=== PATIENT | female | born 1970 | race Caucasian/White ===

== ENCOUNTER 2018-09-28 22:49 | Observation (INO) | payer MEDICAID, SELFPAY ==
[2018-09-28 22:50] VITALS: BP 111/82; PULSE 109; RESP 16; TEMP 36.2; O2SAT 96; BMI 24.0
--- NOTE | 2018-09-28 23:04 | RAD_ITS ---
STUDY: X-RAY CHEST REASON FOR EXAM: Female, 48 years old. Short of breath and bruising. TECHNIQUE: Single AP portable view of the chest. COMPARISON: 02/23/2014. FINDINGS: The lungs are clear and expanded. There is no demonstrated pleural abnormality. Normal size heart. Normal mediastinum and andres. Normal visualized pulmonary arteries. Normal visualized aortic arch and descending thoracic aorta. Normal visualized thoracic spine. Epidural stimulator seen of the lower thoracic spine. Previous cervical spine surgery. Normal visualized ribs, clavicles, and shoulders. There is no demonstrated abnormality of the visualized soft tissue structures of the upper abdomen. RAD/Chest 1 View (Portable) IMPRESSION: No acute chest disease. Electronically Signed: Maxim Woodall MD at 23:28 EDT , Service support ,
--- NOTE | 2018-09-28 23:04 | EKG12_ITS ---
Test Reason : ABNORMAL LABS Blood Pressure : / mmHG Vent. Rate : 111 BPM Atrial Rate : 111 BPM P-R Int : 146 ms QRS Dur : 088 ms QT Int : 376 ms P-R-T Axes : 056 038 053 degrees QTc Int : 511 ms Sinus tachycardia Nonspecific ST abnormality Abnormal ECG Confirmed by AURELIO KRUSE, MACRINA ([id number]), publications editor LIBIA ZAIDI ([id number]) on 10/04/2018 4:17:41 PM Referred By: GLENYS Confirmed By:MACRINA CAREY MD
--- NOTE | 2018-09-28 23:06 | ED.VISSUMM ---
- ER Visit Summary Date of Service: 09/28/18 Chief Complaint: Abnormal labs History of Present Illness: The patient is a 48 F presenting due to abnormal labs. Patient states she was called by her primary care physician this evening and advised to come to the ED. She had blood work drawn earlier today and had elevated kidney function tests. Patient states she has felt fatigued and dizzy. She has had easy bruising. She has been having chest pain intermittently for the past 2 weeks. She states she had no chest pain today. She states she is short of breath which is chronic for her. She has nausea but no vomiting. She stopped her blood pressure medications 4 days ago per her PCP. Denies other complaints. Physical Examination: Vitals are stable. Patient is afebrile. Alert no acute distress. HEENT exam is unremarkable. Neck is supple. Lungs are clear and equal bilaterally. Heart is regular and tachycardic Abdomen is soft nontender nondistended. Extremities ecchymosis bilateral lower extremities Skin is warm and dry. No focal neurologic deficit. Remainder of exam is unremarkable. Emergency Department Course and Treatment: EKG shows sinus tachycardia rate of 111. Chest x-ray shows no acute process. CBC shows white count 13.5. Chemistries show potassium 2.8, BUN 53, creatinine 2.80. Previous creatinine was 1.8, 5 days ago. Troponin is negative. She was given potassium replacement, IV fluids. Discussed with the hospitalist for admission. Disposition: Admission Impression: GARCIA This note was generated with [employer] dictation software. It may contain incorrect words, spelling, and punctuation that were not noted in review of the chart prior to signing ED Disposition - Plan for ED Patient: Referrals: Care Physician,No Primary [NON-STAFF] -
--- NOTE | 2018-09-28 23:09 | ED.DCSUM_ITS ---
- ER Visit Summary Date of Service: 09/28/18 Chief Complaint: Abnormal labs History of Present Illness: The patient is a 48 F presenting due to abnormal labs. Patient states she was called by her primary care physician this evening and advised to come to the ED. She had blood work drawn earlier today and had elevated kidney function tests. Patient states she has felt fatigued and dizzy. She has had easy bruising. She has been having chest pain intermittently for the past 2 weeks. She states she had no chest pain today. She states she is short of breath which is chronic for her. She has nausea but no vomiting. She stopped her blood pressure medications 4 days ago per her PCP. Denies other co mplaints. Physical Examination: Vitals are stable. Patient is afebrile. Alert no acute distress. HEENT exam is unremarkable. Neck is supple. Lungs are clear and equal bilaterally. Heart is regular and tachycardic Abdomen is soft nontender nondistended. Extremities ecchymosis bilateral lower extremities Skin is warm and dry. No focal neurologic deficit. Remainder of exam is unremarkable. Emergency Department Course and Treatment: EKG shows sinus tachycardia rate of 111. Chest x-ray shows no acute process. CBC shows white count 13.5. Chemistries show potassium 2.8, BUN 53, creatinine 2.80. Previous creatinine was 1.8, 5 days ago. Troponin is negative. She was given potassium replacement, IV fluids. Discussed with the hospitalist for admission. Disposition: Admission Impression: GARCIA This note was generated with [employer] dictation software. It may contain incorrect words, spelling, and punctuation that were not noted in review of the chart prior to signing ED Disposition - Plan for ED Patient: Referrals: Care Physician,No Primary [NON-STAFF] -
[2018-09-28 23:21] LABS: Absolute Lymphocyte Count 4.28 X10^3/ul (0.83-4.51); Absolute Neutrophil Count 7.2 X10^3/uL (2.0-7.7); Basophil# 0.03 X10^3/uL; Basophil% 0.2 % (0-1); Eosinophil# 0.97 X10^3/uL; Eosinophils% 7.2 % (0-5); Hematocrit 38.2 % (37-47); Hemoglobin 13.4 g/dl (12.0-15.0); Lymphocyte # 4.28 X10^3/ul (4.0); Lymphocyte % 31.8 % (19-41); Mean Corp Hgb Conc 35.1 g/gl (32-36); Mean Corpuscular Volume 94.1 fL (81-99); Mean Platelet Vol. 9.3 fl (6.2-12.0); Monocyte# 0.94 X10^3/uL; Neutrophil # 7.21 X10^3/uL (2.7-7.7); Neutrophil % 53.4 % (47-70); POSITIVE COUNT NO; POSITIVE DIFFERENTIAL NO; POSITIVE MORPHOLOGY NO; Platelet Count 298 K/mm3 (150-450); RBC Distribution Width CV 13.3 % (11.6-14.6); Red Blood Count 4.06 M/mm3 (4.2-5.4); White Blood Count 13.5 K/mm3 (4.4-11.0)
[2018-09-28 23:31] LABS: Prothrombin Time (Protime)PT. 12.9 SECONDS (11.7-14.9)
[2018-09-28 23:32] LABS: Partial Thromboplast Time 26.8 Seconds (24.1-36.2)
[2018-09-28 23:39] LABS: Anion Gap 12 (5-15); BUN 53 mg/dL (7-18); BUN/Creat Ratio 18.9 RATIO (10-20); Calcium,Total 8.8 mg/dL (8.5-10.1); Chloride 109 mmol/L (98-107); EST Glomerular Filtration Rate 19 mL/min (>60); Est Glom Filt Rate - Afr Amer 23 mL/min (>60); Estimated Creatinine Clearance 21.22 ml/min; Glucose 139 mg/dL (74-106); Potassium 2.8 mmol/L (3.5-5.1); Sodium Level 139 mmol/L (136-145)
--- NOTE | 2018-09-29 00:13 | HP.PCM_ITS ---
Problem List (1) GARCIA (acute kidney injury) Status: Acute (2) Hypokalemia Status: Acute (3) Anxiety and depression Status: Chronic (4) Chronic back pain Status: Chronic Qualifiers: Back pain location: back pain in unspecified location Back pain laterality: unspecified Qualified Code(s): M54.9 - Dorsalgia, unspecified; G89.29 - Other chronic pain (5) HTN (hypertension) Status: Chronic Qualifiers: Hypertension type: essential hypertension Qualified Code(s): I10 - Essential (primary) hypertension History of Present Illness Date of Admission: 09/29/18 Chief Complaint: Abnormal labs, renal function worsening. The patient is a 48 y/o F w/ PMHx: HTN, Anxiety and Depression, Chronic back pain who presents to the [facility] ED on 09/29/18 per PCP direction secondary to abnormal labs with history of recent ongoing to 3-week fatigue, dizziness, lightheadedness, poor oral intake with PCP evaluation and labs obtained with abnormal renal function with creatinine 1.8 at that time with hold on her nephrotoxic BP regimen with recheck on day prior to ED presentation with creatinine noted to be further increased to 2.8 with immediate referral to the ED for evaluation. Patient notes that she has been fatigued, no fevers or chills, poor appetite, nausea in addition to similar prior symptoms. She also notes recent onset over the last approximate week notable extremity ecchymoses which she is never had prior. Work-up in the ED included BC with WBC 13.5, hemoglobin 13.4, platelet 298 without market left shift, unremarkable coags, BMP with potassium 2.8, chloride 109, carbon dioxide 18, BUN/creatinine 53/2.80, glucose 139, troponin less than 0.015, EKG with sinus tachycardia with no acute evidence of ischemia, chest x-ray with no acute cardiopulmonary findings. 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 Past Medical History Past Medical History (Chronic Problems): Chronic Problems Anxiety and depression (Chronic) Chronic back pain (Chronic) HTN (hypertension) (Chronic) Allergies tramadol Allergy (Verified 09/28/18 22:52) Hives Home Medications: Ambulatory Orders Medication Instructions Recorded Amantadine [Symmetrel] 100 mg PO DAILY 09/28/18 Amantadine [Symmetrel] 200 mg PO QHS 09/28/18 Aripiprazole [Abilify] 10 mg PO DAILY 09/28/18 Dextroamphetamine/Amphetamine 40 mg PO DAILY 09/28/18 [Adderall 20 mg Tablet] Hydrochlorothiazide [Hctz] 25 mg PO DAILY 09/28/18 Lorazepam [Ativan] 1 mg PO DAILY PRN PRN 09/28/18 Valsartan 160 mg PO DAILY 09/28/18 Surgical History: - - Spinal cord stimulator placement, neck surgery x3, lumbar back surgery x3, appendectomy, hysterectomy. Psychiatric History: Anxiety, Attn. 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 Smoking Status: Former smoker - Quit cigarette tobacco smoking approximately 8 months prior to current presentation with prior to this 1 pack/day. Tobacco Use: Non-smoker Alcohol: None Drugs: None - *Family History Maternal History Items: - - Patient notes a maternal family history of heart disease. Paternal History Items: - - Patient notes her father had severe back issues and of massive pulmonary emboli presumed secondary to immobility. Review of Systems Constitutional: Reports: Anorexia, Malaise, Weakness, Fatigue. Denies: Chills, Fever, Weight Change HEENT: Denies: Head Aches, Sinus Congestion, Sinus Drainage Cardiovascular: Denies: Chest Pain, Palpitations Respiratory: Denies: Cough, Shortness of breath at rest, Sputum production Gastrointestinal: Reports: Nausea. Denies: Abdominal Pain, Vomiting Genitourinary: Denies: Dysuria Musculoskeletal: Reports: Back Pain, Joint Pain, Joint stiffness, Joint swelling, Joint Tenderness, Leg Pain, Neck Pain Skin: Reports: Skin Changes. Denies: Rash, Wounds Neurological: Denies: Numbness, Tingling, Focal weakness Psychiatric: Reports: Anxiety, Depression. Denies: Homicidal Ideations, Suicidal Ideations Hematologic/ Lymphatic: Reports: Easy Bruising. Denies: Easy Bleeding VTE Information - Inpt Only VTE Present on Admission: No VTE Mechan Device Prophylaxis: None VTE Pharm Prophylaxis ordered?: No Reason prophylaxis not ordered:: Treatment Not Indicated Patient Problems: Active and Suspected Problems GARCIA (acute kidney injury) (Acute) Hypokalemia (Acute) Subjective: Seated upright in the ED, no acute distress, fatigued appearance. Objective: Physical Examination: General: awake, alert, oriented x 3 and cooperative, seated upright in the ED bed, fatigued appearance, no acute distress. Skin: normal color, turgor, no icterus, cyanosis except noted various staged ecchymoses to primarily the upper extremities as well as lower extremities and some very scant on the abdomen. HEENT: AT/NC, EOMI, PERRLA, mildly dry MM, no carotid bruits or JVD noted. Lungs: CTA bilaterally, moderate effort, mild decrease BL bases, no rales, ronchi or wheezing. Heart: Regular rate and rhythm; no gallop, rub audible. Abdomen: soft, NTTP, ND, normal BS, no HSM. Extremities: no cyanosis, clubbing, or edema. Neurological: patient awake, alert, oriented x 3; cognitive function intact; pupils equally reactive to light and accomodation; cranial nerves II-XII grossly normal, moving all 4 extremities, no focal deficits, strength moderately globally decreased. Psychiatric: affect appears fatigued, no acute evidence of depressive or anxiety feelings. - Physical Exam Vital Signs Temp Pulse Resp BP Pulse Ox 97.2 F L 109 H 16 111/82 H 96 09/28/18 22:50 09/28/18 22:50 09/28/18 22:50 09/28/18 22:50 09/28/18 22:50 Oxygen Delivery Method Room Air Weight: 140 lb Body Mass Index (BMI) 24.0 Laboratory Tests Past 24 Hrs 09/28/18 09/28/18 09/28/18 23:11 23:11 23:11 WBC 13.5 H RBC 4.06 L Hgb 13.4 Hct 38.2 MCV 94.1 MCH 33.0 H MCHC 35.1 RDW 13.3 RDW Differential 46.0 H Plt Count 298 MPV 9.3 Immature Gran % (Auto) 0.400 Neut % (Auto) 53.4 Lymph % (Auto) 31.8 [place] % (Auto) 7.0 Eos % (Auto) 7.2 H Baso % (Auto) 0.2 Absolute Neuts (auto) 7.2 Absolute Lymphs (auto) 4.28 Total Counted Not Reportable PT 12.9 INR 1.0 APTT 26.8 Sodium 139 Potassium 2.8 L Chloride 109 H Carbon Dioxide 18.0 L Anion Gap 12 BUN 53 H Creatinine 2.80 H Estim Creat Clear Calc 21.22 Est GFR (MDRD) Af Amer 23 L Est GFR (MDRD) Non-Af 19 L BUN/Creatinine Ratio 18.9 Glucose 139 H Calcium 8.8 Troponin I < 0.015 Assessment/Plan All Active Problems GARCIA (acute kidney injury) (Acute) Hypokalemia (Acute) The patient is a 48 y/o F w/ PMHx: HTN, Anxiety and Depression, Chronic back pain who presents to the [facility] ED on 09/29/18 per PCP direction secondary to abnormal labs with history of recent ongoing to 3-week fatigue, dizziness, lightheadedness, poor oral intake with PCP evaluation and labs obtained with abnormal renal function with creatinine 1.8 at that time with hold on her neph rotoxic BP regimen with recheck on day prior to ED presentation with creatinine noted to be further increased to 2.8 with immediate referral to the ED for evaluation. (1) Acute kidney injury: Unclear etiology, worsening function. Admission BUN/Cr 53/2.80, prior baseline creatinine noted to be normal although last 08/18/2012 0.9, most recent PCP directed 1.8. Will admit to [facility], will aggressively hydrate, hold nephrotoxic medications and repeat chemistry in AM. Will obtain renal US, FeNa assessment and request Nephrology consultation. (2) Hypokalemia: Admission K+ 2.8, supplementation given, repeat level in AM. Magnesium level pending. (3) Hyperglycemia: Admission glucose 139, hemoglobin A1c pending. (4) Frequent, New Onset Ecchymoses: Unclear etiology, CBC with normal hemoglobin and platelets as well as unremarkable coags. Given acute kidney injury suspect this is possibly a medication side effect. As noted amantadine has a frequent side effect of bruising and potentially with her renal dysfunction this is been exacerbated. As noted this is a medication that is not supposed to be abruptly discontinued therefore we will renally dose to 100 mg daily and would need to plan taper to ascertain if this is the etiology. (5) Anxiety and Depression: Given renal function changes will renally dose amantadine as unfortunately medication that we do not want to stop abruptly 100 mg daily. This medication does have a possible side effect of bruising which is one more common therefore consideration for weaning may need to be undertaken. We will continue patient Abilify as well as Ativan although will restrict dosing given renal function changes. Will hold patient Adderall and further rate renal function, if worsened may need to consider renal dosing or discontinuation. (6) Hypertension: She recently discontinued on her regimen secondary to worsening renal function, in interim we will maintain on PRN hydralazine. (7) DVT prophylaxis: Given recent severe onset of bruising will defer SCDs and chemoprophylaxis pending further evaluation. Code Visit Inpatient E&M: 04164 Init Hosp L3
[2018-09-29] MEDS: Potassium Chloride 10mEq/100mL 10 MEQ/100 ML IV.SOLN. 100 MEQ IV BOLUS ×4 (00:32→04:25)
[2018-09-29 00:53] VITALS: BMI 23.8
--- NOTE | 2018-09-29 01:11 | US_ITS ---
STUDY: RENAL ULTRASOUND - COMPLETE REASON FOR EXAM: Female, 48 years old. 3 week history of back pain and acute renal failure. TECHNIQUE: Ultrasound evaluation of the kidneys was performed with real-time and static van-scale imaging. COMPARISON: None. FINDINGS: RIGHT KIDNEY: Normal location of the right kidney, which is normal in size. The right kidney measures 11 cm x 5 cm x 6 cm. There is a normal cortex of the right kidney. The renal cortex measures 1.4 cm. There is a 6 mm x 11 mm x 7 mm renal cyst. Multiple small intrarenal calculi. The largest measures 3 mm. There is no right hydronephrosis. DISTAL RIGHT URETER: There is non-visualization of the distal right ureter. There is no demonstrated right ureterovesical junction calculus. There is a visualized right ureteral jet. LEFT KIDNEY: Normal location of the left kidney, which is normal in size. The left kidney measures 10.5 cm x 4.3 cm x 5.1 cm. There is diffuse thinning of the renal cortex. The renal cortex measures 0.8 cm. There is a 1.8 cm x 1.8 cm x 1.1 cm cyst. 2 small nonobstructive intrarenal calculi. The largest measures 4 mm. There is no left hydronephrosis. DISTAL LEFT URETER: There is non-visualization of the distal left ureter. There is no demonstrated left ureterovesical junction calculus. There is a visualized left ureteral jet. BLADDER: The distended urinary bladder has a volume of 346 ml. There is a normal wall thickness of the distended urinary bladder. There is no demonstrated mass within the urinary bladder. There are no demonstrated bladder calculi. US/Kidney and Bladder IMPRESSION: Small bilateral renal cysts and nonobstructing bilateral intrarenal calculi. Electronically Signed: Rivera Blakely, at 10:52 EDT , Service support ,
[2018-09-29 01:17] VITALS: BP 113/71; PULSE 83; RESP 18; TEMP 36.4; O2SAT 97
[2018-09-29 01:26] LABS: Magnesium 2.3 mg/dL (1.6-2.6)
[2018-09-29] MEDS: HYDROcodone Bitartrate/Apap 5/325 Tablet PO ×4 (01:31→21:45)
[2018-09-29] MEDS: 0.9% Normal Saline 1,000 ML 999 ML IV ×2 (01:32→03:16)
[2018-09-29 02:05] LABS: Hemoglobin A1c 5.7 % (4.2-6.3)
[2018-09-29] MEDS: 0.9% Normal Saline 1,000 ML 150 ML IV ×3 (04:14→19:44)
[2018-09-29] MEDS: Acetaminophen 325 MG Tablet 650 MG PO (04:18)
[2018-09-29] MEDS: LORazepam 1 MG Tablet PO (04:36)
[2018-09-29 06:15] LABS: Absolute Lymphocyte Count 3.24 X10^3/ul (0.83-4.51); Absolute Neutrophil Count 4.7 X10^3/uL (2.0-7.7); Basophil# 0.03 X10^3/uL; Basophil% 0.3 % (0-1); Eosinophil# 0.69 X10^3/uL; Eosinophils% 7.3 % (0-5); Hematocrit 34.5 % (37-47); Hemoglobin 11.8 g/dl (12.0-15.0); Lymphocyte # 3.24 X10^3/ul (4.0); Lymphocyte % 34.3 % (19-41); Mean Corp Hgb Conc 34.2 g/gl (32-36); Mean Corpuscular Hgb 32.4 pg (27.0-32.0); Mean Corpuscular Volume 94.8 fL (81-99); Mean Platelet Vol. 10.2 fl (6.2-12.0); Monocyte# 0.69 X10^3/uL; Monocyte% 7.3 % (0-10); Neutrophil # 4.74 X10^3/uL (2.7-7.7); Neutrophil % 50.2 % (47-70); Platelet Count 247 K/mm3 (150-450); RBC Distribution Width CV 13.1 % (11.6-14.6); RBC Distribution Width SD 43.7 fl (35.1-43.9); Red Blood Count 3.64 M/mm3 (4.2-5.4); White Blood Count 9.5 K/mm3 (4.4-11.0)
[2018-09-29 06:21] LABS: POSITIVE COUNT NO; POSITIVE DIFFERENTIAL NO; POSITIVE MORPHOLOGY NO
[2018-09-29 06:39] LABS: AST(SGOT) 26 U/L (15-37); Alanine Aminotransfer ALT/SGPT 33 U/L (13-56); Alkaline Phosphatase 131 U/L (45-117); Anion Gap 9 (5-15); BUN 42 mg/dL (7-18); BUN/Creat Ratio 21.3 RATIO (10-20); Calcium,Total 7.4 mg/dL (8.5-10.1); Chloride 117 mmol/L (98-107); Creatinine, Serum 1.97 mg/dL (0.55-1.02); EST Glomerular Filtration Rate 29 mL/min (>60); Est Glom Filt Rate - Afr Amer 35 mL/min (>60); Estimated Creatinine Clearance 30.16 ml/min; Glucose 91 mg/dL (74-106); Potassium 3.3 mmol/L (3.5-5.1); Sodium Level 143 mmol/L (136-145)
--- NOTE | 2018-09-29 07:43 | PCM.PN.HOSP ---
Patient Problems: Active and Suspected Problems GARCIA (acute kidney injury) (Acute) Hypokalemia (Acute) Subjective: Seen complains of feeling weak. Also complains of easy bruisability Objective: GENERAL: cooperative HEENT: Atraumatic; moist oral mucosa EYES; Anicteric, Normal Conjunctiva NECK; supple, normal thyroid, no distended JVD. RESPIRATORY: Diminished to auscultation bilaterally, CARDIOVASCULAR: Regular S1 S2, no audible murmurs GI: soft, non-tender, normoactive bowel sounds, : No Renal angle tenderness; EXTREMITIES: No edema, no clubbing, no cyanosis. MUSCULOSKELETAL: No Joint Tenderness; NEURO: Awake; no lateralizing signs. SKIN: Bruises on low back as well as thighs PSYCH; flat affect Vitals/I&O's: Vital Signs Temp Pulse Resp BP Pulse Ox 97.5 F L 83 18 113/71 97 09/29/18 01:17 09/29/18 01:17 09/29/18 01:17 09/29/18 01:17 09/29/18 01:17 Oxygen Delivery Method Room Air Weight: 62.959 kg Body Mass Index (BMI) 23.8 Intake and Output for Last 24 Hours 09/27/18 09/28/18 09/29/18 23:59 23:59 23:59 Intake Total 2821 / 2821 Output Total 1200 / 1200 Balance 1621 / 1621 Laboratory Results 09/28/18 23:11: WBC 13.5 H, RBC 4.06 L, Hgb 13.4, Hct 38.2, MCV 94.1, MCH 33.0 H, MCHC 35.1, RDW 13.3, RDW Differential 46.0 H, Plt Count 298, MPV 9.3, Immature Gran % (Auto) 0.400, Neut % (Auto) 53.4, Lymph % (Auto) 31.8, [place] % (Auto) 7.0, Eos % (Auto) 7.2 H, Baso % (Auto) 0.2, Absolute Neuts (auto) 7.2, Absolute Lymphs (auto) 4.28, Total Counted Not Reportable 09/28/18 23:11: PT 12.9, INR 1.0, APTT 26.8 09/28/18 23:11: Sodium 139, Potassium 2.8 L, Chloride 109 H, Carbon Dioxide 18.0 L, Anion Gap 12, BUN 53 H, Creatinine 2.80 H, Estim Creat Clear Calc 21.22, Est GFR (MDRD) Af Amer 23 L, Est GFR (MDRD) Non-Af 19 L, BUN/Creatinine Ratio 18.9, Glucose 139 H, Calcium 8.8, Troponin I < 0.015 09/28/18 23:11: Magnesium 2.3 09/28/18 23:11: Hemoglobin A1c 5.7 09/29/18 05:40: WBC 9.5, RBC 3.64 L, Hgb 11.8 L, Hct 34.5 L, MCV 94.8, MCH 32.4 H, MCHC 34.2, RDW 13.1, RDW Differential 43.7, Plt Count 247, MPV 10.2, Immature Gran % (Auto) 0.600, Neut % (Auto) 50.2, Lymph % (Auto) 34.3, [place] % (Auto) 7.3, Eos % (Auto) 7.3 H, Baso % (Auto) 0.3, Absolute Neuts (auto) 4.7, Absolute Lymphs (auto) 3.24, Total Counted Not Reportable 09/29/18 05:40: Sodium 143, Potassium 3.3 L, Chloride 117 H, Carbon Dioxide 17.0 L, Anion Gap 9, BUN 42 H, Creatinine 1.97 H, Estim Creat Clear Calc 30.16, Est GFR (MDRD) Af Amer 35 L, Est GFR (MDRD) Non-Af 29 L, BUN/Creatinine Ratio 21.3 H, Glucose 91, Calcium 7.4 L, Total Bilirubin 0.30, AST 26, ALT 33, Alkaline Phosphatase 131 H, Total Protein 6.0 L, Albumin 3.0 L, Globulin 3.0, Albumin/Globulin Ratio 1.0 09/29/18 06:45: Urine Creatinine 21.20 Current Medications Acetaminophen (Tylenol) 650 mg PO Q6H PRN PRN PRN Reason: Non-cardiac pain (mod-severe) Last Admin: 09/29/18 04:18 Dose: 650 mg Hydrocodone Bitart/Acetaminophen ([place] 5mg-325mg) 1 - 2 tablet PO Q6H PRN PRN PRN Reason: MOD-SEVERE PAIN (-03/31) Last Admin: 09/29/18 01:31 Dose: 2 tablet Al Hydroxide/Mg Hydroxide (Mylanta Ii) 15 - 30 ml PO Q4H PRN PRN PRN Reason: INDIGESTION Albuterol Sulfate (Ventolin Aerosols) 2.5 mg INHALATION Q2H PRN PRN PRN Reason: dyspnea, wheezing Amantadine HCl (Symmetrel) 100 mg PO DAILY JULIUS Aripiprazole (Abilify) 10 mg PO DAILY JULIUS Hydralazine HCl (Apresoline Iv) 10 mg IV Q4H PRN PRN PRN Reason: SBP > 160 Sodium Chloride () 1,000 mls @ 150 mls/hr IV .Q6H40M JULIUS Last Admin: 09/29/18 04:14 Dose: 150 mls/hr Lorazepam (Ativan) 1 mg PO DAILY PRN PRN PRN Reason: ANXIETY Last Admin: 09/29/18 04:36 Dose: 1 mg Morphine Sulfate () 1 - 2 mg IV Q4H PRN PRN PRN Reason: PAIN Ondansetron HCl (Zofran) 4 mg IV Q8H PRN PRN PRN Reason: NAUSEA/VOMITING Sodium Chloride () 5 - 15 ml IV UD PRN PRN Reason: SALINE FLUSH Medical Necessity - Tobacco Use Smoking Status: Former smoker Tobacco Use: Non-smoker Assessment/Plan All Active Problems GARCIA (acute kidney injury) (Acute) Hypokalemia (Acute) Patient is a 48-year-old lady who was sent to the ED by the PCP with abnormal labs and complaints of 3-week history of progressive weakness. Patient was found to have BUN of 53 and creatinine of 2.8. On assessment of acute kidney injury made admitted to a regular nursing floor for further management 1. Acute kidney injury patient has been admitted to a regular nursing floor currently being managed with aggressive IV fluid resuscitation with monitoring of electrolytes and consultation placed to nephrology with patient history of easy bruisability and generalized fatigue and worsening kidney function plan is to rule out rheumatologic etiology of her impaired kidney function. Ordered CAREN reflex panel 2. Hypokalemia with potassium of 2.8 repleted per protocol 3. Depression with anxiety 4. Hypertension blood pressure controlled meds 5. DVT prophylaxis low risk placed on bilateral SCDs Code Visit Inpatient E&M: 41467 [facility] Hosp L3
[2018-09-29 08:00] VITALS: BP 113/76; PULSE 75; RESP 18; TEMP 36.6; O2SAT 100
--- NOTE | 2018-09-29 08:09 | NURSING ---
ultrasound called and left message- this rn returned call at this time- state they are very busy and will call when they have a time. Gave work cell number for direct call.
--- NOTE | 2018-09-29 08:27 | NURSING ---
pt reports that she has had tingling to right hand and numbness to right 3 small toes possibly due to issues with nerves- has appt with Dr. Hall to determine if carpal tunnel or pinched nerve in neck.
[2018-09-29] MEDS: Morphine 2 MG/ML Syringe IV (08:45)
[2018-09-29] MEDS: 0.9% NaCl Peripheral Flush Adult/Peds IV ×2 (08:45→11:17)
[2018-09-29] MEDS: Amantadine 100 MG Capsule PO (08:45)
[2018-09-29] MEDS: ARIPiprazole 10 MG Tablet PO (08:45)
[2018-09-29 09:30] VITALS: O2SAT 100
[2018-09-29 11:19] LABS: Bacteria 0 SEEN /hpf (None Seen); Mucous, Urine 0 SEEN /hpf (<or=2+); Red Blood Cells-Urine 0 SEEN /hpf (0-5); White Blood Cells 0 SEEN /hpf (0-5)
[2018-09-29 11:25] LABS: Color, Urine Straw (Yellow); Glucose, Dipstick Normal (Normal); Ketone-Dipstick Negative (Negative); Leukocyte Esterase-Dipstick Negative /ul (Negative); Nitrite-Dipstick Negative (Negative); Occult Blood-Urine Negative /ul (Negative); Protein-Dipstick Negative (Negative); Specific Gravity, Urine 1.005 (1.002-1.030); Urine Bilirubin Dipstick Negative (Negative); Urine Clarity Clear (Clear); Urine Urobilinogen Normal (Normal)
[2018-09-29 11:32] LABS: Squamous Epithelial Cells - UA 0-5 SEEN /hpf (5-10)
--- NOTE | 2018-09-29 11:50 | CASEMGMT ---
RITCHIE LANDA DIRECTOR OF QUALITY CM to room to meet with patient for initial transition planning/care coordination assessment. RITCHIE LANDA introduced self and role at [facility]. Pt voices understanding and consents to assessment at this time. Pt sitting up on edge of bed in no distress at this time. Fiance and daughter @ bedside. Pt is A/O at this time and answers all questions appropriately. Care providers, pharmacy, and demographics verified/updated at this time. PCP: Isabel Specialists: Orthopaedic surgeon in [place] and a physician for her spinal cord stimulator. Preferred Pharmacy: [facility] Insurance: [employer]. States she does not have a Ophthalmic Medical Assistant. Prescription Benefit: Yes Living Will/HPOA: does not have LW or HCPOA . Interested in more information and would like to talk to ABDIEL to complete paperwork. AD instruction booklet given to pt. Leilani MEADOWS, notified. LNOK: Daughter. Living Arrangements: she lives in [place], but is currently staying with her daughter who lives in the area. Transportation: Pt states she rarely drives. States her daughter or fially usually provides transportation. has used [employer] transportation services on occasion. DME: Pt states she has the following: Spinal cord stimulator, back brace, wrist braces. Has a cane but does not use. has sleep apnea and used to have a CPAP but cannot find it and has not used in a couple of years. States she got it @ [facility]. Instructed pt to contact [facility] to find out what she will need to do to get another CPAP unit. Pt made aware she may need to have sleep studies completed again. Pt also aware [facility] is out of business but someone would be available who can assist her with getting her info transferred to another DME of her choice. Pt states she may be interested in getting a walker at some point. Pt made aware if she decides she wants/needs one, that she can discuss this with her PCP. HHC/SNF: No history of either and denies needs. No needs identified. Pt wishes to return home and has no concerns with going home at time of discharge. CM to follow for discharge planning/needs. Pt voices no further concerns/needs at this time. Advised pt to ask for CM if any further questions/concerns/needs arise. Voices understanding. PLAN: Home Berny GUIDO RN, CM
[2018-09-29 13:17] LABS: Urine Sodium 116 mmol/L (Not Establ.)
[2018-09-29 13:59] VITALS: BP 133/93; PULSE 73; RESP 18; TEMP 36.4; O2SAT 100
--- NOTE | 2018-09-29 15:04 | PCM.CONS.R ---
Consultation - Renal 09/29/18 PCP/ Referring MD: Requesting physician: Tressa Whiting Primary care physician: Bryon Hall MD Reason for Consultation:: GARCIA - History of Present Illness History of Present Illness: The patient is a 48 year old F who presented to [facility] for change in renal function. Her baseline creatinine is 0.9 in 2012, increased to 2.8 on admission now 1.97 with iv hydration. PMH for HTN, Anxiety and Depression, Chronic back pain with stimulator. She complains of poor appetite for a few days. She noticed bruising purplish discoloration of skin on arms and knees/legs past 2-3weeks. She had nausea without vomiting. Complains of a nonproductive cough, no hemoptysis or epistaxis. She noticed some chest pain. Had episode of fever x1 day. She is on HCTZ and valsartan for hypertension discontinued on admission. Potassium low at 2.8 to 3.3 today. Denied diarrhea. She is not on potassium supplements. She denied syncope but complained of fatigue and generalized weakness. Denies myalgias. No FH for lupus. She has foot drop from chronic back pain s/p neck and back surgery, nerve stimulator. Work-up in the ED included BC with WBC 13.5, hemoglobin 13.4, platelet 298. Renal US showed nonobstructing renal calculi with cysts bilaterally. CXR without infiltrates. Serologies ordered by PCP include CAREN with reflex panel. She has a history of tobacco use, quit 8 months ago, drinks socially weekly. She denied IVDA. 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 Denied liver disease, hepatitis. - Allergies Allergies: Allergies tramadol Allergy (Verified 09/28/18 22:52) Hives - Current Medications Current Medications: Current Medications Hydrocodone Bitart/Acetaminophen ([place] 5mg-325mg) 1 - 2 tablet PO Q4H PRN PRN PRN Reason: MOD-SEVERE PAIN (-03/31) Last Admin: 09/29/18 11:17 Dose: 2 tablet Al Hydroxide/Mg Hydroxide (Mylanta Ii) 15 - 30 ml PO Q4H PRN PRN PRN Reason: INDIGESTION Albuterol Sulfate (Ventolin Aerosols) 2.5 mg INHALATION Q2H PRN PRN PRN Reason: dyspnea, wheezing Amantadine HCl (Symmetrel) 100 mg PO DAILY JULIUS Last Admin: 09/29/18 08:45 Dose: 100 mg Aripiprazole (Abilify) 10 mg PO DAILY [facility] Last Admin: 09/29/18 08:45 Dose: 10 mg Sodium Chloride () 1,000 mls @ 150 mls/hr IV .Q6H40M JULIUS Last Admin: 09/29/18 12:57 Dose: 150 mls/hr Lorazepam (Ativan) 1 mg PO DAILY PRN PRN PRN Reason: ANXIETY Last Admin: 09/29/18 04:36 Dose: 1 mg Morphine Sulfate () 1 - 2 mg IV Q4H PRN PRN PRN Reason: PAIN Last Admin: 09/29/18 08:45 Dose: 2 mg Ondansetron HCl (Zofran) 4 mg IV Q8H PRN PRN PRN Reason: NAUSEA/VOMITING Sodium Chloride () 5 - 15 ml IV UD PRN PRN Reason: SALINE FLUSH Last Admin: 09/29/18 11:17 Dose: 5 ml - Past Medical History Past Medical History (Chronic Problems): Chronic Problems Anxiety and depression (Chronic) Chronic back pain (Chronic) HTN (hypertension) (Chronic) - Past Surgical History Surgical History: - - Spinal cord stimulator placement, neck surgery x3, lumbar back surgery x3, appendectomy, hysterectomy. - Social History Marital Status: Smoking Status: Former smoker Alcohol: Occasional - social drinker Drugs: None - denied IVDA - Family History Maternal History Items: Diabetes, Heart Disease, Hypertension, - Paternal History Items: - - Patient notes her father had severe back issues and of massive pulmonary emboli presumed secondary to immobility. Review of Systems Constitutional: Reports: Anorexia, Fever, Malaise, Weakness, Fatigue. Denies: Chills Eyes: Denies: Blurred vision, Vision Change HEENT: Denies: Head Aches Cardiovascular: Reports: Chest Pain - episodic. Denies: Edema, Orthopnea, Syncope Respiratory: Reports: Cough. Denies: Hemoptysis, Shortness of Breath Gastrointestinal: Reports: Nausea, - - bloated, anorexia. Denies: Abdominal Pain, Constipation, Diarrhea, Vomiting Genitourinary: Reports: - - no change in output. Denies: Dysuria, Hematuria Musculoskeletal: Reports: Back Pain, Neck Pain Skin: Reports: Rash, - - purpuric, lace like rash on knees, BLE, BUE Neurological: Reports: - - drag feet, no CVA hx. Denies: Focal weakness, Tremor, Seizures Psychiatric: Reports: Anxiety, Depression, - - ADHD Endocrine: Denies: Change in Body Habitus Hematologic/ Lymphatic: Reports: Easy Bruising, Purpura. Denies: Petechiae, Hx of blood clot Patient Problems: Active and Suspected Problems GARCIA (acute kidney injury) (Acute) Hypokalemia (Acute) - Physical Exam General: Alert, Oriented x3, Cooperative, No apparent distress HEENT: PERRLA, EOMI Oral: Dry Mucosa Neck: Supple, No JVD Lungs: Clear to auscultation Cardiovascular: Regular rate, No rub noted Abdomen: Bowel Sounds Present, Soft, Non Tender, Non-Distended, No Hepato-splenomegaly, - - RLE implantable stimulator Extremities: No clubbing, No cyanosis, No edema, Peripheral Pulses Normal Skin: - - mottling of legs bilaterally, multiple tattoos on ankles, upper extrem Musculoskeletal: No Muscle Wasting, Arthritic Changes Lymphatic: No Cervical, Supraclavicular, or Inguinal Adenopathy Neurological: Cranial nerves II-XII grossly intact Psych/Mental Status: Anxious, Alert and oriented to time, place, person, mood and affect Vital Signs Temp Pulse Resp BP Pulse Ox 97.5 F L 73 18 133/93 H 100 09/29/18 13:59 09/29/18 13:59 09/29/18 13:59 09/29/18 13:59 09/29/18 13:59 Oxygen Delivery Method Room Air Weight: 62.959 kg Body Mass Index (BMI) 23.8 Intake and Output for Last 24 Hours 09/27/18 09/28/18 09/29/18 23:59 23:59 23:59 Intake Total 4188 / 4188 Output Total 1525 / 1525 Balance 2663 / 2663 Laboratory Tests Past 24 Hrs 09/28/18 09/28/18 09/28/18 23:11 23:11 23:11 WBC 13.5 H RBC 4.06 L Hgb 13.4 Hct 38.2 MCV 94.1 MCH 33.0 H MCHC 35.1 RDW 13.3 RDW Differential 46.0 H Plt Count 298 MPV 9.3 Immature Gran % (Auto) 0.400 Neut % (Auto) 53.4 Lymph % (Auto) 31.8 [place] % (Auto) 7.0 Eos % (Auto) 7.2 H Baso % (Auto) 0.2 Absolute Neuts (auto) 7.2 Absolute Lymphs (auto) 4.28 Total Counted Not Reportable PT 12.9 INR 1.0 APTT 26.8 Sodium 139 Potassium 2.8 L Chloride 109 H Carbon Dioxide 18.0 L Anion Gap 12 BUN 53 H Creatinine 2.80 H Estim Creat Clear Calc 21.22 Est GFR (MDRD) Af Amer 23 L Est GFR (MDRD) Non-Af 19 L BUN/Creatinine Ratio 18.9 Glucose 139 H Hemoglobin A1c Calcium 8.8 Magnesium Total Bilirubin AST ALT Alkaline Phosphatase Troponin I < 0.015 Total Protein Albumin Globulin Albumin/Globulin Ratio Urine Color Urine Clarity Urine pH Ur Specific [place] Urine Protein Urine Glucose (UA) Urine Ketones Urine Occult Blood Urine Nitrite Urine Bilirubin Urine Urobilinogen Ur Leukocyte Esterase Urine RBC Urine WBC Ur Squamous Epith Cells Urine Bacteria Urine Mucus Ur Random Sodium Urine Creatinine CAREN Screen ANA LILIA-1 Antibody SS-A/Ro IgG Antibody SS-B/La IgG Antibody Sm (Cottrell) Antibody PSYCHOMETRICIAN Antibody Scl-70 Scleroderma Ab Double Strand DNA Ab Centromere B Antibody 09/28/18 09/28/18 09/29/18 23:11 23:11 05:00 WBC RBC Hgb Hct MCV MCH MCHC RDW RDW Differential Plt Count MPV Immature Gran % (Auto) Neut % (Auto) Lymph % (Auto) [place] % (Auto) Eos % (Auto) Baso % (Auto) Absolute Neuts (auto) Absolute Lymphs (auto) Total Counted PT INR APTT Sodium Potassium Chloride Carbon Dioxide Anion Gap BUN Creatinine Estim Creat Clear Calc Est GFR (MDRD) Af Amer Est GFR (MDRD) Non-Af BUN/Creatinine Ratio Glucose Hemoglobin A1c 5.7 Calcium Magnesium 2.3 Total Bilirubin AST ALT Alkaline Phosphatase Troponin I Total Protein Albumin Globulin Albumin/Globulin Ratio Urine Color Urine Clarity Urine pH Ur Specific [place] Urine Protein Urine Glucose (UA) Urine Ketones Urine Occult Blood Urine Nitrite Urine Bilirubin Urine Urobilinogen Ur Leukocyte Esterase Urine RBC Urine WBC Ur Squamous Epith Cells Urine Bacteria Urine Mucus Ur Random Sodium Urine Creatinine CAREN Screen Pending ANA LILIA-1 Antibody Pending SS-A/Ro IgG Antibody Pending SS-B/La IgG Antibody Pending Sm (Cottrell) Antibody Pending PSYCHOMETRICIAN Antibody Pending Scl-70 Scleroderma Ab Pending Double Strand DNA Ab Pending Centromere B Antibody Pending 09/29/18 09/29/18 09/29/18 05:40 05:40 06:45 WBC 9.5 RBC 3.64 L Hgb 11.8 L Hct 34.5 L MCV 94.8 MCH 32.4 H MCHC 34.2 RDW 13.1 RDW Differential 43.7 Plt Count 247 MPV 10.2 Immature Gran % (Auto) 0.600 Neut % (Auto) 50.2 Lymph % (Auto) 34.3 [place] % (Auto) 7.3 Eos % (Auto) 7.3 H Baso % (Auto) 0.3 Absolute Neuts (auto) 4.7 Absolute Lymphs (auto) 3.24 Total Counted Not Reportable PT INR APTT Sodium 143 Potassium 3.3 L Chloride 117 H Carbon Dioxide 17.0 L Anion Gap 9 BUN 42 H Creatinine 1.97 H Estim Creat Clear Calc 30.16 Est GFR (MDRD) Af Amer 35 L Est GFR (MDRD) Non-Af 29 L BUN/Creatinine Ratio 21.3 H Glucose 91 Hemoglobin A1c Calcium 7.4 L Magnesium Total Bilirubin 0.30 AST 26 ALT 33 Alkaline Phosphatase 131 H Troponin I Total Protein 6.0 L Albumin 3.0 L Globulin 3.0 Albumin/Globulin Ratio 1.0 Urine Color Urine Clarity Urine pH Ur Specific [place] Urine Protein Urine Glucose (UA) Urine Ketones Urine Occult Blood Urine Nitrite Urine Bilirubin Urine Urobilinogen Ur Leukocyte Esterase Urine RBC Urine WBC Ur Squamous Epith Cells Urine Bacteria Urine Mucus Ur Random Sodium Urine Creatinine 21.20 CAREN Screen ANA LILIA-1 Antibody SS-A/Ro IgG Antibody SS-B/La IgG Antibody Sm (Cottrell) Antibody PSYCHOMETRICIAN Antibody Scl-70 Scleroderma Ab Double Strand DNA Ab Centromere B Antibody 09/29/18 09/29/18 11:10 11:10 WBC RBC Hgb Hct MCV MCH MCHC RDW RDW Differential Plt Count MPV Immature Gran % (Auto) Neut % (Auto) Lymph % (Auto) [place] % (Auto) Eos % (Auto) Baso % (Auto) Absolute Neuts (auto) Absolute Lymphs (auto) Total Counted PT INR APTT Sodium Potassium Chloride Carbon Dioxide Anion Gap BUN Creatinine Estim Creat Clear Calc Est GFR (MDRD) Af Amer Est GFR (MDRD) Non-Af BUN/Creatinine Ratio Glucose Hemoglobin A1c Calcium Magnesium Total Bilirubin AST ALT Alkaline Phosphatase Troponin I Total Protein Albumin Globulin Albumin/Globulin Ratio Urine Color Straw Urine Clarity Clear Urine pH 7.0 Ur Specific [place] 1.005 Urine Protein Negative Urine Glucose (UA) Normal Urine Ketones Negative Urine Occult Blood Negative Urine Nitrite Negative Urine Bilirubin Negative Urine Urobilinogen Normal Ur Leukocyte Esterase Negative Urine RBC 0 SEEN Urine WBC 0 SEEN Ur Squamous Epith Cells 0-5 SEEN Urine Bacteria 0 SEEN Urine Mucus 0 SEEN Ur Random Sodium 116 Urine Creatinine CAREN Screen ANA LILAI-1 Antibody SS-A/Ro IgG Antibody SS-B/La IgG Antibody Sm (Cottrell) Antibody PSYCHOMETRICIAN Antibody Scl-70 Scleroderma Ab Double Strand DNA Ab Centromere B Antibody Clinical Impression(s) from Imaging Studies Chest X-Ray 09/28/18 23:04 IMPRESSION: No acute chest disease. Electronically Signed: Maxim Woodall MD at 23:28 EDT , Service support , Renal Ultrasound 09/29/18 01:11 IMPRESSION: Small bilateral renal cysts and nonobstructing bilateral intrarenal calculi. Electronically Signed: Rivera Blakely, at 10:52 EDT , Service support , Assessment/Plan All Active Problems GARCIA (acute kidney injury) (Acute) Hypokalemia (Acute) 1. GARCIA with FENA >1%. Creatinine 2.8 improved to 1.97 today with hydration and discontinuation of diuretics and ARB. Continue with iv hydration. Renal US with nonobstructing renal calculi and cysts. Creatinine baseline 0.9 in 2012, 0.85 on 06/24/15 from [facility] records. UA today without protein or microscopic hematuria to suggest vasculitis in kidney. 2. Purpuric rash with leukocytosis, fever at home. Blood cx ordered in ED. Serologies ordered pending. Suggest cryoglobulins, ANCA to evaluate for vasculitis. Pt with multiple tattoos. Denies hepatitis, IVDA. Check hepatitis panel. 3. HTN hold ARB, diuretics. BP stable 4. Hypokalemia likely due to poor intake, thiazide diuretic. Agree with replacement K 2.8 increased to 3.3 today 5. NAG metabolic acidosis, denied diarrhea. 6. Anxiety, ADHD on adderall 7. Hx tobacco, etoh use.
--- NOTE | 2018-09-29 15:10 | CON.PCM_ITS ---
Consultation - Renal 09/29/18 PCP/ Referring MD: Requesting physician: Tressa Whiting Primary care physician: Bryon Hall MD Reason for Consultation:: GARCIA - History of Present Illness History of Present Illness: The patient is a 48 year old F who presented to [facility] for change in renal function. Her baseline creatinine is 0.9 in 2012, increased to 2.8 on admission now 1.97 with iv hydration. PMH for HTN, Anxiety and Depression, Chronic back pain with stimulator. She complains of poor appetite for a few days. She noticed bruising purplish discoloration of skin on arms and knees/legs past 2- 3weeks. She had nausea without vomiting. Complains of a nonproductive cough, no hemoptysis or epistaxis. She noticed some chest pain. Had episode of fever x1 day. She is on HCTZ and valsartan for hypertension discontinued on admission. Potassium low at 2.8 to 3.3 today. Denied diarrhea. She is not on potassium supplements. She denied syncope but complained of fatigue and generalized weakness. Denies myalgias. No FH for lupus. She has foot drop from chronic back pain s/p neck and back surgery, nerve stimulator. Work-up in the ED included BC with WBC 13.5, hemoglobin 13.4, platelet 298. R enal US showed nonobstructing renal calculi with cysts bilaterally. CXR without infiltrates. Serologies ordered by PCP include CAREN with reflex panel. She has a history of tobacco use, quit 8 months ago, drinks socially weekly. She denied IVDA. 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 Denied liver disease, hepatitis. - Allergies Allergies: Allergies tramadol Allergy (Verified 09/28/18 22:52) Hives - Current Medications Current Medications: Current Medications Hydrocodone Bitart/Acetaminophen ([place] 5mg-325mg) 1 - 2 tablet PO Q4H PRN PRN PRN Reason: MOD-SEVERE PAIN (-03/31) Last Admin: 09/29/18 11:17 Dose: 2 tablet Al Hydroxide/Mg Hydroxide (Mylanta Ii) 15 - 30 ml PO Q4H PRN PRN PRN Reason: INDIGESTION Albuterol Sulfate (Ventolin Aerosols) 2.5 mg INHALATION Q2H PRN PRN PRN Reason: dyspnea, wheezing Amantadine HCl (Symmetrel) 100 mg PO DAILY JULIUS Last Admin: 09/29/18 08:45 Dose: 100 mg Aripiprazole (Abilify) 10 mg PO DAILY [facility] Last Admin: 09/29/18 08:45 Dose: 10 mg Sodium Chloride () 1,000 mls @ 150 mls/hr IV .Q6H40M JULIUS Last Admin: 09/29/18 12:57 Dose: 150 mls/hr Lorazepam (Ativan) 1 mg PO DAILY PRN PRN PRN Reason: ANXIETY Last Admin: 09/29/18 04:36 Dose: 1 mg Morphine Sulfate () 1 - 2 mg IV Q4H PRN PRN PRN Reason: PAIN Last Admin: 09/29/18 08:45 Dose: 2 mg Ondansetron HCl (Zofran) 4 mg IV Q8H PRN PRN PRN Reason: NAUSEA/VOMITING Sodium Chloride () 5 - 15 ml IV UD PRN PRN Reason: SALINE FLUSH Last Admin: 09/29/18 11:17 Dose: 5 ml - Past Medical History Past Medical History (Chronic Problems): Chronic Problems Anxiety and depression (Chronic) Chronic back pain (Chronic) HTN (hypertension) (Chronic) - Past Surgical History Surgical History: - - Spinal cord stimulator placement, neck surgery x3, lumbar back surgery x3, appendectomy, hysterectomy. - Social History Marital Status: Smoking Status: Former smoker Alcohol: Occasional - social drinker Drugs: None - denied IVDA - Family History Maternal History Items: Diabetes, Heart Disease, Hypertension, - Paternal History Items: - - Patient notes her father had severe back issues and of massive pulmonary emboli presumed secondary to immobility. Review of Systems Constitutional: Reports: Anorexia, Fever, Malaise, Weakness, Fatigue. Denies: Chills Eyes: Denies: Blurred vision, Vision Change HEENT: Denies: Head Aches Cardiovascular: Reports: Chest Pain - episodic. Denies: Edema, Orthopnea, Syncope Respiratory: Reports: Cough. Denies: Hemoptysis, Shortness of Breath Gastrointestinal: Reports: Nausea, - - bloated, anorexia. Denies: Abdominal Pain, Constipation, Diarrhea, Vomiting Genitourinary: Reports: - - no change in output. Denies: Dysuria, Hematuria Musculoskeletal: Reports: Back Pain, Neck Pain Skin: Reports: Rash, - - purpuric, lace like rash on knees, BLE, BUE Neurological: Reports: - - drag feet, no CVA hx. Denies: Focal weakness, Tremor, Seizures Psychiatric: Reports: Anxiety, Depression, - - ADHD Endocrine: Denies: Change in Body Habitus Hematologic/ Lymphatic: Reports: Easy Bruising, Purpura. Denies: Petechiae, Hx of blood clot Patient Problems: Active and Suspected Problems GARCIA (acute kidney injury) (Acute) Hypokalemia (Acute) - Physical Exam General: Alert, Oriented x3, Cooperative, No apparent distress HEENT: PERRLA, EOMI Oral: Dry Mucosa Neck: Supple, No JVD Lungs: Clear to auscultation Cardiovascular: Regular rate, No rub noted Abdomen: Bowel Sounds Present, Soft, Non Tender, Non-Distended, No Hepato- splenomegaly, - - RLE implantable stimulator Extremities: No clubbing, No cyanosis, No edema, Peripheral Pulses Normal Skin: - - mottling of legs bilaterally, multiple tattoos on ankles, upper extrem Musculoskeletal: No Muscle Wasting, Arthritic Changes Lymphatic: No Cervical, Supraclavicular, or Inguinal Adenopathy Neurological: Cranial nerves II-XII grossly intact Psych/Mental Status: Anxious, Alert and oriented to time, place, person, mood and affect Vital Signs Temp Pulse Resp BP Pulse Ox 97.5 F L 73 18 133/93 H 100 09/29/18 13:59 09/29/18 13:59 09/29/18 13:59 09/29/18 13:59 09/29/18 13:59 Oxygen Delivery Method Room Air Weight: 62.959 kg Body Mass Index (BMI) 23.8 Intake and Output for Last 24 Hours 09/27/18 09/28/18 09/29/18 23:59 23:59 23:59 Intake Total 4188 / 4188 Output Total 1525 / 1525 Balance 2663 / 2663 Laboratory Tests Past 24 Hrs 09/28/18 09/28/18 09/28/18 23:11 23:11 23:11 WBC 13.5 H RBC 4.06 L Hgb 13.4 Hct 38.2 MCV 94.1 MCH 33.0 H MCHC 35.1 RDW 13.3 RDW Differential 46.0 H Plt Count 298 MPV 9.3 Immature Gran % (Auto) 0.400 Neut % (Auto) 53.4 Lymph % (Auto) 31.8 [place] % (Auto) 7.0 Eos % (Auto) 7.2 H Baso % (Auto) 0.2 Absolute Neuts (auto) 7.2 Absolute Lymphs (auto) 4.28 Total Counted Not Reportable PT 12.9 INR 1.0 APTT 26.8 Sodium 139 Potassium 2.8 L Chloride 109 H Carbon Dioxide 18.0 L Anion Gap 12 BUN 53 H Creatinine 2.80 H Estim Creat Clear Calc 21.22 Est GFR (MDRD) Af Amer 23 L Est GFR (MDRD) Non-Af 19 L BUN/Creatinine Ratio 18.9 Glucose 139 H Hemoglobin A1c Calcium 8.8 Magnesium Total Bilirubin AST ALT Alkaline Phosphatase Troponin I < 0.015 Total Protein Albumin Globulin Albumin/Globulin Ratio Urine Color Urine Clarity Urine pH Ur Specific [place] Urine Protein Urine Glucose (UA) Urine Ketones Urine Occult Blood Urine Nitrite Urine Bilirubin Urine Urobilinogen Ur Leukocyte Esterase Urine RBC Urine WBC Ur Squamous Epith Cells Urine Bacteria Urine Mucus Ur Random Sodium Urine Creatinine CAREN Screen ANA LILIA-1 Antibody SS-A/Ro IgG Antibody SS-B/La IgG Antibody Sm (Cottrell) Antibody SUPERVISOR [employer]PAIR Antibody Scl-70 Scleroderma Ab Double Strand DNA Ab Centromere B Antibody 09/28/18 09/28/18 09/29/18 23:11 23:11 05:00 WBC RBC Hgb Hct MCV MCH MCHC RDW RDW Differential Plt Count MPV Immature Gran % (Auto) Neut % (Auto) Lymph % (Auto) [place] % (Auto) Eos % (Auto) Baso % (Auto) Absolute Neuts (auto) Absolute Lymphs (auto) Total Counted PT INR APTT Sodium Potassium Chloride Carbon Dioxide Anion Gap BUN Creatinine Estim Creat Clear Calc Est GFR (MDRD) Af Amer Est GFR (MDRD) Non-Af BUN/Creatinine Ratio Glucose Hemoglobin A1c 5.7 Calcium Magnesium 2.3 Total Bilirubin AST ALT Alkaline Phosphatase Troponin I Total Protein Albumin Globulin Albumin/Globulin Ratio Urine Color Urine Clarity Urine pH Ur Specific [place] Urine Protein Urine Glucose (UA) Urine Ketones Urine Occult Blood Urine Nitrite Urine Bilirubin Urine Urobilinogen Ur Leukocyte Esterase Urine RBC Urine WBC Ur Squamous Epith Cells Urine Bacteria Urine Mucus Ur Random Sodium Urine Creatinine CAREN Screen Pending ANA LILIA-1 Antibody Pending SS-A/Ro IgG Antibody Pending SS-B/La IgG Antibody Pending Sm (Cottrell) Antibody Pending SUPERVISOR BOIL[employer] REPAIR Antibody Pending Scl-70 Scleroderma Ab Pending Double Strand DNA Ab Pending Centromere B Antibody Pending 09/29/18 09/29/18 09/29/18 05:40 05:40 06:45 WBC 9.5 RBC 3.64 L Hgb 11.8 L Hct 34.5 L MCV 94.8 MCH 32.4 H MCHC 34.2 RDW 13.1 RDW Differential 43.7 Plt Count 247 MPV 10.2 Immature Gran % (Auto) 0.600 Neut % (Auto) 50.2 Lymph % (Auto) 34.3 [place] % (Auto) 7.3 Eos % (Auto) 7.3 H Baso % (Auto) 0.3 Absolute Neuts (auto) 4.7 Absolute Lymphs (auto) 3.24 Total Counted Not Reportable PT INR APTT Sodium 143 Potassium 3.3 L Chloride 117 H Carbon Dioxide 17.0 L Anion Gap 9 BUN 42 H Creatinine 1.97 H Estim Creat Clear Calc 30.16 Est GFR (MDRD) Af Amer 35 L Est GFR (MDRD) Non-Af 29 L BUN/Creatinine Ratio 21.3 H Glucose 91 Hemoglobin A1c Calcium 7.4 L Magnesium Total Bilirubin 0.30 AST 26 ALT 33 Alkaline Phosphatase 131 H Troponin I Total Protein 6.0 L Albumin 3.0 L Globulin 3.0 Albumin/Globulin Ratio 1.0 Urine Color Urine Clarity Urine pH Ur Specific [place] Urine Protein Urine Glucose (UA) Urine Ketones Urine Occult Blood Urine Nitrite Urine Bilirubin Urine Urobilinogen Ur Leukocyte Esterase Urine RBC Urine WBC Ur Squamous Epith Cells Urine Bacteria Urine Mucus Ur Random Sodium Urine Creatinine 21.20 CAREN Screen ANA LILIA-1 Antibody SS-A/Ro IgG Antibody SS-B/La IgG Antibody Sm (Cottrell) Antibody SUPERVISOR BOILER REPAIR Antibody Scl-70 Scleroderma Ab Double Strand DNA Ab Centromere B Antibody 09/29/18 09/29/18 11:10 11:10 WBC RBC Hgb Hct MCV MCH MCHC RDW RDW Differential Plt Count MPV Immature Gran % (Auto) Neut % (Auto) Lymph % (Auto) [place] % (Auto) Eos % (Auto) Baso % (Auto) Absolute Neuts (auto) Absolute Lymphs (auto) Total Counted PT INR APTT Sodium Potassium Chloride Carbon Dioxide Anion Gap BUN Creatinine Estim Creat Clear Calc Est GFR (MDRD) Af Amer Est GFR (MDRD) Non-Af BUN/Creatinine Ratio Glucose Hemoglobin A1c Calcium Magnesium Total Bilirubin AST ALT Alkaline Phosphatase Troponin I Total Protein Albumin Globulin Albumin/Globulin Ratio Urine Color Straw Urine Clarity Clear Urine pH 7.0 Ur Specific [place] 1.005 Urine Protein Negative Urine Glucose (UA) Normal Urine Ketones Negative Urine Occult Blood Negative Urine Nitrite Negative Urine Bilirubin Negative Urine Urobilinogen Normal Ur Leukocyte Esterase Negative Urine RBC 0 SEEN Urine WBC 0 SEEN Ur Squamous Epith Cells 0-5 SEEN Urine Bacteria 0 SEEN Urine Mucus 0 SEEN Ur Random Sodium 116 Urine Creatinine CAREN Screen ANA LILIA-1 Antibody SS-A/Ro IgG Antibody SS-B/La IgG Antibody Sm (Cottrell) Antibody SUPERVISOR BOIL[employer] REPAIR Antibody Scl-70 Scleroderma Ab Double Strand DNA Ab Centromere B Antibody Clinical Impression(s) from Imaging Studies Chest X-Ray 09/28/18 23:04 IMPRESSION: No acute chest disease. Electronically Signed: Maxim Woodall MD at 23:28 EDT , Service support , Renal Ultrasound 09/29/18 01:11 IMPRESSION: Small bilateral renal cysts and nonobstructing bilateral intrarenal calculi. Electronically Signed: Rivera Blakely, at 10:52 EDT , Service support , Assessment/Plan All Active Problems GARCIA (acute kidney injury) (Acute) Hypokalemia (Acute) 1. GARCIA with FENA >1%. Creatinine 2.8 improved to 1.97 today with hydration and discontinuation of diuretics and ARB. Continue with iv hydration. Renal US with nonobstructing renal calculi and cysts. Creatinine baseline 0.9 in 2012, 0.85 on 06/24/15 from [facility] records. UA today without protein or microscopic hematuria to suggest vasculitis in kidney. 2. Purpuric rash with leukocytosis, fever at home. Blood cx ordered in ED. Serologies ordered pending. Suggest cryoglobulins, ANCA to evaluate for vasculitis. Pt with multiple tattoos. Denies hepatitis, IVDA. Check hepatitis panel. 3. HTN hold ARB, diuretics. BP stable 4. Hypokalemia likely due to poor intake, thiazide diuretic. Agree with replacement K 2.8 increased to 3.3 today 5. NAG metabolic acidosis, denied diarrhea. 6. Anxiety, ADHD on adderall 7. Hx tobacco, etoh use.
--- NOTE | 2018-09-29 17:17 | CASEMGMT ---
Social Work Note SW received referral for advanced directives. SW to follow up with pt tomorrow in regards to advanced directives. Nelida Mckee PLASTIC TILE LAYER, LINING MACHINE TENDER
--- NOTE | 2018-09-29 18:37 | NURSING ---
acetaminophen intake from 0000 up to 1900- (end of shift)= 2600mg
[2018-09-29 20:20] VITALS: BP 117/80; PULSE 73; RESP 18; TEMP 36.6; O2SAT 100
[2018-09-30] MEDS: 0.9% Normal Saline 1,000 ML 150 ML IV (02:07)
[2018-09-30 02:19] VITALS: BP 126/74; PULSE 77; RESP 18; TEMP 36.2; O2SAT 99
[2018-09-30] MEDS: HYDROcodone Bitartrate/Apap 5/325 Tablet PO ×2 (03:25→07:17)
[2018-09-30 05:35] LABS: Hematocrit 32.7 % (37-47); Hemoglobin 11.1 g/dl (12.0-15.0); Mean Corp Hgb Conc 33.9 g/gl (32-36); Mean Corpuscular Hgb 32.5 pg (27.0-32.0); Mean Corpuscular Volume 95.6 fL (81-99); Platelet Count 239 K/mm3 (150-450); RBC Distribution Width CV 13.4 % (11.6-14.6); RBC Distribution Width SD 44.4 fl (35.1-43.9); Red Blood Count 3.42 M/mm3 (4.2-5.4); White Blood Count 8.1 K/mm3 (4.4-11.0)
[2018-09-30 05:38] LABS: Scan Indicated on CBC? Y/N NO
[2018-09-30 05:42] LABS: Anion Gap 6 (5-15); BUN 22 mg/dL (7-18); BUN/Creat Ratio 19.6 RATIO (10-20); Calcium,Total 7.9 mg/dL (8.5-10.1); Chloride 121 mmol/L (98-107); Creatinine, Serum 1.12 mg/dL (0.55-1.02); EST Glomerular Filtration Rate 55 mL/min (>60); Est Glom Filt Rate - Afr Amer 67 mL/min (>60); Estimated Creatinine Clearance 53.04 ml/min; Glucose 113 mg/dL (74-106); Magnesium 1.9 mg/dL (1.6-2.6); Potassium 3.8 mmol/L (3.5-5.1); Sodium Level 145 mmol/L (136-145)
[2018-09-30 08:19] VITALS: BP 135/87; PULSE 86; RESP 13; TEMP 36.6; O2SAT 96
--- NOTE | 2018-09-30 08:50 | PCM.PN.REN ---
Patient Problems: Active and Suspected Problems GARCIA (acute kidney injury) (Acute) Hypokalemia (Acute) Subjective: Renal fxn improving. Baseline creatinine 0.85. BP stable off valsartan and hctz. - Physical Exam General: Alert, Oriented x3, Cooperative Lungs: Clear to auscultation Cardiovascular: Regular rate Abdomen: Bowel Sounds Present, Soft, Non Tender, Non-Distended Extremities: No edema Vital Signs Temp Pulse Resp BP Pulse Ox 97.2 F L 77 18 126/74 H 99 09/30/18 02:19 09/30/18 02:19 09/30/18 02:19 09/30/18 02:19 09/30/18 02:19 Oxygen Delivery Method Room Air Weight: 62.959 kg Body Mass Index (BMI) 23.8 Intake and Output for Last 24 Hours 09/28/18 09/29/18 09/30/18 23:59 23:59 23:59 Intake Total 5635 / 5635 2778 / 2778 Output Total 1525 / 1525 600 / 600 Balance 4110 / 4110 2178 / 2178 Laboratory Tests Past 24 Hrs 09/29/18 09/29/18 09/29/18 05:00 11:10 11:10 WBC RBC Hgb Hct MCV MCH MCHC RDW RDW Differential Plt Count MPV Sodium Potassium Chloride Carbon Dioxide Anion Gap BUN Creatinine Estim Creat Clear Calc Est GFR (MDRD) Af Amer Est GFR (MDRD) Non-Af BUN/Creatinine Ratio Glucose Calcium Magnesium Urine Color Straw Urine Clarity Clear Urine pH 7.0 Ur Specific [place] 1.005 Urine Protein Negative Urine Glucose (UA) Normal Urine Ketones Negative Urine Occult Blood Negative Urine Nitrite Negative Urine Bilirubin Negative Urine Urobilinogen Normal Ur Leukocyte Esterase Negative Urine RBC 0 SEEN Urine WBC 0 SEEN Ur Squamous Epith Cells 0-5 SEEN Urine Bacteria 0 SEEN Urine Mucus 0 SEEN Ur Random Sodium 116 Serum Cryoglobulins CAREN Screen Pending c-ANCA Antibody p-ANCA Antibody ANA LILIA-1 Antibody Pending SS-A/Ro IgG Antibody Pending SS-B/La IgG Antibody Pending Sm ([place]ottrell) Antibody Pending [address] LIGHT Antibody Pending Scl-70 Scleroderma Ab Pending Double Strand DNA Ab Pending Centromere B Antibody Pending Hep Bs Antigen Hep B Core Total Ab Hepatitis C Ab (EIA) 09/29/18 09/29/18 09/30/18 19:03 19:03 05:05 WBC 8.1 RBC 3.42 L Hgb 11.1 L Hct 32.7 L MCV 95.6 MCH 32.5 H MCHC 33.9 RDW 13.4 RDW Differential 44.4 H Plt Count 239 MPV 10.0 Sodium Potassium Chloride Carbon Dioxide Anion Gap BUN Creatinine Estim Creat Clear Calc Est GFR (MDRD) Af Amer Est GFR (MDRD) Non-Af BUN/Creatinine Ratio Glucose Calcium Magnesium Urine Color Urine Clarity Urine pH Ur Specific [place] Urine Protein Urine Glucose (UA) Urine Ketones Urine Occult Blood Urine Nitrite Urine Bilirubin Urine Urobilinogen Ur Leukocyte Esterase Urine RBC Urine WBC Ur Squamous Epith Cells Urine Bacteria Urine Mucus Ur Random Sodium Serum Cryoglobulins Pending CAREN Screen c-ANCA Antibody Pending p-ANCA Antibody Pending ANA LILIA-1 Antibody SS-A/Ro IgG Antibody SS-B/La IgG Antibody Sm ([place]) Antibody [address] LIGHT Antibody Scl-70 Scleroderma Ab Double Strand DNA Ab Centromere B Antibody Hep Bs Antigen Pending Hep B Core Total Ab Pending Hepatitis C Ab (EIA) Pending 09/30/18 05:05 WBC RBC Hgb Hct MCV MCH MCHC RDW RDW Differential Plt Count MPV Sodium 145 Potassium 3.8 Chloride 121 H Carbon Dioxide 18.0 L Anion Gap 6 BUN 22 H Creatinine 1.12 H Estim Creat Clear Calc 53.04 Est GFR (MDRD) Af Amer 67 Est GFR (MDRD) Non-Af 55 L BUN/Creatinine Ratio 19.6 Glucose 113 H Calcium 7.9 L Magnesium 1.9 Urine Color Urine Clarity Urine pH Ur Specific [place] Urine Protein Urine Glucose (UA) Urine Ketones Urine Occult Blood Urine Nitrite Urine Bilirubin Urine Urobilinogen Ur Leukocyte Esterase Urine RBC Urine WBC Ur Squamous Epith Cells Urine Bacteria Urine Mucus Ur Random Sodium Serum Cryoglobulins CAREN Screen c-ANCA Antibody p-ANCA Antibody ANA LILIA-1 Antibody SS-A/Ro IgG Antibody SS-B/La IgG Antibody Sm ([place]) Antibody [address] LIGHT Antibody Scl-70 Scleroderma Ab Double Strand DNA Ab Centromere B Antibody Hep Bs Antigen Hep B Core Total Ab Hepatitis C Ab (EIA) Medical Necessity - Tobacco Use Smoking Status: Former smoker Tobacco Use: Non-smoker Assessment/Plan All Active Problems GARCIA (acute kidney injury) (Acute) Hypokalemia (Acute) 1. GARCIA with FENA >1%. Creatinine 2.8 improved to 1.12 today with hydration and discontinuation of diuretics and ARB. Stop iv fluids. Ok to dc home from renal standpoint. Creatinine baseline 0.85 on 06/24/15 from [facility] records. UA today without protein or microscopic hematuria to suggest vasculitis in kidney. 2. Purpuric rash with leukocytosis improving. Await serologies. 3. HTN hold ARB, diuretics on discharge until f/u in office 4. Hypokalemia resolved with replacement 5. NAG metabolic acidosis, denied diarrhea. Check urine anion gap. 6. Nonobstructive renal stones asymptomatic.
[2018-09-30] MEDS: Amantadine 100 MG Capsule PO (08:55)
[2018-09-30] MEDS: ARIPiprazole 10 MG Tablet PO (08:55)
--- NOTE | 2018-09-30 10:00 | DCINST_ITS ---
- Discharge Diagnoses Current Active Problems: Current Active and Chronic Problems GARCIA (acute kidney injury) (Acute) Anxiety and depression (Chronic) Chronic back pain (Chronic) Hypokalemia (Acute) HTN (hypertension) (Chronic) You will use the following diet at home:: No restrictions Your food should be the consistency of: Regular Your liquids should be the consistency of: Regular/Thin Discharge Activity: Return to Normal Activity Weight Bearing Status: Full weight bearing Allergies/Adverse Reactions: Allergies tramadol Allergy (Verified 09/28/18 22:52) Hives Medications to take at Discharge Amantadine [Symmetrel] 100 mg PO DAILY 09/28/18 Amantadine [Symmetrel] 200 mg PO QHS 09/28/18 Aripiprazole [Abilify] 10 mg PO DAILY 09/28/18 Dextroamphetamine/Amphetamine [Adderall 20 mg Tablet] 40 mg PO DAILY 09/28/18 Lorazepam [Ativan] 1 mg PO DAILY PRN PRN 09/28/18 Primary Care Physician: Care Physician,No Primary [NON-STAFF] - Please follow up with your Primary Care Physician in: in one week Test Results: Test results from this visit will be discussed in further detail at your follow- up appointment, if applicable. Please Follow Up With: Mariela Espinoza DO When: 2 weeks
--- NOTE | 2018-09-30 10:00 | CASEMGMT ---
Addendum entered by Brian Tinsley 09/30/18 10:28: Call to [facility] re: rollator. Cost will be around $79.00 after insurance. Pt is agreeable to this. Pt states her fiance will call in credit card information and they will pickling tank operator tomorrow. Called to [facility] to update. Ying HERNANDEZ Original Note: RITCHIE CM Note: Spoke with pt re: needing rollator on dc. Script faxed to [facility] with request to deliver to [facility]. Pt plans to dc home today with daughter. No other dc needs dentified. Ying CRENSHAWM
--- NOTE | 2018-09-30 10:41 | CASEMGMT ---
Social Work MS2 Reason for referral: Advanced directives Summary: Presented to patient's room to discuss and complete advanced directives. Patient sitting in chart, dressed and waiting for IV to be discontinued so that can go home. Introduced to self and reason for visit. Patient confirms interested in competing advanced directives, but today would just like to have the information to take home and review. Did let patient know that directives could be completed today, prior to home going. Also discussed that it is important to have a conversation with the designees on the advanced directives to ensure that patient's wishes can be followed. Educated patient that social work offers outpatient appointments free of charge should patient want to come back in. After consideration, patient chose to take information home, review, talk with family members, and then call back in for an appointment. Patient states, you will be hearing from me soon. No other services requested. Patient discharging home with daughter today. -PAYAL Whittington, IDENTIFIER [employer]ORSE
--- NOTE | 2018-09-30 19:38 | PCM.HOSP.N ---
Hospitalist Note Patient was seen and examined today, she appears stable for discharge home, she will require a wheeled walker, a prescription was signed for this durable medical equipment by myself, I feel the patient would benefit from the use of a wheeled walker due to her instability from her chronic degenerative disc disease of her neck and back. Patient understands how to use this equipment and is expected to use it.
--- NOTE | 2018-10-01 08:24 | PCM.DC.SUM ---
Discharge Date and Diagnosis Date of Admission: 09/29/18 Date of Discharge: 09/30/18 - Primary Discharge Diagnosis #1 acute kidney injury secondary to diuretic usage #2 hypokalemia-secondary to diuretic usage #3 hypertension #4 chronic pain syndrome #5 degenerative joint disease of the cervical and lumbar spine - Secondary Discharge Diagnosis Chronic Problems Anxiety and depression (Chronic) Chronic back pain (Chronic) HTN (hypertension) (Chronic) Hospital Course and Treatment Operations: None, - - LAVH/RSO Procedures: None Summary of Care Provided: The patient is a 48 year old F was seen in the emergency room at [facility] after being sent to the emergency room for evaluation due to abnormal labs performed as an outpatient. It was noted on her outpatient labs that she had abnormal kidney function tests, patient complained of feeling fatigued and dizzy. Workup in the emergency room included labs which showed a white blood cell count of 13.5, potassium was low at 2.8, BUN was elevated at 53, creatinine was elevated at 2.8. Patient was given potassium replacement and IV fluids, she was admitted to [place] [id number] and seen in consultation by nephrology. Serial labs were obtained which improved over her hospital stay. Patient had been taking an ARB and a diuretic as an outpatient and this was felt to contribute to her electrolyte abnormalities and her abnormal kidney function. On 09/30/18, patient was seen and examined felt to be in stable condition for discharge home: On examination she appeared in good health and spirits. Vital signs as documented. Skin warm and dry and without overt rashes. Neck without JVD. Lungs clear. Heart exam notable for regular rhythm, normal sounds and absence of murmurs, rubs or gallops. Abdomen unremarkable and without evidence of organomegaly, masses, or abdominal aortic enlargement. Extremities nonedematous. Neuro: Cranial nerves II through XII are grossly intact, no focal motor deficits were noted, sensation to light touch and pinprick is intact. Psych: Patient is alert and oriented x3, she does not appear anxious or depressed On 09/30/18, patient was seen and examined felt in stable condition for discharge home - Physical Exam Vital Signs Temp Pulse Resp BP Pulse Ox 97.8 F 86 13 135/87 H 96 09/30/18 08:19 09/30/18 08:19 09/30/18 08:19 09/30/18 08:19 09/30/18 08:19 Oxygen Delivery Method Room Air Weight: 62.959 kg Body Mass Index (BMI) 23.8 Intake and Output for Last 24 Hours 09/29/18 09/30/18 10/01/18 23:59 23:59 23:59 Intake Total 5635 / 5635 2778 / 2778 Output Total 1525 / 1525 600 / 600 Balance 4110 / 4110 2178 / 2178 Discharge Activity: Return to Normal Activity Weight Bearing Status: Full weight bearing Home Medications: Medications to take at Discharge Amantadine [Symmetrel] 100 mg PO DAILY 09/28/18 Amantadine [Symmetrel] 200 mg PO QHS 09/28/18 Aripiprazole [Abilify] 10 mg PO DAILY 09/28/18 Dextroamphetamine/Amphetamine [Adderall 20 mg Tablet] 40 mg PO DAILY 09/28/18 Lorazepam [Ativan] 1 mg PO DAILY PRN PRN 09/28/18 Primary Care Physician: Care Physician,No Primary [NON-STAFF] - Please follow up with your Primary Care Physician in: in one week Please Follow Up With: Mariela Espinoza DO When: 2 weeks Disposition: Home Minutes spent on discharge:: 32 Patient Condition:: Stable Medical Necessity - Tobacco Use Smoking Status: Former smoker Tobacco Use: Non-smoker Meaningful Use Info Meaningful Use Diagnoses (Choose all that apply): None applicable Code Visit Inpatient E&M: 68666 Disch Hosp
[2018-10-01 11:18] LABS: ANTINUCLEAR ANTIBODIES DIRECT Negative (Negative)
[2018-10-01 20:06] LABS: Cytoplasmic Ab (C-ANCA) <1:20 titer (Neg:<1:20)
[2018-10-02 15:30] LABS: Perinuclear Ab (P-ANCA) <1:20 titer (Neg:<1:20)
[2018-10-04 14:06] LABS: HEPATITIS B SURFACE AG Negative (Negative)
[2018-10-04 14:11] LABS: Hep C Antibodies <0.1 s/co ratio (0.0-0.9); Hepatitis B Core Ab Total Negative (Negative)
== END 2018-09-30 10:45 | disposition home or self-care (01) | DRG 469 ==
LOC: ED 23:21 → MS2 09-29 00:38
PROVIDERS: Internal Medicine; Internal Medicine Nephrology; Admitting Provider Family Medicine; Emergency Provider Emergency Medicine; Family Provider Family Medicine; PCP Family Medicine; Visit Provider Internal Medicine
DX: N17.9 Acute kidney failure, unspecified (principal); E87.6 Hypokalemia; I10 Essential (primary) hypertension; M47.896 Other spondylosis, lumbar region; M47.892 Other spondylosis, cervical region; G89.4 Chronic pain syndrome; F41.9 Anxiety disorder, unspecified; F32.9 Major depressive disorder, single episode, unspecified; E87.2 Acidosis; F90.9 Attention-deficit hyperactivity disorder, unspecified type; Z87.891 Personal history of nicotine dependence; Z79.899 Other long term (current) drug therapy; R73.9 Hyperglycemia, unspecified
CPT/HCPCS: 36415; 71045; 76770; 80048; 80053; 81001; 82570; 82595; 83036; 83735; 84300; 84484; 85025; 85027; 85610; 85730; 86038; 86225; 86235; 86256; 86704; 86803; 87340; 93005; 97162; 99218; 99285; J7030; J7040; A4216; G0378

== ENCOUNTER → 2018-11-03 | Outpatient (CLI) | payer MEDICAID, SELFPAY ==
[2018-09-29 00:53] VITALS: BMI 23.8
[2018-11-03 13:47] LABS: Albumin, Serum 3.5 g/dL (3.2-5.0); BUN 17 mg/dL (7-18); Chloride 118 mmol/L (98-107); Creatinine, Serum 1.54 mg/dL (0.55-1.02); EST Glomerular Filtration Rate 38 mL/min (>60); Est Glom Filt Rate - Afr Amer 46 mL/min (>60); Glucose 122 mg/dL (74-106); Phosphorus 3.2 mg/dL (2.5-4.9); Potassium 3.1 mmol/L (3.5-5.1); Sodium Level 146 mmol/L (136-145)
== END | disposition home or self-care (01) ==
LOC: POLAB3 11:35
PROVIDERS: Family Provider Family Medicine; PCP Family Medicine; Visit Provider Internal Medicine Nephrology
DX: N17.9 Acute kidney failure, unspecified (principal)
CPT/HCPCS: 36415; 80069

== ENCOUNTER → 2018-11-24 | Outpatient (CLI) | payer MEDICAID, SELFPAY ==
[2018-09-29 00:53] VITALS: BMI 23.8
[2018-11-24 17:18] LABS: Anion Gap 11 (5-15); BUN 34 mg/dL (7-18); Calcium,Total 9.2 mg/dL (8.5-10.1); Chloride 116 mmol/L (98-107); Creatinine, Serum 1.36 mg/dL (0.55-1.02); EST Glomerular Filtration Rate 44 mL/min (>60); Est Glom Filt Rate - Afr Amer 53 mL/min (>60); Glucose 95 mg/dL (74-106); Potassium 3.2 mmol/L (3.5-5.1); Sodium Level 143 mmol/L (136-145)
== END | disposition home or self-care (01) ==
LOC: POLAB3 16:10
PROVIDERS: Family Provider Family Medicine; PCP Family Medicine; Visit Provider Internal Medicine Nephrology
DX: N17.9 Acute kidney failure, unspecified (principal)
CPT/HCPCS: 36415; 80048

== ENCOUNTER → 2018-12-02 | Outpatient (CLI) | payer MEDICAID, SELFPAY ==
[2018-09-29 00:53] VITALS: BMI 23.8
--- NOTE | 2018-12-02 12:42 | STRESSREP ---
Stress Test Report Date: December 02, 2018 Procedure: Pharmacologic stress nuclear imaging study Indications: Chest pain Consent: Per the patient Procedure: The patient underwent pharmacologic (Regadenoson) evaluation with a peak heart rate of 110 beats per minute (63 %predicted maximal heart rate) and a peak blood pressure of 146/93 mmHg. The baseline ECG demonstrated normal sinus rhythm. EKG during lexiscan infusion revealed sinus tachycardia with [address] depression in the inferior leads. EKG post infusion revealed no significant change from baseline. [There were no cardiac dysrhythmias pretest, during pharmacologic infusion, or recovery]. [There was no complaint of chest discomfort during pharmacologic infusion or recovery]. The examination was discontinued secondary to completion of protocol. Impression: 1. Lexiscan stress test test is[negative] for Lexiscan infusion induced EKG changes of ischemia. 2. Lexiscan stress test test negative for Lexiscan infusion induced chest pain. 3. Results of the nuclear portion of the test is as below Myocardial perfusion imaging study: Technique: The patient was injected with 11.2 millicuries of technetium 99m Cardiolite and subsequently rest SPECT Cardiolite nuclear imaging was obtained in the horizontal long, vertical long, and short axis views. The patient underwent pharmacologic (Regadenoson) evaluation. Please see above for details. The patient was injected with 33.5 millicuries of technetium 99m Cardiolite and subsequently stress SPECT Cardiolite nuclear imaging was obtained in the horizontal long, vertical long, and short axis views. A gated Cardiolite study at peak stress was obtained. Interpretation: Rest and stress SPECT Cardiolite nuclear imaging status post realignment, normalization, and attenuation correction demonstrate normal myocardial radioisotope uptake in both the rest and stress images. Gated images reveal no significant regional wall motion abnormalities. The reported LVEF is greater than 70 %. Impression: 1. There is no evidence of significant ischemia or infarction. 2. Estimated ejection fraction is greater than 70%. This note was generated with VoiceTrustation software. It may contain incorrect words, spelling, and punctuation that were not noted in checking the note before signing.
== END | disposition home or self-care (01) ==
LOC: CVS 06:01
PROVIDERS: Family Provider Family Medicine; PCP Family Medicine; Referring Provider Family Medicine; Visit Provider Family Medicine
DX: R07.9 Chest pain, unspecified (principal)
CPT/HCPCS: 78452; 93017; A9500; A4216; J2785

== ENCOUNTER 2020-02-26 11:55 | Inpatient (IN) | payer MEDICAID, SELFPAY ==
[2018-09-29 00:53] VITALS: BMI 23.8
[2020-02-26] VITALS (29 sets, daily range): BP systolic 136–170; BP diastolic 94–116; PULSE 101–118; RESP 12–125; TEMP 35–37.6; O2SAT 97–100; BMI 29.5; BMI 24.7; BMI 24.8
--- NOTE | 2020-02-26 12:06 | RAD_ITS ---
STUDY: X-RAY CHEST REASON FOR EXAM: Female, 49 years old. Unresponsive, intubated. TECHNIQUE: AP COMPARISON: 09/28/2018 FINDINGS: Endotracheal tube is present with tip terminating 4.2 cm above the johan. Enteric tube terminates in the lower esophagus. Lungs are underexpanded with atelectasis in the right more than left lung base. There is no demonstrated pleural abnormality. Normal size heart. Normal mediastinum and andres. Normal visualized pulmonary arteries. There is atherosclerotic calcification of the aortic arch with tortuosity. Neurostimulator device projects over the lower thoracic spine. Normal visualized ribs, clavicles, and shoulders. There is no demonstrated abnormality of the visualized soft tissue structures of the upper abdomen. RAD/Chest 1 View IMPRESSION: 1. Satisfactory position of endotracheal tube. 2. Suboptimal enteric tube terminating in the lower esophagus. Recommend advancing 10-15 cm. Electronically Signed: Wale Mosher MD (Brooks) at 13:48 EDT , Service support ,
--- NOTE | 2020-02-26 12:06 | CT_ITS ---
STUDY: CT BRAIN WITHOUT CONTRAST REASON FOR EXAM: Female, 49 years old. STROKE PROTOCAL RADIATION DOSAGE (If Supplied By Facility): CTDIvol = ( 44.99 ) mGy, DLP = ( 762.36 ) mGycm TECHNIQUE: Transaxial CT imaging of the brain was performed without administration of intravenous contrast material. Individualized dose optimization techniques were used for this CT. COMPARISON: No relevant priors. FINDINGS: Normal soft tissue structures. Normal calvarium. Normal size ventricles and extra-axial spaces for the patient''s age. Normal white matter tracts of the cerebral hemispheres. Normal basal ganglia and thalami. Normal brainstem. Normal cerebellum. There is no intracranial hemorrhage. There are no findings of an acute ischemic infarction. Normal visualized paranasal sinuses. CT/Brain/Head without Contrast IMPRESSION: 1. No acute intracranial hemorrhage or mass effect. N.B. : The above information has been verbally conveyed by Wale Mosher MD (Brooks) to Francis Ferrera MD, on 02/26/2020 12:37:21 (ET). Electronically Signed: Wale Mosher MD (Brooks) at 12:39 EDT , Service support ,
--- NOTE | 2020-02-26 12:06 | EKG12_ITS ---
Test Reason : STROKE TEAM Blood Pressure : / mmHG Vent. Rate : 108 BPM Atrial Rate : 108 BPM P-R Int : 190 ms QRS Dur : 140 ms QT Int : 372 ms P-R-T Axes : 035 049 040 degrees QTc Int : 498 ms Sinus tachycardia Right bundle branch block Abnormal ECG Confirmed by ELLA KRUSE, ASHLEY ([id number]), acquisition editor KARLEY ZAMBRANO ([id number]) on 02/29/2020 9:49:47 AM Referred By: PROMISE Confirmed By:ASHLEY JARAMILLO MD
--- NOTE | 2020-02-26 12:07 | CT_ITS ---
STUDY: CTA HEAD AND NECK WITH CONTRAST REASON FOR EXAM: Female, 49 years old. STROKE PROTOCAL RADIATION DOSAGE (If Supplied By Facility): CTDIvol = ( 17.05 ) mGy, DLP = ( 648.96 ) mGycm TECHNIQUE: CT angiography was performed with a multi-detector CT scanner. Data acquisition was obtained from the skull base through the vertex following intravenous administration of IV 100mL [id number]-300. MIP images were reconstructed from the axial data set. Post-processing of the angiographic images was performed, with multiplanar reformation and 3D reconstruction. Degree of stenosis (when present) measured utilizing NASCET criteria. Individualized dose optimization techniques were used for this CT. COMPARISON: No relevant priors. FINDINGS: Normal bilateral petrous carotid arteries. Normal right cavernous carotid artery with a normal supraclinoid bifurcation. Normal left cavernous carotid artery with a normal supraclinoid bifurcation. Normal right A1 segments of the anterior cerebral artery. Normal left A1 segments of the anterior cerebral artery. Normal intact anterior communicating artery (ACOM). Normal bilateral A2 segments of the anterior cerebral arteries. Normal right M1 and M2 segments of the middle cerebral arteries, with a normal M1 bifurcation. Normal left M1 and M2 segments of the middle cerebral arteries, with a normal M1 bifurcation. Normal right posterior communicating artery (PCOM). Normal left posterior communicating artery (PCOM). Normal bilateral vertebral arteries. Normal basilar artery with a normal basilar bifurcation. The visualized bilateral superior cerebellar (SCA) arteries are normal. Normal bilateral P1, P2 and visualized P3 segments of the posterior cerebral arteries. There is no demonstrated aneurysm of the [place]. Endotracheal tube noted. AORTIC ARCH: Normal visualized aortic arch. Normal origins of the brachiocephalic, left common carotid, and left subclavian arteries. RIGHT CAROTID ARTERIES: Normal right common carotid artery (CCA). Normal right common carotid bulb. Normal origin of the right internal carotid (ICA) artery without a hemodynamically significant stenosis. There is atherosclerotic tortuous elongation of the cervical portion of the right internal carotid artery. Normal origin of the right external carotid artery (ECA). LEFT CAROTID ARTERIES: Normal left common carotid artery (CCA). There is mild atherosclerotic plaque formation with minimal narrowing of the left carotid bulb. Normal origin of the left internal carotid (ICA) artery without a hemodynamically significant stenosis. There is atherosclerotic tortuous elongation of the cervical portion of the left internal carotid artery. Normal origin of the left external carotid artery (ECA). VERTEBRAL ARTERIES: There is enhancement within the bilateral vertebral arteries with a small right vertebral artery, and a dominant left vertebral artery. Fusion hardware of C4-C7 with degenerative changes of the cervical spine. There is an air-fluid level in the right maxillary sinus. Patient is edentulous. CT/CTA Head AND Neck W/ Contrast IMPRESSION: 1. No large vessel occlusion. 2. No hemodynamically significant stenosis of the carotid arteries. No arterial dissection. N.B. : The above information has been verbally conveyed by Wale Mosher MD (Brooks) to Francis Ferrera MD, on 02/26/2020 12:47:49 (ET). Electronically Signed: Wale Mosher MD (Brooks) at 12:50 EDT , Service support ,
[2020-02-26] MEDS: Rocuronium Bromide 50 MG/5 ML Vial 100 MG IV (12:10)
[2020-02-26] MEDS: Etomidate 20 MG/10 ML Vial IV (12:10)
--- NOTE | 2020-02-26 12:13 | NURSING ---
1210 STROKE ALERT CALLED
--- NOTE | 2020-02-26 12:13 | ED.VIS.GEN ---
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 Last seen normal 12:30 in the morning which was about 12 hours ago. No details about her condition yesterday are known as no family has come. History comes purely from EMS. Her blood sugar was in the 120s, they gave her Narcan without effect, 2 mg intranasally. She has had a pulse and spontaneous breathing since their evaluation. She apparently is on amitriptyline, according to her chart it is likely for depression, EMS states that the bottle was full and it did not appear that she was taking it. - Past Medical History (1) Anxiety and depression Status: Chronic (2) Chronic back pain Status: Chronic (3) HTN (hypertension) Status: Chronic (4) Bipolar 1 disorder Status: Chronic Past Medical History - Allergies and Home Meds Allergies/Adverse Reactions: Allergies tramadol Allergy (Verified 02/26/20 14:01) Hives Surgical History: - - Spinal cord stimulator placement, neck surgery x3, lumbar back surgery x3, appendectomy, hysterectomy. Smoking Status: Former smoker - Family History Maternal Family History: Reports: Diabetes, Heart Disease, Hypertension, - Paternal Family History: Reports: - - Patient notes her father had severe back issues and of massive pulmonary emboli presumed secondary to immobility. Review of Systems ROS: Unable to Obtain Physical Exam Vital Signs/Narrative: Vital Signs Temp Pulse Resp BP Pulse Ox 02/26/20 11:57 97.0 F L 117 H 20 H 145/94 H 100 Inital Vital Signs reviewed: Yes General: Obese, - - Obtunded. Occasionally moaning. Occasional spontaneous movements of all 4 extremities but not withdrawing or localizing or any other response to painful stimulus. Head: Normocephalic, Atraumatic Eyes: - - Pupils are 3 mm bilaterally and nonresponsive to light, appear symmetric. No scleral icterus or conjunctival abnormalities. ENT: TM's clear - Without hemotympanum, Dry mucous membranes - Partially, - - No periorbital ecchymosis, signs of facial trauma, or mastoid ecchymosis/erythema Neck: Supple - Without meningismus, No lymphadenopathy, No JVD Cardiovascular: Regular rate, Regular rhythm, No murmurs, Tachycardia - Mild Respiratory: - - Spontaneous respirations present. Clear to auscultation throughout. Abdomen: Soft, Nondistended, Normal bowel sounds, Mass - Right upper quadrant, at and caudal to diagonal right upper quadrant surgical scar, feels like may be present in abdominal wall, approximately 8-10 cm in length from surgical scar going caudally Back: Normal Inspection Extremities: - - Atraumatic. Flaccid and easy to passively range throughout. Skin: Normal color, Rash - Dried peeling skin without signs of erythema or infection on both feet. No other rashes. Neurological: Coma - GCS 4. Moaning spontaneously, but does not respond to painful stimulus. No gag reflex., - - NIHSS 29 Diagnostic/Tx/Re-eval Impressions Brain CT 02/26/20 12:06 IMPRESSION: 1. No acute intracranial hemorrhage or mass effect. N.B. : The above information has been verbally conveyed by Wale Mosher MD (Brooks) to Francis Ferrera MD, on 02/26/2020 12:37:21 (ET). Electronically Signed: Wale Mosher MD (Brooks) at 12:39 EDT , Service support , ADDENDUM: 02/26/20 1246 IMPRESSION: 1. No acute intracranial hemorrhage or mass effect. N.B. : The above information has been verbally conveyed by Wale Mosher MD (Brooks) to Francis Ferrera MD, on 02/26/2020 12:37:21 (ET). Electronically Signed: Wale Mosher MD (Brooks) at 12:39 EDT , Service support , Head/Neck CTA 02/26/20 12:07 IMPRESSION: 1. No large vessel occlusion. 2. No hemodynamically significant stenosis of the carotid arteries. No arterial dissection. N.B. : The above information has been verbally conveyed by Wale Mosher MD (Brooks) to Francis Ferrera MD, on 02/26/2020 12:47:49 (ET). Electronically Signed: Wale Mosher MD (Brooks) at 12:50 EDT , Service support , ADDENDUM: 02/26/20 1257 IMPRESSION: 1. No large vessel occlusion. 2. No hemodynamically significant stenosis of the carotid arteries. No arterial dissection. N.B. : The above information has been verbally conveyed by Wale Mosher MD (Brooks) to Francis Ferrera MD, on 02/26/2020 12:47:49 (ET). Electronically Signed: Wale Mosher MD (Brooks) at 12:50 EDT , Service support , 02/26/20 12:06 Brain/Head without Contrast [CT] Stat Chest 1 View [RAD] Stat 02/26/20 12:07 CTA Head AND Neck W/ Contrast [CT] Stat Laboratory Results 02/26/20 02/26/20 02/26/20 12:10 12:10 12:10 WBC 11.7 H RBC 4.43 Hgb 13.6 Hct 41.4 MCV 93.5 MCH 30.7 MCHC 32.9 RDW Std Deviation 49.7 H RDW Coeff of [place] 14.7 H Plt Count 280 MPV 10.0 Immature Gran % (Auto) 1.200 H Neut % (Auto) 84.5 H Lymph % (Auto) 11.3 L [place] % (Auto) 2.7 Eos % (Auto) 0.0 Baso % (Auto) 0.3 Absolute Neuts (auto) 9.9 H Absolute Lymphs (auto) 1.32 Nucleated RBC % 0 PT Cancelled INR Cancelled APTT Cancelled Specimen Type Sample Site pH Bicarbonate Actual Total CO2 Base Excess O2 Saturation O2 % ABG pCO2 ABG pO2 Valentino Test Respiration Rate O2 Delivery Device Vent Mode Tidal Volume POC PEEP Blood Gas Notified Whom Sodium 149 H Potassium 3.2 L Chloride 123 H Carbon Dioxide 16.0 L Anion Gap 10 BUN 12 Creatinine 1.38 H Estim Creat Clear Calc 42.58 Est GFR (MDRD) Af Amer 52 L Est GFR (MDRD) Non-Af 43 L BUN/Creatinine Ratio 8.7 L Glucose 142 H Calcium 8.3 L Troponin I < 0.015 Urine Color Urine Clarity Urine pH Ur Specific [place] Urine Protein Urine Glucose (UA) Urine Ketones Urine Occult Blood Urine Nitrite Urine Bilirubin Urine Urobilinogen Ur Leukocyte Esterase Urine RBC Urine WBC Ur Squamous Epith Cells Urine Bacteria Urine Mucus Urine Opiates Screen Urine Methadone Screen Ur Barbiturates Screen Tricyclics Screen Ur Phencyclidine Scrn Ur Amphetamines Screen U Methamphetamin-MDMA U Benzodiazepines Scrn Urine Cocaine Screen U Cannabinoids Screen Ur Drug Screen Comment Ethyl Alcohol 02/26/20 02/26/20 02/26/20 12:10 12:10 12:10 WBC RBC Hgb Hct MCV MCH MCHC RDW Std Deviation RDW Coeff of [place] Plt Count MPV Immature Gran % (Auto) Neut % (Auto) Lymph % (Auto) [place] % (Auto) Eos % (Auto) Baso % (Auto) Absolute Neuts (auto) Absolute Lymphs (auto) Nucleated RBC % PT INR APTT Specimen Type Sample Site pH Bicarbonate Actual Total CO2 Base Excess O2 Saturation O2 % ABG pCO2 ABG pO2 Valentino Test Respiration Rate O2 Delivery Device Vent Mode Tidal Volume POC PEEP Blood Gas Notified Whom Sodium Potassium Chloride Carbon Dioxide Anion Gap BUN Creatinine Estim Creat Clear Calc Est GFR (MDRD) Af Amer Est GFR (MDRD) Non-Af BUN/Creatinine Ratio Glucose Calcium Troponin I Urine Color Urine Clarity Urine pH Ur Specific [place] Urine Protein Urine Glucose (UA) Urine Ketones Urine Occult Blood Urine Nitrite Urine Bilirubin Urine Urobilinogen Ur Leukocyte Esterase Urine RBC Urine WBC Ur Squamous Epith Cells Urine Bacteria Urine Mucus Urine Opiates Screen NEGATIVE Urine Methadone Screen NEGATIVE Ur Barbiturates Screen NEGATIVE Tricyclics Screen POSITIVE H Ur Phencyclidine Scrn NEGATIVE Ur Amphetamines Screen POSITIVE H U Methamphetamin-MDMA NEGATIVE U Benzodiazepines Scrn NEGATIVE Urine Cocaine Screen POSITIVE H U Cannabinoids Screen NEGATIVE Ur Drug Screen Comment Ethyl Alcohol 52.0 02/26/20 02/26/20 02/26/20 12:10 13:09 13:15 WBC RBC Hgb Hct MCV MCH MCHC RDW Std Deviation RDW Coeff of [place] Plt Count MPV Immature Gran % (Auto) Neut % (Auto) Lymph % (Auto) [place] % (Auto) Eos % (Auto) Baso % (Auto) Absolute Neuts (auto) Absolute Lymphs (auto) Nucleated RBC % PT 13.4 INR 1.1 APTT 23.8 L Specimen Type ART Sample Site R BRACHIAL pH 7.22 L Bicarbonate Actual 14.6 L Total CO2 16 Base Excess -13 L O2 Saturation 97 O2 % 30 ABG pCO2 35.3 ABG pO2 112 H Valentino Test NA Respiration Rate 12 O2 Delivery Device Vent Vent Mode A-C Tidal Volume 450 POC PEEP 3 Blood Gas Notified Whom ED Sodium Potassium Chloride Carbon Dioxide Anion Gap BUN Creatinine Estim Creat Clear Calc Est GFR (MDRD) Af Amer Est GFR (MDRD) Non-Af BUN/Creatinine Ratio Glucose Calcium Troponin I Urine Color Yellow Urine Clarity Sl. Cloudy Urine pH 6.5 Ur Specific [place] 1.010 Urine Protein Negative Urine Glucose (UA) Normal Urine Ketones Negative Urine Occult Blood Negative Urine Nitrite Negative Urine Bilirubin Negative Urine Urobilinogen Normal Ur Leukocyte Esterase Negative Urine RBC 0 SEEN Urine WBC 0 SEEN Ur Squamous Epith Cells 0 SEEN Urine Bacteria 0 SEEN Urine Mucus 0 SEEN Urine Opiates Screen Urine Methadone Screen Ur Barbiturates Screen Tricyclics Screen Ur Phencyclidine Scrn Ur Amphetamines Screen U Methamphetamin-MDMA U Benzodiazepines Scrn Urine Cocaine Screen U Cannabinoids Screen Ur Drug Screen Comment Ethyl Alcohol - Rhythm Strip Rhythm Strip: Sinus Tach Rate: 110 Ectopy: None - EKG Initial EKG Interpretation: No Acute Injury Pattern, Sinus Tachycardia, RBBB, - - Prolonged QTC Prior: Changed - Medical Decision Making Patient was intubated upon initial examination, stroke team was called even though the patient is outside of any TPA window, in order to expedite CT angiography of the head and neck and rule out LVO in this comatose patient. CT angiography was negative throughout, as was the rest of the brain imaging. Therefore, tPA not indicated and pt does not require transfer to [facility] stroke center, since stroke is unlikely the cause of the patient's condition at this time. EKG shows a new right bundle branch block as well as a prolonged QTC, in context of a non-anion gap metabolic acidosis in a patient who takes a tricyclic antidepressant for bipolar disorder. She also is testing positive for cocaine in her urine. The rest of her positive toxicology appears to represent medication she is prescribed and takes. In discussing with the daughter later after the initial evaluation, there is no suspicion for an overdose or cocaine use. She drank some alcohol yesterday, there is still some in her blood, she states she did not drink heavily and is not an alcoholic. She states she has been feeling well and there would be no reason that she can think of for the patient to have overdosed. Urinalysis is normal. The patient has remained unresponsive on the ventilator, without sedation. She has a GCS of 3T. I discussed all this with Dr. Morfin, nuisance wildlife trapper on-call. He agrees with treating the patient with a bicarb drip empirically and running other tests, including volatile alcohols, which is ordered. Much of that is a send out, including the isopropanol, but a serum osmolality is sent and that will come back today. Understanding that the treatment for methanol and ethylene glycol is dialysis, I am okay with those being sent out because she does not have an elevated anion gap and I think even given the history that the chances of these being present and significant levels and the patient needing dialysis is extremely low. If this is a metabolic cause of her coma, which I suspect it is, due to exogenous chemicals, supporting the patient and giving her time to metabolize should allow her condition to improve/resolve. Plan is for ICU admission as above. Of note, nursing was unable to pass an OG tube blindly, causing some minor traumatic bleeding in the process. I attempted to pass it using laryngoscopy blade, it was able to pass it so far but it seems to get hung up, and according to the x-ray it appears to be getting hung up at the GE junction. At this time we are not placing it on suction, and I will leave it there for someone else possibly to try in the ICU, unless it is requested that I remove it. - Critical Care Time Critical care time (excluding procedures): 30-74 minutes, Including time spent:, Discussing w/Consultants, Arranging Admission or Transfer, Performing Direct Patient Care at Bedside, - - Does not include procedure time. Procedures Procedure(s): Rapid sequence intubation: Upon initial evaluation, since the patient had no gag reflex and was completely unresponsive, she was intubated at that time. Pretreated with etomidate 20 mg and rocuronium 100 mg, and her dentures were removed. Direct laryngoscopy was used with a curved blade #3, there was a small amount of thick white mucus in the posterior oropharynx/glottis that was suctioned, and no signs of trauma or foreign body. I passed a 7.5 [place] ETT through the cords which I visualized, placing at 21 cm at the lip, equal breath sounds were heard bilaterally nothing over the epigastrium. Good color change on CO2 cap. Placement confirmed by chest x-ray. ED Disposition - Plan for ED Patient: Disposition: [facility] Diagnosis: Coma, Metabolic acidosis
[2020-02-26 12:19] LABS: Bacteria 0 SEEN /hpf (None Seen); Mucous, Urine 0 SEEN /hpf (<or=2+); Red Blood Cells-Urine 0 SEEN /hpf (0-5); Squamous Epithelial Cells - UA 0 SEEN /hpf (5-10); White Blood Cells 0 SEEN /hpf (0-5)
[2020-02-26 12:23] LABS: Absolute Lymphocyte Count 1.32 X10^3/uL (0.83-4.51); Absolute Neutrophil Count 9.9 X10^3/uL (2.0-7.7); Basophil# 0.04 X10^3/uL; Basophil% 0.3 % (0-1); Hematocrit 41.4 % (37-47); Hemoglobin 13.6 g/dL (12.0-15.0); Lymphocyte # 1.32 X10^3/ul (4.0); Lymphocyte % 11.3 % (19-41); Mean Corp Hgb Conc 32.9 g/dL (32-36); Mean Corpuscular Hgb 30.7 pg (27.0-32.0); Mean Corpuscular Volume 93.5 fL (81-99); Monocyte# 0.32 X10^3/uL; Monocyte% 2.7 % (0-10); NRBC Flagged by Analyzer 0 % (0-5); Neutrophil # 9.85 X10^3/uL (2.7-7.7); Neutrophil % 84.5 % (47-70); Platelet Count 280 K/mm3 (150-450); RBC Distribution Width CV 14.7 % (11.6-14.6); RBC Distribution Width SD 49.7 fl (35.1-43.9); Red Blood Count 4.43 M/mm3 (4.2-5.4); White Blood Count 11.7 K/mm3 (4.4-11.0)
[2020-02-26 12:25] LABS: Color, Urine Yellow (Yellow); Glucose, Dipstick Normal (Normal); Ketone-Dipstick Negative (Negative); Leukocyte Esterase-Dipstick Negative /ul (Negative); Nitrite-Dipstick Negative (Negative); Occult Blood-Urine Negative /ul (Negative); Protein-Dipstick Negative (Negative); Urine Bilirubin Dipstick Negative (Negative); Urine Clarity Sl. Cloudy (Clear); Urine Urobilinogen Normal (Normal); Urine pH 6.5 (5.0 - 8.0)
--- NOTE | 2020-02-26 12:28 | NURSING ---
REDRAW FOR A BLUE TOP PER LAB
[2020-02-26 12:37] LABS: TCA Internal Control -Neg LINE = VALID (- VALID)
[2020-02-26 12:38] LABS: TCA Urine Drug Screen POSITIVE (<1000 ng/mL)
[2020-02-26 12:41] LABS: Amphetamine Urine VISTA POSITIVE (<1000 ng/mL); Barbiturate Urine VISTA NEGATIVE (< 200 ng/mL); Benzodiazepine Urine VISTA NEGATIVE (< 200 ng/mL); Cocaine Urine VISTA POSITIVE (< 300 ng/mL); Ecstacy Urine VISTA NEGATIVE (< 500 ng/mL); Methadone Urine VISTA NEGATIVE (< 300 ng/mL); PCP Urine VISTA NEGATIVE (< 25 ng/mL); THC Urine VISTA NEGATIVE (< 50 ng/mL); Vista UDS pH Range 6
[2020-02-26 12:43] LABS: Anion Gap 10 (5-15); BUN 12 mg/dL (7-18); BUN/Creat Ratio 8.7 RATIO (10-20); Calcium,Total 8.3 mg/dL (8.5-10.1); Chloride 123 mmol/L (98-107); Creatinine, Serum 1.38 mg/dL (0.55-1.02); EST Glomerular Filtration Rate 43 mL/min (>60); Est Glom Filt Rate - Afr Amer 52 mL/min (>60); Estimated Creatinine Clearance 42.58 ml/min; Glucose 142 mg/dL (74-106); Potassium 3.2 mmol/L (3.5-5.1); Sodium Level 149 mmol/L (136-145)
--- NOTE | 2020-02-26 12:45 | ED.RN ---
UNABLE TO PERFORM NIH, PT INTUBATED.
[2020-02-26 13:26] LABS: Base Excess -13 mmol/L (-2 to +2); Bicarbonate 14.6 mmol/L (22-26); Blood Gas Specimen Type ART; FI02 30; Mode A-C; O2 Delivery Device Vent; PEEP 3; PO2 112 mmHG (75-100); RR 12; SITE R BRACHIAL; Total Carbon Dioxide 16 mmol/L; Vt 450; pCO2 35.3 mmHg (35-45); pH 7.22 (7.35-7.45)
[2020-02-26 13:27] LABS: SO2 97 % (95-99)
[2020-02-26 13:29] LABS: International Normalized Ratio 1.1; Prothrombin Time (Protime)PT. 13.4 SECONDS (11.7-14.9)
[2020-02-26 13:30] LABS: Partial Thromboplast Time 23.8 Seconds (24.1-36.2)
--- NOTE | 2020-02-26 14:07 | NURSING ---
DR ALEGRIA FOR DR VIRGEN
[2020-02-26 14:20] LABS: Lactic Acid 2.7 mmol/L (0.4-1.9)
--- NOTE | 2020-02-26 14:20 | NURSING ---
[facility] 201 ALTERED MENTAL STATUS PAINTSIL
[2020-02-26 14:28] LABS: AST(SGOT) 52 U/L (15-37); Alanine Aminotransfer ALT/SGPT 53 U/L (13-56); Albumin, Serum 3.4 g/dL (3.2-5.0); Alkaline Phosphatase 157 U/L (45-117); Bilirubin, Direct 0.08 mg/dL (0.00-0.30); Globulin 3.6 g/dL (2.2-4.2)
[2020-02-26 14:29] LABS: Acetaminophen (Tylenol) Level < 2.0 ug/mL (10.0-30.0)
[2020-02-26 14:32] LABS: Magnesium 2.1 mg/dL (1.6-2.6); Phosphorus 1.1 mg/dL (2.5-4.9); Thyroid Stim Hormone (TSH) 1.67 uIU/mL (0.358-3.74)
--- NOTE | 2020-02-26 14:35 | ED.RN ---
NG/OG INSERTION ATTEMPTED ORALLY BY RITCHIE KOROMA IMMEDIATELY FOLLOWING INTUBATION. THE TUBE WAS DIFFICULT TO ADVANCE AND PLACEMENT COULD NOT BE VERIFIED. TUBE WAS REMOVED, AND PLACEMENT WAS ATTEMPTED NASALLY. ADVANCEMENT OF TUBE WAS DIFFICULT AND COULD NOT BE VERIFIED. RITCHIE WIGGINS ATTEMPTED NASAL INSERTION. AGAIN, TUBE WAS DIFFICULT TO ADVANCE AND PLACEMENT COULD NOT BE VERIFIED. PHYSICIAN NOTIFIED. PHYSICIAN ATTEMPTED ORAL INSERTION WITH GLIDE SCOPE BLADE AND WAS ALSO UNABLE TO ADVANCE TUBE. XRAY VERIFICATION WAS ORDERED AND PLACEMENT WAS NOT IN PROPER POSITION. TUBE WAS NOT HOOKED UP TO SUCTION, ADMITTING PHYSICIAN WAS NOTIFIED OF PLACEMENT. WILL MONITOR AND PLACEMENT WILL BE ADDRESSED UPON ADMISSION.
--- NOTE | 2020-02-26 14:43 | HP.PCM_ITS ---
<Yair Jacinto - Last Filed: 02/26/20 14:43> Problem List (1) Encephalopathy acute Status: Acute (2) Metabolic acidosis Status: Acute (3) Anxiety and depression Status: Chronic (4) HTN (hypertension) Status: Chronic Qualifiers: Hypertension type: essential hypertension Qualified Code(s): I10 - Essential (primary) hypertension (5) Bipolar 1 disorder Status: Acute History of Present Illness Date of Admission: 02/26/20 Chief Complaint: unresponsive The patient is a 49 year old F with pmhx of bipolar disorder, TIA, who presnted to the ER unresponsive. She was found by her daughters at home in bed u nresponsive and groaning. She was brought to the ER and subsequently intubated and placed on a ventilator. She remains unresponsive. She was found to have relatively full pill bottles. Her family witnessed her drinking heavily an unsepecified number of beers last night. They do not think she uses recreational drugs at all however she tested positive for cocaine. [] Past Medical History Past Medical History (Chronic Problems): Chronic Problems Anxiety and depression (Chronic) Chronic back pain (Chronic) HTN (hypertension) (Chronic) Allergies tramadol Allergy (Verified 02/26/20 14:01) Hives Home Medications: Ambulatory Orders Medication Instructions Recorded Amantadine [Symmetrel] 100 mg PO DAILY 09/28/18 Amantadine [Symmetrel] 200 mg PO QHS 09/28/18 Aripiprazole [Abilify] 10 mg PO DAILY 09/28/18 Dextroamphetamine/Amphetamine 30 mg PO DAILY 09/28/18 [Adderall 20 mg Tablet] Lorazepam [Ativan] 1 mg PO DAILY PRN PRN 09/28/18 Amitriptyline HCl [Elavil] 100 mg PO QHS 02/26/20 Gabapentin [Neurontin] 600 mg PO BIDCM 02/26/20 Surgical History: - - Spinal cord stimulator placement, neck surgery x3, lumbar back surgery x3, appendectomy, hysterectomy. Psychiatric History: Anxiety, Attn. 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 Review of Systems Neurological: Reports: - - unresponsive Unable to obtain accurate/complete ROS d/t: GCS 3 VTE Information - Inpt Only VTE Present on Admission: No VTE Mechan Device Prophylaxis: None VTE Pharm Prophylaxis ordered?: Yes Patient Problems: Active and Suspected Problems Coma (Acute) Metabolic acidosis (Acute) Encephalopathy acute (Acute) Bipolar 1 disorder (Acute) - Physical Exam Vitals/I&O's: Vital Signs Temp Pulse Resp BP Pulse Ox 97.6 F L 101 H 15 146/110 H 98 02/26/20 14:32 02/26/20 14:32 02/26/20 14:32 02/26/20 14:32 02/26/20 14:32 Oxygen Delivery Method Mechanical Ventilator Weight: 172 lb 6.424 oz Body Mass Index (BMI) 29.5 Finger Stick Blood Glucose 158 Intake and Output for Last 24 Hours 02/24/20 02/25/20 02/26/20 23:59 23:59 23:59 Intake Total 500 / 500 Balance 500 / 500 General: Alert, Oriented x3, Cooperative HEENT: Atraumatic, - - pupils nonreactive Neck: Supple, No Nodes, No Nuchal Rigidity Lungs: Clear to auscultation, Diminished Cardiovascular: Regular rate, No murmurs, Tachycardic Abdomen: Bowel Sounds Present, Soft, Non Tender Extremities: No edema, Capillary Refill Less than 3 Seconds Skin: No rashes, No breakdown, - - erythema and defoliation on bottoms of feet Musculoskeletal: No Tenderness to Palpation of Joints or Extremities Neurological: - - no clonus, hyporeflexive Psych/Mental Status: - - coma Laboratory Results 02/26/20 12:00: Phosphorus 1.1 L*, Magnesium 2.1, TSH 1.67 02/26/20 12:00: Serum Osmolality Cancelled 02/26/20 12:00: Acetaminophen < 2.0 L 02/26/20 12:00: Total Bilirubin 0.20, Direct Bilirubin 0.08, AST 52 H, ALT 53, Alkaline Phosphatase 157 H, Total Protein 7.0, Albumin 3.4, Globulin 3.6 02/26/20 12:00: Miscellaneous Test Pending 02/26/20 12:10: WBC 11.7 H, RBC 4.43, Hgb 13.6, Hct 41.4, MCV 93.5, MCH 30.7, MCHC 32.9, RDW Std Deviation 49.7 H, RDW Coeff of [place] 14.7 H, Plt Count 280, MPV 10.0, Immature Gran % (Auto) 1.200 H, Neut % (Auto) 84.5 H, Lymph % (Auto) 11.3 L, [place] % (Auto) 2.7, Eos % (Auto) 0.0, Baso % (Auto) 0.3, Absolute Neuts (auto) 9.9 H, Absolute Lymphs (auto) 1.32, Nucleated RBC % 0 02/26/20 12:10: PT Cancelled, INR Cancelled, APTT Cancelled 02/26/20 12:10: Sodium 149 H, Potassium 3.2 L, Chloride 123 H, Carbon Dioxide 16.0 L, Anion Gap 10, BUN 12, Creatinine 1.38 H, Estim Creat Clear Calc 42.58, Est GFR (MDRD) Af Amer 52 L, Est GFR (MDRD) Non-Af 43 L, BUN/Creatinine Ratio 8.7 L, Glucose 142 H, Calcium 8.3 L, Troponin I < 0.015 02/26/20 12:10: Urine Opiates Screen NEGATIVE, Urine Methadone Screen NEGATIVE, Ur Barbiturates Screen NEGATIVE, Ur Phencyclidine Scrn NEGATIVE, Ur Amphetamines Screen POSITIVE H, U Methamphetamin-MDMA NEGATIVE, U Benzodiazepines Scrn NEGATIVE, Urine Cocaine Screen POSITIVE H, U Cannabinoids Screen NEGATIVE, Ur Drug Screen Comment 02/26/20 12:10: Ethyl Alcohol 52.0 02/26/20 12:10: Tricyclics Screen POSITIVE H, Ur Drug Screen Comment 02/26/20 12:10: Urine Color Yellow, Urine Clarity Sl. Cloudy, Urine pH 6.5, Ur Specific [place] 1.010, Urine Protein Negative, Urine Glucose (UA) Normal, Urine Ketones Negative, Urine Occult Blood Negative, Urine Nitrite Negative, Urine Bilirubin Negative, Urine Urobilinogen Normal, Ur Leukocyte Esterase Negative, Urine RBC 0 SEEN, Urine WBC 0 SEEN, Ur Squamous Epith Cells 0 SEEN, Urine Bacte marck 0 SEEN, Urine Mucus 0 SEEN 02/26/20 13:09: Specimen Type ART, Sample Site R BRACHIAL, pH 7.22 L, Bicarbonate Actual 14.6 L, Total CO2 16, Base Excess -13 L, O2 Saturation 97, O2 % 30, ABG pCO2 35.3, ABG pO2 112 H, Valentino Test NA, Respiration Rate 12, O2 Delivery Device Vent, Vent Mode A-C, Tidal Volume 450, POC PEEP 3, Blood Gas Notified Whom ED 02/26/20 13:15: PT 13.4, INR 1.1, APTT 23.8 L 02/26/20 13:45: Lactic Acid 2.7 H* 02/26/20 13:45: Methyl Alcohol, Quant Cancelled Current Medications Sodium Chloride () 500 mls @ 999 mls/hr IV .Q31M ONE Last Infusion: 02/26/20 12:55 Dose: Infused Documented by: Sodium Bicarbonate 150 meq/ (Sodium Chloride) 1,150 mls @ 150 mls/hr IV .Q7H40M JULIUS Last Admin: 02/26/20 13:56 Dose: 150 mls/hr Documented by: Labetalol HCl (Trandate) 20 mg IV X1 PRN PRN Reason: Blood Pressure Assessment/Plan All Active Problems GARCIA (acute kidney injury) (Acute) Hypokalemia (Acute) Coma (Acute) Metabolic acidosis (Acute) Encephalopathy acute (Acute) Bipolar 1 disorder (Acute) 1. Acute encephalopathy toxic vs metabolic - normal anion gap acidosis with lactic acidosis, ABG pH 7.22, hypernatremia, hyperchloremia, hypokalemia, decreased co2. -Heavy alcohol use last night. -tox + for cocaine, rest are likely false positives from home meds -CT brain is negative. CTA head and neck negative. -mild leukocytosis, however ua negative, cxr not suggestive of infection -mag ok, phos markedly low -bicarb drip started, start K phos -Serum etoh level 52 -concern for seizure : heavy drinking last night with multiple seizure threshold lowering agents. stat EEG requested -Hx TIAs - obtain MRI brain -SOC neuro consut -Creatinine elevated but nos significantly more than prior - pt with CKDIII -Sinus tach on monitor and EKG, no ischemic changes, trop neg. -mild elevation in AST/AlkPhos, normal bili/ALT -Acetaminophen negative -check CPK -check serum osmolal, isopropanol level, methanol level 2. Acute respiratory failure 2/2 above- intubated and on vent in ER, continuity reader consul 3. CKDIII - recheck BMP tonight. does not appear significantly above baseline 4. Bipolar disorder - abilify, elavil, ativan -doubt serotonin syndrome as no fever, no clonus, no hyperreflexia 5. Chronic back pain - abilify/mirian - hold. 6. ADHD - hold adderall DVT ppx: lovenox This patient was seen by Yair Jacinto PA-C under the supervision of Doctor June]. <Christel Watkins - Last Filed: 02/26/20 15:33> History of Present Illness The patient is a 49 year old F [] Past Medical History Allergies tramadol Allergy (Verified 02/26/20 14:01) Hives - Physical Exam Vitals/I&O's: Vital Signs Temp Pulse Resp BP Pulse Ox 97.6 F L 102 H 15 151/106 H 99 02/26/20 14:32 02/26/20 15:06 02/26/20 15:06 02/26/20 15:06 02/26/20 15:06 Oxygen Delivery Method Mechanical Ventilator Weight: 78.2 kg Body Mass Index (BMI) 29.5 Finger Stick Blood Glucose 158 Intake and Output for Last 24 Hours 02/24/20 02/25/20 02/26/20 23:59 23:59 23:59 Intake Total 500 / 500 Balance 500 / 500 Laboratory Results 02/26/20 12:00: Phosphorus 1.1 L*, Magnesium 2.1, TSH 1.67 02/26/20 12:00: Serum Osmolality Cancelled 02/26/20 12:00: Acetaminophen < 2.0 L 02/26/20 12:00: Total Bilirubin 0.20, Direct Bilirubin 0.08, AST 52 H, ALT 53, Alkaline Phosphatase 157 H, Total Protein 7.0, Albumin 3.4, Globulin 3.6 02/26/20 12:00: Miscellaneous Test Pending 02/26/20 12:10: WBC 11.7 H, RBC 4.43, Hgb 13.6, Hct 41.4, MCV 93.5, MCH 30.7, MCHC 32.9, RDW Std Deviation 49.7 H, RDW Coeff of [place] 14.7 H, Plt Count 280, MPV 10.0, Immature Gran % (Auto) 1.200 H, Neut % (Auto) 84.5 H, Lymph % (Auto) 11.3 L, [place] % (Auto) 2.7, Eos % (Auto) 0.0, Baso % (Auto) 0.3, Absolute Neuts (auto) 9.9 H, Absolute Lymphs (auto) 1.32, Nucleated RBC % 0 02/26/20 12:10: PT Cancelled, INR Cancelled, APTT Cancelled 02/26/20 12:10: Sodium 149 H, Potassium 3.2 L, Chloride 123 H, Carbon Dioxide 16.0 L, Anion Gap 10, BUN 12, Creatinine 1.38 H, Estim Creat Clear Calc 42.58, Est GFR (MDRD) Af Amer 52 L, Est GFR (MDRD) Non-Af 43 L, BUN/Creatinine Ratio 8.7 L, Glucose 142 H, Calcium 8.3 L, Troponin I < 0.015 02/26/20 12:10: Urine Opiates Screen NEGATIVE, Urine Methadone Screen NEGATIVE, Ur Barbiturates Screen NEGATIVE, Ur Phencyclidine Scrn NEGATIVE, Ur Amphetamines Screen POSITIVE H, U Methamphetamin-MDMA NEGATIVE, U Benzodiazepines Scrn NEGATIVE, Urine Cocaine Screen POSITIVE H, U Cannabinoids Screen NEGATIVE, Ur Drug Screen Comment 02/26/20 12:10: Ethyl Alcohol 52.0 02/26/20 12:10: Tricyclics Screen POSITIVE H, Ur Drug Screen Comment 02/26/20 12:10: Urine Color Yellow, Urine Clarity Sl. Cloudy, Urine pH 6.5, Ur Specific [place] 1.010, Urine Protein Negative, Urine Glucose (UA) Normal, Urine Ketones Negative, Urine Occult Blood Negative, Urine Nitrite Negative, Urine Bilirubin Negative, Urine Urobilinogen Normal, Ur Leukocyte Esterase Negative, Urine RBC 0 SEEN, Urine WBC 0 SEEN, Ur Squamous Epith Cells 0 SEEN, Urine Bacteria 0 SEEN, Urine Mucus 0 SEEN 02/26/20 13:09: Specimen Type ART, Sample Site R BRACHIAL, pH 7.22 L, Bicarbonate Actual 14.6 L, Total CO2 16, Base Excess -13 L, O2 Saturation 97, O2 % 30, ABG pCO2 35.3, ABG pO2 112 H, Valentino Test NA, Respiration Rate 12, O2 Delivery Device Vent, Vent Mode A-C, Tidal Volume 450, POC PEEP 3, Blood Gas Notified Whom ED MD 02/26/20 13:15: PT 13.4, INR 1.1, APTT 23.8 L 02/26/20 13:45: Lactic Acid 2.7 H* 02/26/20 13:45: Methyl Alcohol, Quant Cancelled Current Medications Sodium Chloride () 500 mls @ 999 mls/hr IV .Q31M ONE Last Infusion: 02/26/20 12:55 Dose: Infused Documented by: Sodium Bicarbonate 150 meq/ (Sodium Chloride) 1,150 mls @ 150 mls/hr IV .Q7H40M JULIUS Last Admin: 02/26/20 13:56 Dose: 150 mls/hr Documented by: Labetalol HCl (Trandate) 20 mg IV X1 PRN PRN Reason: Blood Pressure Assessment/Plan This patient was seen in conjunction with STEPHON Allison. I have independently interviewed and examined the patient and reviewed pertinent historical, laboratory, and other data. Please refer to STEPHON Allison note for his patient's presentation, findings, and recommendations. I have reviewed and his note and concur with his documentation History was taken from the patient's daughter. Patient is intubated. 49-year-old female with past medical history of depression/anxiety, resident in [place] who is in [facility] to attend a alliance party for her knees. Patient had quite an amount of alcohol yesterday, she had an argument with her daughter. Her daughter last saw her take his regular antidepressants. Patient reportedly went to bed around midnight. She is on sure if she overdosed on. Patient was found on the floor around 10:45 AM, unresponsive. They try to wake her up but she would been weak. She called the EMS. There is no history of such an event. She denies patient being unwell. She has been following up with dermatology for a rash on the sole of the foot and the palms. Patient was found to be unresponsive by the EMS around 12 noon. Her blood sugar was 120. Naloxone was given without any effect. Patient on presentation to the ED was found to be obtunded, occasionally moaning, occasionally moving her extremities, pupils 3 mm, nonresponsive to light. GCS reportedly 4. Patient was subsequently intubated. Vitals are stable except for mild hypertension and tachycardia. No fevers. BC count is 11.7, Hb 13.6, platelet count 280, INR 1.1, ABG showed pH of 7.22, PCO2 was 35.3, bicarb was 16. Patient was 149, potassium 3.2, chloride 123, bicarbonate 16, BUN 12, creatinine 1.38, lactic acid 2.7, phosphorus 1.1, magnesium 2.1, AST 52, ALT 53, AL P1 57 CTA of the head and neck was without any large vessel occlusion. Physical Exam: Gen: Intubated, on mechanical ventilator, not on sedatives, not pale, not jaundiced CVS:HS I +II, regular, no murmurs RESP: Diminished at lung bases GI: BS present and normal, soft, nontender, no palpable organs EXT:No edema Skin: Erythematous plaque, scaly, on the soles of her feet as well as the palms. ASSESSMENT: 1. Acute respiratory failure 2. Acute metabolic/toxic encephalopathy 3. Severe hypophosphatemia 4. Lactic acidosis 5. Hypokalemia 6. Hyponatremia 7. CKD stage III 8. Bipolar disorder/ADHD/chronic back pain Plan: Admit to ICU Cyber Security Specialist consult, continue on ventilatory settings -not on sedatives Repeat BMP stat Continue on IV bicarb for now Replace phosphorus and potassium Stat EEG Telemetry neurology consult Inpatient E&M: 18548 Init Hosp L3
--- NOTE | 2020-02-26 16:17 | TELEMED_ITS ---
[facility] Telemed has confirmed receipt of a request for visit. This document confirms receipt of the order initiating the consult. To find the results of the consultation, please view the patient's reports for the scanned Telemed Consult.
[2020-02-26] MEDS: Heparin Injection (Vial) 5,000 UNIT/ML VIAL 5000 UNIT SC ×2 (17:06→21:30)
[2020-02-26 17:27] LABS: Anion Gap 10 (5-15); BUN 12 mg/dL (7-18); BUN/Creat Ratio 9.4 RATIO (10-20); Chloride 122 mmol/L (98-107); Creatinine, Serum 1.27 mg/dL (0.55-1.02); EST Glomerular Filtration Rate 47 mL/min (>60); Est Glom Filt Rate - Afr Amer 57 mL/min (>60); Estimated Creatinine Clearance 50.16 ml/min; Glucose 143 mg/dL (74-106); Potassium 4.1 mmol/L (3.5-5.1); Sodium Level 149 mmol/L (136-145)
[2020-02-26 17:46] LABS: CPK Total, Creatine Kinase 3626 U/L (26-192)
[2020-02-26 17:49] LABS: Reflex Lactate? Y
[2020-02-26] MEDS: Propofol 10MG/Ml 1,000 MG/100 ML Bottle 4.2 MG CONT INF (20:54)
[2020-02-26] MEDS: LORazepam 2 MG/ML Syringe IV (21:29)
[2020-02-26] MEDS: 0.9% Saline Lock 10 ML Syringe IV (21:31)
[2020-02-26 21:45] LABS: CPK Total, Creatine Kinase 3607 U/L (26-192); Triglycerides 119 mg/dL
[2020-02-26] MEDS: Chlorhexidine 15 ML PO (22:50)
--- NOTE | 2020-02-26 23:16 | NURSING ---
2120- right foot tense with toes fanning up and out and bilateral arms tense/posturing for approx 30 seconds with left leg continually twitching 2124- MD aware, orders received
[2020-02-27] VITALS (27 sets, daily range): BP systolic 96–193; BP diastolic 67–117; PULSE 94–122; RESP 12–32; TEMP 37.9–39.3; O2SAT 93–100
--- NOTE | 2020-02-27 00:50 | RAD_ITS ---
STUDY: X-RAY CHEST REASON FOR EXAM: Female, 49 years old patient with change in clinical condition. TECHNIQUE: Single AP portable view of the chest. COMPARISON: 02/26/2020. FINDINGS: Tip of endotracheal tube is at the medial clavicles. Cardiac monitoring leads are present. Neurostimulator leads appear to be within the lower thoracic spinal canal. The lungs are clear and expanded. There is no demonstrated pleural abnormality. Normal size heart. Normal mediastinum and andres. Normal visualized pulmonary arteries. There is atherosclerotic tortuosity of the aortic arch and descending thoracic aorta. Normal visualized thoracic spine. Normal visualized ribs, clavicles, and shoulders. There is no demonstrated abnormality of the visualized soft tissue structures of the upper abdomen. RAD/Chest 1 View (Portable) IMPRESSION: No radiographic evidence of acute cardiopulmonary disease. Electronically Signed: Jany Rodriguez MD at 1:28 EDT , Service support ,
[2020-02-27 01:09] LABS: Bacteria 0 SEEN /hpf (None Seen); Mucous, Urine 0 SEEN /hpf (<or=2+); Red Blood Cells-Urine 0 SEEN /hpf (0-5); Squamous Epithelial Cells - UA 0 SEEN /hpf (5-10); White Blood Cells 0 SEEN /hpf (0-5)
[2020-02-27 01:16] LABS: Color, Urine Straw (Yellow); Glucose, Dipstick Normal (Normal); Ketone-Dipstick Negative (Negative); Leukocyte Esterase-Dipstick Negative /ul (Negative); Nitrite-Dipstick Negative (Negative); Occult Blood-Urine 25 /ul (Negative); Protein-Dipstick Negative (Negative); Urine Bilirubin Dipstick Negative (Negative); Urine Clarity Clear (Clear); Urine Urobilinogen Normal (Normal)
[2020-02-27] MEDS: Acetaminophen 650 MG Suppository RECTAL (01:54)
[2020-02-27] MEDS: Ceftriaxone 1 GM/50 ML BAG IV (02:02)
[2020-02-27] MEDS: 0.9% Saline Lock 10 ML Syringe IV ×2 (02:27→11:51)
[2020-02-27] MEDS: Labetalol (Prefilled) 20 MG/4 ML 10 MG IV (02:27)
--- NOTE | 2020-02-27 03:05 | PCM.PN.BLA ---
Progress Note Patient with rising temperature 101.0 to 102.7F Respiratory rate more than 90 white count of 11.7. Patient meets SIRS criteria. However there is no definite source of infection. Urine culture and blood culture ordered. Lineman Service Or Work Dispatcher ordered ceftriaxone and azithromycin. Stat Chest x-ray is unremarkable. Patient with elevated blood pressure with systolic blood pressure in the 180s. Patient was assessed at bedside. Patient is sedated and on mechanical ventilation. Heart sounds S1-S2 present Pupils equal and react to light. Gag reflex present. Abdomen soft nondistended bowel sounds present. Extremities no edema Impression anoxic brain injury likely causing SIRS criteria Hyponatremia Azithromycin continued. Change ceftriaxone to Zosyn On D5W; and sodium bicarbonate in normal saline. Will give LR 500 MLS per hour for a total of 2100 MLS. Change IV fluids to bicarbonate in D5W and to go at 100 MLS per hour. Labetalol IVP X1 given CBC and BMP already ordered for a.m. Lactic increased to 4; trend STROKE Vital Signs/Narrative: Vital Signs Temp Pulse Resp BP BP Pulse Ox 02/27/20 03:00 102.7 F H 96 14 96/67 98 02/27/20 02:50 102.6 F H 96 17 108/79 99 02/27/20 02:35 102.4 F H 94 14 122/84 H 98 02/27/20 02:30 102.3 F H 94 14 166/92 H 97 02/27/20 02:00 102.4 F H 121 H 25 H 188/106 H 100 02/27/20 01:00 101.7 F H 122 H 24 H 193/111 H 100 02/27/20 00:00 101.0 F H 114 H 19 H 166/117 H 100 02/26/20 23:42 113 H
[2020-02-27] MEDS: Lactated Ringers 1,000 ML 500 ML IV ×2 (03:21→05:28)
[2020-02-27 05:01] LABS: Reflex Lactate? Y
[2020-02-27 05:18] LABS: Absolute Lymphocyte Count 1.35 X10^3/uL (0.83-4.51); Absolute Neutrophil Count 13.5 X10^3/uL (2.0-7.7); Basophil# 0.01 X10^3/uL; Basophil% 0.1 % (0-1); Hematocrit 33.2 % (37-47); Hemoglobin 10.7 g/dL (12.0-15.0); Lymphocyte # 1.35 X10^3/ul (4.0); Lymphocyte % 8.4 % (19-41); Mean Corp Hgb Conc 32.2 g/dL (32-36); Mean Corpuscular Hgb 30.7 pg (27.0-32.0); Mean Corpuscular Volume 95.1 fL (81-99); Mean Platelet Vol. 9.9 fl (6.2-12.0); Monocyte# 1.19 X10^3/uL; Monocyte% 7.4 % (0-10); NRBC Flagged by Analyzer 0 % (0-5); Neutrophil # 13.49 X10^3/uL (2.7-7.7); Neutrophil % 83.7 % (47-70); Platelet Count 211 K/mm3 (150-450); RBC Distribution Width CV 15.5 % (11.6-14.6); RBC Distribution Width SD 53.3 fl (35.1-43.9); Red Blood Count 3.49 M/mm3 (4.2-5.4); White Blood Count 16.1 K/mm3 (4.4-11.0)
[2020-02-27] MEDS: Heparin Injection (Vial) 5,000 UNIT/ML VIAL 5000 UNIT SC ×2 (05:34→13:43)
[2020-02-27 06:04] LABS: ALB/GLOB Ratio 0.8 RATIO (0.9-2.4); AST(SGOT) 53 U/L (15-37); Alanine Aminotransfer ALT/SGPT 39 U/L (13-56); Albumin, Serum 1.9 g/dL (3.2-5.0); Alkaline Phosphatase 99 U/L (45-117); Anion Gap 8 (5-15); BUN 8 mg/dL (7-18); BUN/Creat Ratio 8.7 RATIO (10-20); Calcium,Total 5.8 mg/dL (8.5-10.1); Chloride 117 mmol/L (98-107); Creatinine, Serum 0.92 mg/dL (0.55-1.02); EST Glomerular Filtration Rate 69 mL/min (>60); Est Glom Filt Rate - Afr Amer 83 mL/min (>60); Estimated Creatinine Clearance 69.25 ml/min; Globulin 2.4 g/dL (2.2-4.2); Glucose 130 mg/dL (74-106); Lactic Acid 5.8 mmol/L (0.4-1.9); Magnesium 1.3 mg/dL (1.6-2.6); Potassium 2.8 mmol/L (3.5-5.1); Protein, Total 4.3 g/dL (6.4-8.2); Sodium Level 148 mmol/L (136-145)
--- NOTE | 2020-02-27 06:06 | CON.PCM_ITS ---
Reason for Consult Date of Consultation: 02/27/20 Reason for Consultation: Encephalopathy/acute respiratory failure History of Present Illness: The patient is a 49-year-old female, with a history as outlined below, who presented to the emergency department on February 25 after being found unresp onsive by family members. History pertinent to the patient's hospitalization was obtained primarily via chart review, as the patient is currently intubated and there is no family available at the bedside. The patient does apparently have a history of polysubstance abuse. On presentation to the emergency department, the patient was noted to be hypothermic, tachycardic and tachypneic. Initial laboratory evaluation revealed an elevated white blood cell count to 12,000. INR was noted to be 1.1. Chemistry profile was notable for a sodium of 149, potassium of 3.2, chloride of 123, bicarbonate of 16 and creatinine of 1.38. Lactate was elevated at 2.7. Phosphorus was low at 1.1. CK was elevated at 3607. Troponin was negative. TSH was within normal limits. Urinalysis was unremarkable. Toxicology screen was positive for tricyclics, amphetamines, and cocaine. Alcohol level was 52. CT head was unremarkable. CTA head and neck showed no large vessel occlusion. Neurology consultation was obtained, with concerns for potential anoxic brain injury. EEG and MRI were recommended. Overnight, the patient did spike a fever to 102.7 ?F. She also appears to have been started on bicarbonate containing fluids and antimicrobials. She apparently demonstrated seizure-like activity overnight, which required administration of benzodiazepines. The patient is currently documented to be overall net +4 L for the hospital admission. Past Medical History Past Medical History (Chronic Problems): Chronic Problems Anxiety and depression (Chronic) Chronic back pain (Chronic) HTN (hypertension) (Chronic) Bipolar 1 disorder (Chronic) Allergies tramadol Allergy (Verified 02/26/20 14:01) Hives Home Medications: Ambulatory Orders Medication Instructions Recorded Amantadine [Symmetrel] 100 mg PO DAILY 09/28/18 Amantadine [Symmetrel] 200 mg PO QHS 09/28/18 Aripiprazole [Abilify] 10 mg PO DAILY 09/28/18 Dextroamphetamine/Amphetamine 30 mg PO DAILY 09/28/18 [Adderall 20 mg Tablet] Lorazepam [Ativan] 1 mg PO DAILY PRN PRN 09/28/18 Amitriptyline HCl [Elavil] 100 mg PO QHS 02/26/20 Gabapentin [Neurontin] 600 mg PO BIDCM 02/26/20 Surgical History: - - Spinal cord stimulator placement, neck surgery x3, lumbar back surgery x3, appendectomy, hysterectomy. Psychiatric History: Anxiety, Attn. 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 Review of Systems Unable to obtain accurate/complete ROS d/t: Due to current intubation and mechanical ventilation status Objective: The patient's most recent lab work, culture data and imaging studies have all been personally reviewed. - Physical Exam Vitals/I&O's: Vital Signs Temp Pulse Resp BP Pulse Ox 101.4 F H 96 12 109/74 99 02/27/20 04:30 02/27/20 04:57 02/27/20 04:57 02/27/20 04:30 02/27/20 04:57 Oxygen Flow Rate (L/min) 30 Oxygen Delivery Method Mechanical Ventilator Weight: 164 lb 14.492 oz Body Mass Index (BMI) 24.7 Finger Stick Blood Glucose 158 Intake and Output for Last 24 Hours 02/25/20 02/26/20 02/27/20 23:59 23:59 23:59 Intake Total 1838.00 / 1851.40 3459.7233 / 3459.7233 Output Total 800 / 975 500 / 500 Balance 1038.00 / 876.40 2959.7233 / 2959.7233 General: - - Intubated and mechanically ventilated. No ventilator dyssynchrony. HEENT: Atraumatic, Normocephalic Oral: No Gingival or Mucosal Lesions/ Ulcerations, - - Endotracheal tube in place Neck: Supple, No Nodes, Trachea Midline Lungs: No rhonchi, No wheeze, No rales Cardiovascular: Regular rate, Regular Rhythm Abdomen: Bowel Sounds Present, Soft, Non Tender Extremities: No clubbing, No cyanosis, No edema Skin: No breakdown Musculoskeletal: No Muscle Wasting Lymphatic: No Cervical, Supraclavicular, or Inguinal Adenopathy Neurological: - - Seems to demonstrate some facial grimacing to noxious stimulation. Labs (Last 48 Hours) 02/26/20 02/26/20 02/26/20 12:00 12:00 12:00 WBC Corrected WBC RBC Hgb Hct MCV MCH MCHC RDW Std Deviation RDW Coeff of [place] Plt Count MPV Immature Gran % (Auto) Neut % (Auto) Lymph % (Auto) [place] % (Auto) Eos % (Auto) Baso % (Auto) Absolute Neuts (auto) Absolute Lymphs (auto) Total Counted Neutrophils % (Manual) Band Neutrophils % Lymphocytes % (Manual) Monocytes % (Manual) Eosinophils % (Manual) Basophils % (Manual) Metamyelocytes % Myelocytes % Promyelocytes % Blast Cells % Plasma Cell % (Manual) Other Cells % Nucleated RBC % Nucleated RBCs/100 WBC Differential Comment Diff Path Review Hypersegmented Neuts Atypical Lymphocytes Reactive Lymphocytes Smudge Cells Toxic Granulation Toxic Vacuolation Dohle Bodies Mohsen Rods Platelet Estimate Plt Morphology Comment RBC Morphology Polychromasia Hypochromasia Poikilocytosis Basophilic Stippling Anisocytosis Microcytosis Macrocytosis Spherocytes Sickle Cells Target Cells Tear Drop Cells Ovalocytes Stomatocytes Carter-[place] Bodies [place] Cells Bite Cells Crenated Cell Acanthocytes (Spur) Rouleaux Schistocytes PT INR APTT Specimen Type Sample Site pH Bicarbonate Actual Total CO2 Base Excess O2 Saturation O2 % ABG pCO2 ABG pO2 Valentino Test Respiration Rate O2 Delivery Device Vent Mode Tidal Volume POC PEEP Blood Gas Notified Whom Sodium Potassium Chloride Carbon Dioxide Anion Gap BUN Creatinine Estim Creat Clear Calc Est GFR (MDRD) Af Amer Est GFR (MDRD) Non-Af BUN/Creatinine Ratio Glucose Serum Osmolality Cancelled Lactic Acid Calcium Phosphorus 1.1 L* Magnesium 2.1 Total Bilirubin Direct Bilirubin AST ALT Alkaline Phosphatase Total Creatine Kinase Troponin I Total Protein Albumin Globulin Albumin/Globulin Ratio Triglycerides TSH 1.67 Urine Color Urine Clarity Urine pH Ur Specific [place] Urine Protein Urine Glucose (UA) Urine Ketones Urine Occult Blood Urine Nitrite Urine Bilirubin Urine Urobilinogen Ur Leukocyte Esterase Urine RBC Urine WBC Ur Squamous Epith Cells Urine Bacteria Urine Mucus Urine Opiates Screen Urine Methadone Screen Acetaminophen < 2.0 L Ur Barbiturates Screen Tricyclics Screen Ur Phencyclidine Scrn Ur Amphetamines Screen U Methamphetamin-MDMA U Benzodiazepines Scrn Urine Cocaine Screen U Cannabinoids Screen Ur Drug Screen Comment Ethyl Alcohol Methyl Alcohol, Quant Miscellaneous Test 02/26/20 02/26/20 02/26/20 12:00 12:00 12:10 WBC 11.7 H Corrected WBC RBC 4.43 Hgb 13.6 Hct 41.4 MCV 93.5 MCH 30.7 MCHC 32.9 RDW Std Deviation 49.7 H RDW Coeff of [place] 14.7 H Plt Count 280 MPV 10.0 Immature Gran % (Auto) 1.200 H Neut % (Auto) 84.5 H Lymph % (Auto) 11.3 L [place] % (Auto) 2.7 Eos % (Auto) 0.0 Baso % (Auto) 0.3 Absolute Neuts (auto) 9.9 H Absolute Lymphs (auto) 1.32 Total Counted Neutrophils % (Manual) Band Neutrophils % Lymphocytes % (Manual) Monocytes % (Manual) Eosinophils % (Manual) Basophils % (Manual) Metamyelocytes % Myelocytes % Promyelocytes % Blast Cells % Plasma Cell % (Manual) Other Cells % Nucleated RBC % 0 Nucleated RBCs/100 WBC Differential Comment Diff Path Review Hypersegmented Neuts Atypical Lymphocytes Reactive Lymphocytes Smudge Cells Toxic Granulation Toxic Vacuolation Dohle Bodies Mohsen Rods Platelet Estimate Plt Morphology Comment RBC Morphology Polychromasia Hypochromasia Poikilocytosis Basophilic Stippling Anisocytosis Microcytosis Macrocytosis Spherocytes Sickle Cells Target Cells Tear Drop Cells Ovalocytes Stomatocytes Carter-[place] Bodies [place] Cells Bite Cells Crenated Cell Acanthocytes (Spur) Rouleaux Schistocytes PT INR APTT Specimen Type Sample Site pH Bicarbonate Actual Total CO2 Base Excess O2 Saturation O2 % ABG pCO2 ABG pO2 Valentino Test Respiration Rate O2 Delivery Device Vent Mode Tidal Volume POC PEEP Blood Gas Notified Whom Sodium Potassium Chloride Carbon Dioxide Anion Gap BUN Creatinine Estim Creat Clear Calc Est GFR (MDRD) Af Amer Est GFR (MDRD) Non-Af BUN/Creatinine Ratio Glucose Serum Osmolality Lactic Acid Calcium Phosphorus Magnesium Total Bilirubin 0.20 Direct Bilirubin 0.08 AST 52 H ALT 53 Alkaline Phosphatase 157 H Total Creatine Kinase Troponin I Total Protein 7.0 Albumin 3.4 Globulin 3.6 Albumin/Globulin Ratio Triglycerides TSH Urine Color Urine Clarity Urine pH Ur Specific [place] Urine Protein Urine Glucose (UA) Urine Ketones Urine Occult Blood Urine Nitrite Urine Bilirubin Urine Urobilinogen Ur Leukocyte Esterase Urine RBC Urine WBC Ur Squamous Epith Cells Urine Bacteria Urine Mucus Urine Opiates Screen Urine Methadone Screen Acetaminophen Ur Barbiturates Screen Tricyclics Screen Ur Phencyclidine Scrn Ur Amphetamines Screen U Methamphetamin-MDMA U Benzodiazepines Scrn Urine Cocaine Screen U Cannabinoids Screen Ur Drug Screen Comment Ethyl Alcohol Methyl Alcohol, Quant Miscellaneous Test Pending 02/26/20 02/26/20 02/26/20 12:10 12:10 12:10 WBC Corrected WBC RBC Hgb Hct MCV MCH MCHC RDW Std Deviation RDW Coeff of [place] Plt Count MPV Immature Gran % (Auto) Neut % (Auto) Lymph % (Auto) [place] % (Auto) Eos % (Auto) Baso % (Auto) Absolute Neuts (auto) Absolute Lymphs (auto) Total Counted Neutrophils % (Manual) Band Neutrophils % Lymphocytes % (Manual) Monocytes % (Manual) Eosinophils % (Manual) Basophils % (Manual) Metamyelocytes % Myelocytes % Promyelocytes % Blast Cells % Plasma Cell % (Manual) Other Cells % Nucleated RBC % Nucleated RBCs/100 WBC Differential Comment Diff Path Review Hypersegmented Neuts Atypical Lymphocytes Reactive Lymphocytes Smudge Cells Toxic Granulation Toxic Vacuolation Dohle Bodies Mohsen Rods Platelet Estimate Plt Morphology Comment RBC Morphology Polychromasia Hypochromasia Poikilocytosis Basophilic Stippling Anisocytosis Microcytosis Macrocytosis Spherocytes Sickle Cells Target Cells Tear Drop Cells Ovalocytes Stomatocytes Carter-[place] Bodies [place] Cells Bite Cells Crenated Cell Acanthocytes (Spur) Rouleaux Schistocytes PT Cancelled INR Cancelled APTT Cancelled Specimen Type Sample Site pH Bicarbonate Actual Total CO2 Base Excess O2 Saturation O2 % ABG pCO2 ABG pO2 Valentino Test Respiration Rate O2 Delivery Device Vent Mode Tidal Volume POC PEEP Blood Gas Notified Whom Sodium 149 H Potassium 3.2 L Chloride 123 H Carbon Dioxide 16.0 L Anion Gap 10 BUN 12 Creatinine 1.38 H Estim Creat Clear Calc 42.58 Est GFR (MDRD) Af Amer 52 L Est GFR (MDRD) Non-Af 43 L BUN/Creatinine Ratio 8.7 L Glucose 142 H Serum Osmolality Lactic Acid Calcium 8.3 L Phosphorus Magnesium Total Bilirubin Direct Bilirubin AST ALT Alkaline Phosphatase Total Creatine Kinase Troponin I < 0.015 Total Protein Albumin Globulin Albumin/Globulin Ratio Triglycerides TSH Urine Color Urine Clarity Urine pH Ur Specific [place] Urine Protein Urine Glucose (UA) Urine Ketones Urine Occult Blood Urine Nitrite Urine Bilirubin Urine Urobilinogen Ur Leukocyte Esterase Urine RBC Urine WBC Ur Squamous Epith Cells Urine Bacteria Urine Mucus Urine Opiates Screen NEGATIVE Urine Methadone Screen NEGATIVE Acetaminophen Ur Barbiturates Screen NEGATIVE Tricyclics Screen Ur Phencyclidine Scrn NEGATIVE Ur Amphetamines Screen POSITIVE H U Methamphetamin-MDMA NEGATIVE U Benzodiazepines Scrn NEGATIVE Urine Cocaine Screen POSITIVE H U Cannabinoids Screen NEGATIVE Ur Drug Screen Comment Ethyl Alcohol Methyl Alcohol, Quant Miscellaneous Test 02/26/20 02/26/20 02/26/20 12:10 12:10 12:10 WBC Corrected WBC RBC Hgb Hct MCV MCH MCHC RDW Std Deviation RDW Coeff of [place] Plt Count MPV Immature Gran % (Auto) Neut % (Auto) Lymph % (Auto) [place] % (Auto) Eos % (Auto) Baso % (Auto) Absolute Neuts (auto) Absolute Lymphs (auto) Total Counted Neutrophils % (Manual) Band Neutrophils % Lymphocytes % (Manual) Monocytes % (Manual) Eosinophils % (Manual) Basophils % (Manual) Metamyelocytes % Myelocytes % Promyelocytes % Blast Cells % Plasma Cell % (Manual) Other Cells % Nucleated RBC % Nucleated RBCs/100 WBC Differential Comment Diff Path Review Hypersegmented Neuts Atypical Lymphocytes Reactive Lymphocytes Smudge Cells Toxic Granulation Toxic Vacuolation Dohle Bodies Mohsen Rods Platelet Estimate Plt Morphology Comment RBC Morphology Polychromasia Hypochromasia Poikilocytosis Basophilic Stippling Anisocytosis Microcytosis Macrocytosis Spherocytes Sickle Cells Target Cells Tear Drop Cells Ovalocytes Stomatocytes Carter-Montgomery Bodies [place] Cells Bite Cells Crenated Cell Acanthocytes (Spur) Rouleaux Schistocytes PT INR APTT Specimen Type Sample Site pH Bicarbonate Actual Total CO2 Base Excess O2 Saturation O2 % ABG pCO2 ABG pO2 Valentino Test Respiration Rate O2 Delivery Device Vent Mode Tidal Volume POC PEEP Blood Gas Notified Whom Sodium Potassium Chloride Carbon Dioxide Anion Gap BUN Creatinine Estim Creat Clear Calc Est GFR (MDRD) Af Amer Est GFR (MDRD) Non-Af BUN/Creatinine Ratio Glucose Serum Osmolality Lactic Acid Calcium Phosphorus Magnesium Total Bilirubin Direct Bilirubin AST ALT Alkaline Phosphatase Total Creatine Kinase Troponin I Total Protein Albumin Globulin Albumin/Globulin Ratio Triglycerides TSH Urine Color Yellow Urine Clarity Sl. Cloudy Urine pH 6.5 Ur Specific [place] 1.010 Urine Protein Negative Urine Glucose (UA) Normal Urine Ketones Negative Urine Occult Blood Negative Urine Nitrite Negative Urine Bilirubin Negative Urine Urobilinogen Normal Ur Leukocyte Esterase Negative Urine RBC 0 SEEN Urine WBC 0 SEEN Ur Squamous Epith Cells 0 SEEN Urine Bacteria 0 SEEN Urine Mucus 0 SEEN Urine Opiates Screen Urine Methadone Screen Acetaminophen Ur Barbiturates Screen Tricyclics Screen POSITIVE H Ur Phencyclidine Scrn Ur Amphetamines Screen U Methamphetamin-MDMA U Benzodiazepines Scrn Urine Cocaine Screen U Cannabinoids Screen Ur Drug Screen Comment Ethyl Alcohol 52.0 Methyl Alcohol, Quant Miscellaneous Test 02/26/20 02/26/20 02/26/20 13:09 13:15 13:45 WBC Corrected WBC RBC Hgb Hct MCV MCH MCHC RDW Std Deviation RDW Coeff of [place] Plt Count MPV Immature Gran % (Auto) Neut % (Auto) Lymph % (Auto) [place] % (Auto) Eos % (Auto) Baso % (Auto) Absolute Neuts (auto) Absolute Lymphs (auto) Total Counted Neutrophils % (Manual) Band Neutrophils % Lymphocytes % (Manual) Monocytes % (Manual) Eosinophils % (Manual) Basophils % (Manual) Metamyelocytes % Myelocytes % Promyelocytes % Blast Cells % Plasma Cell % (Manual) Other Cells % Nucleated RBC % Nucleated RBCs/100 WBC Differential Comment Diff Path Review Hypersegmented Neuts Atypical Lymphocytes Reactive Lymphocytes Smudge Cells Toxic Granulation Toxic Vacuolation Dohle Bodies Mohsen Rods Platelet Estimate Plt Morphology Comment RBC Morphology Polychromasia Hypochromasia Poikilocytosis Basophilic Stippling Anisocytosis Microcytosis Macrocytosis Spherocytes Sickle Cells Target Cells Tear Drop Cells Ovalocytes Stomatocytes Carter-[place] Bodies [place] Cells Bite Cells Crenated Cell Acanthocytes (Spur) Rouleaux Schistocytes PT 13.4 INR 1.1 APTT 23.8 L Specimen Type ART Sample Site R BRACHIAL pH 7.22 L Bicarbonate Actual 14.6 L Total CO2 16 Base Excess -13 L O2 Saturation 97 O2 % 30 ABG pCO2 35.3 ABG pO2 112 H Valentino Test NA Respiration Rate 12 O2 Delivery Device Vent Vent Mode A-C Tidal Volume 450 POC PEEP 3 Blood Gas Notified Whom ED Sodium Potassium Chloride Carbon Dioxide Anion Gap BUN Creatinine Estim Creat Clear Calc Est GFR (MDRD) Af Amer Est GFR (MDRD) Non-Af BUN/Creatinine Ratio Glucose Serum Osmolality Lactic Acid 2.7 H* Calcium Phosphorus Magnesium Total Bilirubin Direct Bilirubin AST ALT Alkaline Phosphatase Total Creatine Kinase Troponin I Total Protein Albumin Globulin Albumin/Globulin Ratio Triglycerides TSH Urine Color Urine Clarity Urine pH Ur Specific [place] Urine Protein Urine Glucose (UA) Urine Ketones Urine Occult Blood Urine Nitrite Urine Bilirubin Urine Urobilinogen Ur Leukocyte Esterase Urine RBC Urine WBC Ur Squamous Epith Cells Urine Bacteria Urine Mucus Urine Opiates Screen Urine Methadone Screen Acetaminophen Ur Barbiturates Screen Tricyclics Screen Ur Phencyclidine Scrn Ur Amphetamines Screen U Methamphetamin-MDMA U Benzodiazepines Scrn Urine Cocaine Screen U Cannabinoids Screen Ur Drug Screen Comment Ethyl Alcohol Methyl Alcohol, Quant Miscellaneous Test 02/26/20 02/26/20 02/26/20 13:45 17:00 17:00 WBC Corrected WBC RBC Hgb Hct MCV MCH MCHC RDW Std Deviation RDW Coeff of [place] Plt Count MPV Immature Gran % (Auto) Neut % (Auto) Lymph % (Auto) [place] % (Auto) Eos % (Auto) Baso % (Auto) Absolute Neuts (auto) Absolute Lymphs (auto) Total Counted Neutrophils % (Manual) Band Neutrophils % Lymphocytes % (Manual) Monocytes % (Manual) Eosinophils % (Manual) Basophils % (Manual) Metamyelocytes % Myelocytes % Promyelocytes % Blast Cells % Plasma Cell % (Manual) Other Cells % Nucleated RBC % Nucleated RBCs/100 WBC Differential Comment Diff Path Review Hypersegmented Neuts Atypical Lymphocytes Reactive Lymphocytes Smudge Cells Toxic Granulation Toxic Vacuolation Dohle Bodies Mohsen Rods Platelet Estimate Plt Morphology Comment RBC Morphology Polychromasia Hypochromasia Poikilocytosis Basophilic Stippling Anisocytosis Microcytosis Macrocytosis Spherocytes Sickle Cells Target Cells Tear Drop Cells Ovalocytes Stomatocytes Carter-[place] Bodies [place] Cells Bite Cells Crenated Cell Acanthocytes (Spur) Rouleaux Schistocytes PT INR APTT Specimen Type Sample Site pH Bicarbonate Actual Total CO2 Base Excess O2 Saturation O2 % ABG pCO2 ABG pO2 Valentino Test Respiration Rate O2 Delivery Device Vent Mode Tidal Volume POC PEEP Blood Gas Notified Whom Sodium 149 H Potassium 4.1 Chloride 122 H Carbon Dioxide 17.0 L Anion Gap 10 BUN 12 Creatinine 1.27 H Estim Creat Clear Calc 50.16 Est GFR (MDRD) Af Amer 57 L Est GFR (MDRD) Non-Af 47 L BUN/Creatinine Ratio 9.4 L Glucose 143 H Serum Osmolality Lactic Acid Calcium 8.0 L Phosphorus Magnesium Total Bilirubin Direct Bilirubin AST ALT Alkaline Phosphatase Total Creatine Kinase 3626 H Troponin I Total Protein Albumin Globulin Albumin/Globulin Ratio Triglycerides TSH Urine Color Urine Clarity Urine pH Ur Specific [place] Urine Protein Urine Glucose (UA) Urine Ketones Urine Occult Blood Urine Nitrite Urine Bilirubin Urine Urobilinogen Ur Leukocyte Esterase Urine RBC Urine WBC Ur Squamous Epith Cells Urine Bacteria Urine Mucus Urine Opiates Screen Urine Methadone Screen Acetaminophen Ur Barbiturates Screen Tricyclics Screen Ur Phencyclidine Scrn Ur Amphetamines Screen U Methamphetamin-MDMA U Benzodiazepines Scrn Urine Cocaine Screen U Cannabinoids Screen Ur Drug Screen Comment Ethyl Alcohol Methyl Alcohol, Quant Cancelled Miscellaneous Test 02/26/20 02/26/20 02/26/20 17:00 Unknown Unknown WBC Corrected WBC RBC Hgb Hct MCV MCH MCHC RDW Std Deviation RDW Coeff of [place] Plt Count MPV Immature Gran % (Auto) Neut % (Auto) Lymph % (Auto) [place] % (Auto) Eos % (Auto) Baso % (Auto) Absolute Neuts (auto) Absolute Lymphs (auto) Total Counted Neutrophils % (Manual) Band Neutrophils % Lymphocytes % (Manual) Monocytes % (Manual) Eosinophils % (Manual) Basophils % (Manual) Metamyelocytes % Myelocytes % Promyelocytes % Blast Cells % Plasma Cell % (Manual) Other Cells % Nucleated RBC % Nucleated RBCs/100 WBC Differential Comment Diff Path Review Hypersegmented Neuts Atypical Lymphocytes Reactive Lymphocytes Smudge Cells Toxic Granulation Toxic Vacuolation Dohle Bodies Mohsen Rods Platelet Estimate Plt Morphology Comment RBC Morphology Polychromasia Hypochromasia Poikilocytosis Basophilic Stippling Anisocytosis Microcytosis Macrocytosis Spherocytes Sickle Cells Target Cells Tear Drop Cells Ovalocytes Stomatocytes Carter-[place] Bodies [place] Cells Bite Cells Crenated Cell Acanthocytes (Spur) Rouleaux Schistocytes PT INR APTT Specimen Type Sample Site pH Bicarbonate Actual Total CO2 Base Excess O2 Saturation O2 % ABG pCO2 ABG pO2 Valentino Test Respiration Rate O2 Delivery Device Vent Mode Tidal Volume POC PEEP Blood Gas Notified Whom Sodium Potassium Chloride Carbon Dioxide Anion Gap BUN Creatinine Estim Creat Clear Calc Est GFR (MDRD) Af Amer Est GFR (MDRD) Non-Af BUN/Creatinine Ratio Glucose Serum Osmolality Lactic Acid Calcium Phosphorus Magnesium Total Bilirubin Direct Bilirubin AST ALT Alkaline Phosphatase Total Creatine Kinase 3607 H Troponin I Total Protein Albumin Globulin Albumin/Globulin Ratio Triglycerides 119 TSH Urine Color Urine Clarity Urine pH Ur Specific [place] Urine Protein Urine Glucose (UA) Urine Ketones Urine Occult Blood Urine Nitrite Urine Bilirubin Urine Urobilinogen Ur Leukocyte Esterase Urine RBC Urine WBC Ur Squamous Epith Cells Urine Bacteria Urine Mucus Urine Opiates Screen Urine Methadone Screen Acetaminophen Ur Barbiturates Screen Tricyclics Screen Ur Phencyclidine Scrn Ur Amphetamines Screen U Methamphetamin-MDMA U Benzodiazepines Scrn Urine Cocaine Screen U Cannabinoids Screen Ur Drug Screen Comment Ethyl Alcohol Methyl Alcohol, Quant Miscellaneous Test Pending Pending 02/27/20 02/27/20 02/27/20 01:00 01:00 04:20 WBC Cancelled Corrected WBC Cancelled RBC Cancelled Hgb Cancelled Hct Cancelled MCV Cancelled MCH Cancelled MCHC Cancelled RDW Std Deviation Cancelled RDW Coeff of [place] Cancelled Plt Count Cancelled MPV Cancelled Immature Gran % (Auto) Cancelled Neut % (Auto) Cancelled Lymph % (Auto) Cancelled [place] % (Auto) Cancelled Eos % (Auto) Cancelled Baso % (Auto) Cancelled Absolute Neuts (auto) Cancelled Absolute Lymphs (auto) Cancelled Total Counted Cancelled Neutrophils % (Manual) Cancelled Band Neutrophils % Cancelled Lymphocytes % (Manual) Cancelled Monocytes % (Manual) Cancelled Eosinophils % (Manual) Cancelled Basophils % (Manual) Cancelled Metamyelocytes % Cancelled Myelocytes % Cancelled Promyelocytes % Cancelled Blast Cells % Cancelled Plasma Cell % (Manual) Cancelled Other Cells % Cancelled Nucleated RBC % Cancelled Nucleated RBCs/100 WBC Cancelled Differential Comment Cancelled Diff Path Review Cancelled Hypersegmented Neuts Cancelled Atypical Lymphocytes Cancelled Reactive Lymphocytes Cancelled Smudge Cells Cancelled Toxic Granulation Cancelled Toxic Vacuolation Cancelled Dohle Bodies Cancelled Mohsen Rods Cancelled Platelet Estimate Cancelled Plt Morphology Comment Cancelled RBC Morphology Cancelled Polychromasia Cancelled Hypochromasia Cancelled Poikilocytosis Cancelled Basophilic Stippling Cancelled Anisocytosis Cancelled Microcytosis Cancelled Macrocytosis Cancelled Spherocytes Cancelled Sickle Cells Cancelled Target Cells Cancelled Tear Drop Cells Cancelled Ovalocytes Cancelled Stomatocytes Cancelled Carter-[place] Bodies Cancelled Benji Cells Cancelled Bite Cells Cancelled Crenated Cell Cancelled Acanthocytes (Spur) Cancelled Rouleaux Cancelled Schistocytes Cancelled PT INR APTT Specimen Type Sample Site pH Bicarbonate Actual Total CO2 Base Excess O2 Saturation O2 % ABG pCO2 ABG pO2 Valentino Test Respiration Rate O2 Delivery Device Vent Mode Tidal Volume POC PEEP Blood Gas Notified Whom Sodium Potassium Chloride Carbon Dioxide Anion Gap BUN Creatinine Estim Creat Clear Calc Est GFR (MDRD) Af Amer Est GFR (MDRD) Non-Af BUN/Creatinine Ratio Glucose Serum Osmolality Lactic Acid 4.0 H* Calcium Phosphorus Magnesium Total Bilirubin Direct Bilirubin AST ALT Alkaline Phosphatase Total Creatine Kinase Troponin I Total Protein Albumin Globulin Albumin/Globulin Ratio Triglycerides TSH Urine Color Straw Urine Clarity Clear Urine pH 7.0 Ur Specific [place] 1.010 Urine Protein Negative Urine Glucose (UA) Normal Urine Ketones Negative Urine Occult Blood 25 H Urine Nitrite Negative Urine Bilirubin Negative Urine Urobilinogen Normal Ur Leukocyte Esterase Negative Urine RBC 0 SEEN Urine WBC 0 SEEN Ur Squamous Epith Cells 0 SEEN Urine Bacteria 0 SEEN Urine Mucus 0 SEEN Urine Opiates Screen Urine Methadone Screen Acetaminophen Ur Barbiturates Screen Tricyclics Screen Ur Phencyclidine Scrn Ur Amphetamines Screen U Methamphetamin-MDMA U Benzodiazepines Scrn Urine Cocaine Screen U Cannabinoids Screen Ur Drug Screen Comment Ethyl Alcohol Methyl Alcohol, Quant Miscellaneous Test 02/27/20 02/27/20 02/27/20 04:20 05:05 05:05 WBC Corrected WBC RBC Hgb Hct MCV MCH MCHC RDW Std Deviation RDW Coeff of Shiraz Plt Count MPV Immature Gran % (Auto) Neut % (Auto) Lymph % (Auto) [place] % (Auto) Eos % (Auto) Baso % (Auto) Absolute Neuts (auto) Absolute Lymphs (auto) Total Counted Neutrophils % (Manual) Band Neutrophils % Lymphocytes % (Manual) Monocytes % (Manual) Eosinophils % (Manual) Basophils % (Manual) Metamyelocytes % Myelocytes % Promyelocytes % Blast Cells % Plasma Cell % (Manual) Other Cells % Nucleated RBC % Nucleated RBCs/100 WBC Differential Comment Diff Path Review Hypersegmented Neuts Atypical Lymphocytes Reactive Lymphocytes Smudge Cells Toxic Granulation Toxic Vacuolation Dohle Bodies Mohsen Rods Platelet Estimate Plt Morphology Comment RBC Morphology Polychromasia Hypochromasia Poikilocytosis Basophilic Stippling Anisocytosis Microcytosis Macrocytosis Spherocytes Sickle Cells Target Cells Tear Drop Cells Ovalocytes Stomatocytes Carter-[place] Bodies [place] Cells Bite Cells Crenated Cell Acanthocytes (Spur) Rouleaux Schistocytes PT INR APTT Specimen Type Sample Site pH Bicarbonate Actual Total CO2 Base Excess O2 Saturation O2 % ABG pCO2 ABG pO2 Valentino Test Respiration Rate O2 Delivery Device Vent Mode Tidal Volume POC PEEP Blood Gas Notified Whom Sodium Cancelled 148 H Potassium Cancelled 2.8 L Chloride Cancelled 117 H Carbon Dioxide Cancelled 23.0 Anion Gap Cancelled 8 BUN Cancelled 8 Creatinine Cancelled 0.92 Estim Creat Clear Calc Cancelled 69.25 Est GFR (MDRD) Af Amer Cancelled 83 Est GFR (MDRD) Non-Af Cancelled 69 BUN/Creatinine Ratio Cancelled 8.7 L Glucose Cancelled 130 H Serum Osmolality Lactic Acid 5.8 H* Calcium Cancelled 5.8 L* Phosphorus Magnesium Cancelled 1.3 L Total Bilirubin Cancelled 0.20 Direct Bilirubin AST Cancelled 53 H ALT Cancelled 39 Alkaline Phosphatase Cancelled 99 Total Creatine Kinase Troponin I Total Protein Cancelled 4.3 L Albumin Cancelled 1.9 L Globulin Cancelled 2.4 Albumin/Globulin Ratio Cancelled 0.8 L Triglycerides TSH Urine Color Urine Clarity Urine pH Ur Specific [place] Urine Protein Urine Glucose (UA) Urine Ketones Urine Occult Blood Urine Nitrite Urine Bilirubin Urine Urobilinogen Ur Leukocyte Esterase Urine RBC Urine WBC Ur Squamous Epith Cells Urine Bacteria Urine Mucus Urine Opiates Screen Urine Methadone Screen Acetaminophen Ur Barbiturates Screen Tricyclics Screen Ur Phencyclidine Scrn Ur Amphetamines Screen U Methamphetamin-MDMA U Benzodiazepines Scrn Urine Cocaine Screen U Cannabinoids Screen Ur Drug Screen Comment Ethyl Alcohol Methyl Alcohol, Quant Miscellaneous Test 02/27/20 05:05 WBC 16.1 H Corrected WBC RBC 3.49 L Hgb 10.7 L Hct 33.2 L MCV 95.1 MCH 30.7 MCHC 32.2 RDW Std Deviation 53.3 H RDW Coeff of [place]az 15.5 H Plt Count 211 MPV 9.9 Immature Gran % (Auto) 0.400 Neut % (Auto) 83.7 H Lymph % (Auto) 8.4 L [place] % (Auto) 7.4 Eos % (Auto) 0.0 Baso % (Auto) 0.1 Absolute Neuts (auto) 13.5 H Absolute Lymphs (auto) 1.35 Total Counted Neutrophils % (Manual) Band Neutrophils % Lymphocytes % (Manual) Monocytes % (Manual) Eosinophils % (Manual) Basophils % (Manual) Metamyelocytes % Myelocytes % Promyelocytes % Blast Cells % Plasma Cell % (Manual) Other Cells % Nucleated RBC % 0 Nucleated RBCs/100 WBC Differential Comment Diff Path Review Hypersegmented Neuts Atypical Lymphocytes Reactive Lymphocytes Smudge Cells Toxic Granulation Toxic Vacuolation Dohle Bodies Mohsen Rods Platelet Estimate Plt Morphology Comment RBC Morphology Polychromasia Hypochromasia Poikilocytosis Basophilic Stippling Anisocytosis Microcytosis Macrocytosis Spherocytes Sickle Cells Target Cells Tear Drop Cells Ovalocytes Stomatocytes Carter-[place] Bodies [place] Cells Bite Cells Crenated Cell Acanthocytes (Spur) Rouleaux Schistocytes PT INR APTT Specimen Type Sample Site pH Bicarbonate Actual Total CO2 Base Excess O2 Saturation O2 % ABG pCO2 ABG pO2 Valentino Test Respiration Rate O2 Delivery Device Vent Mode Tidal Volume POC PEEP Blood Gas Notified Whom Sodium Potassium Chloride Carbon Dioxide Anion Gap BUN Creatinine Estim Creat Clear Calc Est GFR (MDRD) Af Amer Est GFR (MDRD) Non-Af BUN/Creatinine Ratio Glucose Serum Osmolality Lactic Acid Calcium Phosphorus Magnesium Total Bilirubin Direct Bilirubin AST ALT Alkaline Phosphatase Total Creatine Kinase Troponin I Total Protein Albumin Globulin Albumin/Globulin Ratio Triglycerides TSH Urine Color Urine Clarity Urine pH Ur Specific [place] Urine Protein Urine Glucose (UA) Urine Ketones Urine Occult Blood Urine Nitrite Urine Bilirubin Urine Urobilinogen Ur Leukocyte Esterase Urine RBC Urine WBC Ur Squamous Epith Cells Urine Bacteria Urine Mucus Urine Opiates Screen Urine Methadone Screen Acetaminophen Ur Barbiturates Screen Tricyclics Screen Ur Phencyclidine Scrn Ur Amphetamines Screen U Methamphetamin-MDMA U Benzodiazepines Scrn Urine Cocaine Screen U Cannabinoids Screen Ur Drug Screen Comment Ethyl Alcohol Methyl Alcohol, Quant Miscellaneous Test Microbiology 02/27/20 02:00 Sputum, Induced/Lukens Gram Stain - Preliminary Current Medications Acetaminophen (Tylenol) 650 mg RECTAL Q6H PRN PRN PRN Reason: Temp > 100.7 Last Admin: 02/27/20 01:54 Dose: 650 mg Documented by: Chlorhexidine Gluconate () 15 ml PO BID [facility] Last Admin: 02/26/20 22:50 Dose: 15 ml Documented by: Chlorhexidine Gluconate () 1 each TOPICAL DAILY [facility] Heparin Sodium (Porcine) (Heparin Na) 5,000 unit SC Q8 [facility] Last Admin: 02/27/20 05:34 Dose: 5,000 unit Documented by: Sodium Chloride () 500 mls @ 999 mls/hr IV .Q31M ONE Last Infusion: 02/26/20 12:55 Dose: Infused Documented by: Fentanyl Citrate 1,000 mcg/ (Sodium Chloride) 100 mls @ 5 mls/hr CONT INF .Q20H [facility]; Protocol Last Titration: 02/27/20 04:00 Dose: 50 mcg/hr, 5 mls/hr Documented by: Propofol (Diprivan) 1,000 mg in 100 mls @ 4.182 mls/hr CONT INF .Q12H [facility]; Protocol Last Titration: 02/27/20 04:45 Dose: 10 mcg/kg/min, 4.2 mls/hr Documented by: Azithromycin 500 mg/ Dextrose 255 mls @ 250 mls/hr IV Q24@2200 JULIUS Last Infusion: 02/27/20 03:37 Dose: Infused Documented by: Sodium Chloride () 250 mls @ 15 mls/hr IV .[id number] PRN PRN Reason: Saline Flush Sodium Chloride () 250 mls @ 15 mls/hr IV .[id number] PRN PRN Reason: Additional IVPB Infusion Piperacillin Sod/Tazobactam (Sod 3.375 gm/ Sodium Chloride) 50 mls @ 12.5 mls/hr IV Q8 JULIUS Lactated Ringer's () 1,000 mls @ 500 mls/hr IV .Q2H JULIUS Stop: 02/27/20 07:16 Last Admin: 02/27/20 05:28 Dose: 500 mls/hr Documented by: Sodium Bicarbonate 150 meq/ (Dextrose) 1,150 mls @ 100 mls/hr IV .[id number] JULIUS Last Admin: 02/27/20 03:49 Dose: 100 mls/hr Documented by: Lorazepam (Ativan) 2 mg IV Q2H PRN PRN PRN Reason: SEIZURES Last Admin: 02/26/20 21:29 Dose: 2 mg Documented by: Sodium Chloride () 10 - 40 ml IV UD PRN PRN Reason: SALINE FLUSH Last Admin: 02/27/20 02:27 Dose: 40 ml Documented by: Assessment/Plan RECOMMENDATIONS: 1. Obtain EEG and MRI, if feasible. 2. Follow-up with neurology after EEG completed. 3. Continue to withhold all sedating medications. 4. Continue seizure precautions and as needed Ativan. 5. Continue empiric antimicrobials. 6. Start dextrose containing supplemental IV fluids. 7. Aggressive electrolyte repletion. IMPRESSIONS: 1. Acute hypoxemic respiratory failure The patient was initially intubated in the emergency department after being found unresponsive at home. She does have a history of polysubstance abuse. There is also concern for potential aspiration event. Therefore, agree with continuing empiric antimicrobials for now. Continue to wean FiO2 and PEEP to maintain oxygen saturations at or above 90%. 2. Encephalopathy Although there was initial concern for possible anoxic brain injury, the patient did apparently demonstrate some seizure-like activity overnight. She is currently nonresponsive, raising the concern for nonconvulsive status. EEG is to be obtained this morning. After completed, will obtain neurology consultation to reevaluate the patient. For now, continue to withhold all sedating medications. 3. Acute kidney injury Likely prerenal in etiology. Creatinine has normalized with gentle IV fluid hy dration. Continue to monitor urine output. No current indication for renal replacement therapy. 4. Hypernatremia/hyperchloremia/hypokalemia/hypomagnesemia Aggressive electrolyte repletion as ordered. I would recommend starting D5W to offset rising sodium and chloride levels. 5. Chronic kidney disease/bipolar disorder/chronic pain syndrome/ADHD/history of polysubstance abuse Complicates care, management, recovery and prognosis. Continue current supportive measures as noted above. TIME: 38 minutes of critical care time, independent of procedures, was spent addressing the patient's acute hypoxemic respiratory failure, encephalopathy, acute kidney injury, hypernatremia, hypokalemia, hypomagnesemia, review of all data and collaboration with the care team. [id number]) [phone]: [id number] Critical care first hour
[2020-02-27] MEDS: TITRATION PARAMETER CHANGE 1 EACH IV (06:59)
--- NOTE | 2020-02-27 07:39 | PCM.PN.HOSP ---
Patient Problems: Active and Suspected Problems Coma (Acute) Metabolic acidosis (Acute) Encephalopathy acute (Acute) Reason for Visit: Follow-up on acute respiratory failure/metabolic encephalopathy/possible anoxic brain injury/lactic acidosis Subjective: Patient was seen and examined. Overnight she spiked a fever; T-max 102.7. Blood and urine cultures as well as repeat chest x-ray done and pending. Sputum cultures are also still pending She was started on IV ceftriaxone and azithromycin. Antibiotics been changed to IV Zosyn. She had a seizure-like activity left leg continues twitching and bilateral arm tensing or posturing and was started on IV propofol for restlessness. Stat EEG ordered yesterday as well as tele-neurology consult. Results of stat EEG pending. Nursing staff have reached out to tele-neurology. Vitals/I&O's: Vital Signs Temp Pulse Resp BP Pulse Ox 100.2 F H 104 H 22 H 162/100 H 97 02/27/20 07:00 02/27/20 07:00 02/27/20 07:00 02/27/20 07:00 02/27/20 07:00 Oxygen Flow Rate (L/min) 30 Oxygen Delivery Method Mechanical Ventilator Weight: 72.1 kg Body Mass Index (BMI) 24.7 Finger Stick Blood Glucose 158 Intake and Output for Last 24 Hours 02/25/20 02/26/20 02/27/20 23:59 23:59 23:59 Intake Total 1838.00 / 1851.40 4943.8033 / 4943.8033 Output Total 800 / 975 600 / 600 Balance 1038.00 / 876.40 4343.8033 / 4343.8033 General: - - Intubated, occasional jerks, some response - wincing to deep/pain stimuli HEENT: Atraumatic, Normocephalic, - - Right pupil reacts to light, left pupil barely reacts to light. Oral: Dry Mucosa Neck: Supple Lungs: Clear to auscultation, Normal air movement Cardiovascular: Regular rate, Regular Rhythm, Normal S1, Normal S2, No murmurs Abdomen: Bowel Sounds Present, Soft, Non Tender, Non-Distended, No Hepato-splenomegaly Extremities: No edema Skin: - - Tattoes over legs, scaly, erythematous rash over both soles of feet Musculoskeletal: No Tenderness to Palpation of Joints or Extremities Lymphatic: No Cervical, Supraclavicular, or Inguinal Adenopathy Neurological: Cranial nerves II-XII grossly intact, Neuro grossly intact Psych/Mental Status: Normal Affect, Appropriate Microbiology Past 72 Hours 02/27/20 02:00 Sputum, Induced/Lukens Gram Stain - Preliminary Laboratory Results 02/26/20 12:00: Phosphorus 1.1 L*, Magnesium 2.1, TSH 1.67 02/26/20 12:00: Serum Osmolality Cancelled 02/26/20 12:00: Acetaminophen < 2.0 L 02/26/20 12:00: Total Bilirubin 0.20, Direct Bilirubin 0.08, AST 52 H, ALT 53, Alkaline Phosphatase 157 H, Total Protein 7.0, Albumin 3.4, Globulin 3.6 02/26/20 12:00: Miscellaneous Test Pending 02/26/20 12:10: WBC 11.7 H, RBC 4.43, Hgb 13.6, Hct 41.4, MCV 93.5, MCH 30.7, MCHC 32.9, RDW Std Deviation 49.7 H, RDW Coeff of Shiraz 14.7 H, Plt Count 280, MPV 10.0, Immature Gran % (Auto) 1.200 H, Neut % (Auto) 84.5 H, Lymph % (Auto) 11.3 L, [place] % (Auto) 2.7, Eos % (Auto) 0.0, Baso % (Auto) 0.3, Absolute Neuts (auto) 9.9 H, Absolute Lymphs (auto) 1.32, Nucleated RBC % 0 02/26/20 12:10: PT Cancelled, INR Cancelled, APTT Cancelled 02/26/20 12:10: Sodium 149 H, Potassium 3.2 L, Chloride 123 H, Carbon Dioxide 16.0 L, Anion Gap 10, BUN 12, Creatinine 1.38 H, Estim Creat Clear Calc 42.58, Est GFR (MDRD) Af Amer 52 L, Est GFR (MDRD) Non-Af 43 L, BUN/Creatinine Ratio 8.7 L, Glucose 142 H, Calcium 8.3 L, Troponin I < 0.015 02/26/20 12:10: Urine Opiates Screen NEGATIVE, Urine Methadone Screen NEGATIVE, Ur Barbiturates Screen NEGATIVE, Ur Phencyclidine Scrn NEGATIVE, Ur Amphetamines Screen POSITIVE H, U Methamphetamin-MDMA NEGATIVE, U Benzodiazepines Scrn NEGATIVE, Urine Cocaine Screen POSITIVE H, U Cannabinoids Screen NEGATIVE, Ur Drug Screen Comment 02/26/20 12:10: Ethyl Alcohol 52.0 02/26/20 12:10: Tricyclics Screen POSITIVE H, Ur Drug Screen Comment 02/26/20 12:10: Urine Color Yellow, Urine Clarity Sl. Cloudy, Urine pH 6.5, Ur Specific [place] 1.010, Urine Protein Negative, Urine Glucose (UA) Normal, Urine Ketones Negative, Urine Occult Blood Negative, Urine Nitrite Negative, Urine Bilirubin Negative, Urine Urobilinogen Normal, Ur Leukocyte Esterase Negative, Urine RBC 0 SEEN, Urine WBC 0 SEEN, Ur Squamous Epith Cells 0 SEEN, Urine Bacteria 0 SEEN, Urine Mucus 0 SEEN 02/26/20 13:09: Specimen Type ART, Sample Site R BRACHIAL, pH 7.22 L, Bicarbonate Actual 14.6 L, Total CO2 16, Base Excess -13 L, O2 Saturation 97, O2 % 30, ABG pCO2 35.3, ABG pO2 112 H, Valentino Test NA, Respiration Rate 12, O2 Delivery Device Vent, Vent Mode A-C, Tidal Volume 450, POC PEEP 3, Blood Gas Notified Whom ED 02/26/20 13:15: PT 13.4, INR 1.1, APTT 23.8 L 02/26/20 13:45: Lactic Acid 2.7 H* 02/26/20 13:45: Methyl Alcohol, Quant Cancelled 02/26/20 17:00: Sodium 149 H, Potassium 4.1, Chloride 122 H, Carbon Dioxide 17.0 L, Anion Gap 10, BUN 12, Creatinine 1.27 H, Estim Creat Clear Calc 50.16, Est GFR (MDRD) Af Amer 57 L, Est GFR (MDRD) Non-Af 47 L, BUN/Creatinine Ratio 9.4 L, Glucose 143 H, Calcium 8.0 L 02/26/20 17:00: Total Creatine Kinase 3626 H 02/26/20 17:00: Total Creatine Kinase 3607 H, Triglycerides 119 02/26/20 : Miscellaneous Test Pending 02/26/20 : Miscellaneous Test Pending 02/27/20 01:00: Lactic Acid 4.0 H* 02/27/20 01:00: Urine Color Straw, Urine Clarity Clear, Urine pH 7.0, Ur Specific [place] 1.010, Urine Protein Negative, Urine Glucose (UA) Normal, Urine Ketones Negative, Urine Occult Blood 25 H, Urine Nitrite Negative, Urine Bilirubin Negative, Urine Urobilinogen Normal, Ur Leukocyte Esterase Negative, Urine RBC 0 SEEN, Urine WBC 0 SEEN, Ur Squamous Epith Cells 0 SEEN, Urine Bacteria 0 SEEN, Urine Mucus 0 SEEN 02/27/20 04:20: WBC Cancelled, Corrected WBC Cancelled, RBC Cancelled, Hgb Cancelled, Hct Cancelled, MCV Cancelled, MCH Cancelled, MCHC Cancelled, RDW Std Deviation Cancelled, RDW Coeff of [place]az Cancelled, Plt Count Cancelled, MPV Cancelled, Immature Gran % (Auto) Cancelled, Neut % (Auto) Cancelled, Lymph % (Auto) Cancelled, [place] % (Auto) Cancelled, Eos % (Auto) Cancelled, Baso % (Auto) Cancelled, Absolute Neuts (auto) Cancelled, Absolute Lymphs (auto) Cancelled, Total Counted Cancelled, Neutrophils % (Manual) Cancelled, Band Neutrophils % Cancelled, Lymphocytes % (Manual) Cancelled, Monocytes % (Manual) Cancelled, Eosinophils % (Manual) Cancelled, Basophils % (Manual) Cancelled, Metamyelocytes % Cancelled, Myelocytes % Cancelled, Promyelocytes % Cancelled, Blast Cells % Cancelled, Plasma Cell % (Manual) Cancelled, Other Cells % Cancelled, Nucleated RBC % Cancelled, Nucleated RBCs/100 WBC Cancelled, Differential Comment Cancelled, Diff Path Review Cancelled, Hypersegmented Neuts Cancelled, Atypical Lymphocytes Cancelled, Reactive Lymphocytes Cancelled, Smudge Cells Cancelled, Toxic Granulation Cancelled, Toxic Vacuolation Cancelled, Dohle Bodies Cancelled, Mohsen Rods Cancelled, Platelet Estimate Cancelled, Plt Morphology Comment Cancelled, RBC Morphology Cancelled, Polychromasia Cancelled, Hypochromasia Cancelled, Poikilocytosis Cancelled, Basophilic Stippling Cancelled, Anisocytosis Cancelled, Microcytosis Cancelled, Macrocytosis Cancelled, Spherocytes Cancelled, Sickle Cells Cancelled, Target Cells Cancelled, Tear Drop Cells Cancelled, Ovalocytes Cancelled, Stomatocytes Cancelled, [place] Bodies Cancelled, [place] Cells Cancelled, Bite Cells Cancelled, Crenated Cell Cancelled, Acanthocytes (Spur) Cancelled, Rouleaux Cancelled, Schistocytes Cancelled 02/27/20 04:20: Sodium Cancelled, Potassium Cancelled, Chloride Cancelled, Carbon Dioxide Cancelled, Anion Gap Cancelled, BUN Cancelled, Creatinine Cancelled, Estim Creat Clear Calc Cancelled, Est GFR (MDRD) Af Amer Cancelled, Est GFR (MDRD) Non-Af Cancelled, BUN/Creatinine Ratio Cancelled, Glucose Cancelled, Calcium Cancelled, Magnesium Cancelled, Total Bilirubin Cancelled, AST Cancelled, ALT Cancelled, Alkaline Phosphatase Cancelled, Total Protein Cancelled, Albumin Cancelled, Globulin Cancelled, Albumin/Globulin Ratio Cancelled 02/27/20 05:05: Lactic Acid 5.8 H* 02/27/20 05:05: Sodium 148 H, Potassium 2.8 L, Chloride 117 H, Carbon Dioxide 23.0, Anion Gap 8, BUN 8, Creatinine 0.92, Estim Creat Clear Calc 69.25, Est GFR (MDRD) Af Amer 83, Est GFR (MDRD) Non-Af 69, BUN/Creatinine Ratio 8.7 L, Glucose 130 H, Calcium 5.8 L*, Magnesium 1.3 L, Total Bilirubin 0.20, AST 53 H, ALT 39, Alkaline Phosphatase 99, Total Protein 4.3 L, Albumin 1.9 L, Globulin 2.4, Albumin/Globulin Ratio 0.8 L 02/27/20 05:05: WBC 16.1 H, RBC 3.49 L, Hgb 10.7 L, Hct 33.2 L, MCV 95.1, MCH 30.7, MCHC 32.2, RDW Std Deviation 53.3 H, RDW Coeff of [place] 15.5 H, Plt Count 211, MPV 9.9, Immature Gran % (Auto) 0.400, Neut % (Auto) 83.7 H, Lymph % (Auto) 8.4 L, [place] % (Auto) 7.4, Eos % (Auto) 0.0, Baso % (Auto) 0.1, Absolute Neuts (auto) 13.5 H, Absolute Lymphs (auto) 1.35, Nucleated RBC % 0 Current Medications Acetaminophen (Tylenol) 650 mg RECTAL Q6H PRN PRN PRN Reason: Temp > 100.7 Last Admin: 02/27/20 01:54 Dose: 650 mg Documented by: Chlorhexidine Gluconate () 15 ml PO BID JULIUS Last Admin: 02/26/20 22:50 Dose: 15 ml Documented by: Chlorhexidine Gluconate () 1 each [facility] Heparin Sodium (Porcine) (Heparin Na) 5,000 unit SC Q8 [facility] Last Admin: 02/27/20 05:34 Dose: 5,000 unit Documented by: Sodium Chloride () 500 mls @ 999 mls/hr IV .Q31M ONE Last Infusion: 02/26/20 12:55 Dose: Infused Documented by: Fentanyl Citrate 1,000 mcg/ (Sodium Chloride) 100 mls @ 5 mls/hr CONT INF .Q20H [facility]; Protocol Last Titration: 02/27/20 07:00 Dose: 0 mcg/hr, 0 mls/hr Documented by: Propofol (Diprivan) 1,000 mg in 100 mls @ 4.326 mls/hr CONT INF .Q12H [facility]; Protocol Last Titration: 02/27/20 06:59 Dose: 0 mcg/kg/min, 0 mls/hr Documented by: Sodium Chloride () 250 mls @ 15 mls/hr IV .[id number] PRN PRN Reason: Saline Flush Sodium Chloride () 250 mls @ 15 mls/hr IV .[id number] PRN PRN Reason: Additional IVPB Infusion Piperacillin Sod/Tazobactam (Sod 3.375 gm/ Sodium Chloride) 50 mls @ 12.5 mls/hr IV Q8 [facility] Magnesium Sulfate () 4 gm in 100 mls @ 25 mls/hr IV X1 ONE Stop: 02/27/20 11:18 Lorazepam (Ativan) 2 mg IV Q2H PRN PRN PRN Reason: SEIZURES Last Admin: 02/26/20 21:29 Dose: 2 mg Documented by: Sodium Chloride () 10 - 40 ml IV UD PRN PRN Reason: SALINE FLUSH Last Admin: 02/27/20 02:27 Dose: 40 ml Documented by: STROKE Vital Signs/Narrative: Vital Signs Temp Pulse Resp BP Pulse Ox 02/27/20 07:00 100.2 F H 104 H 22 H 162/100 H 97 02/27/20 06:55 102 H 18 98 02/27/20 06:00 100.4 F H 96 16 116/76 99 02/27/20 05:30 100.5 F H 94 15 110/73 98 02/27/20 05:00 100.7 F H 100 16 126/85 H 95 02/27/20 04:57 96 12 99 02/27/20 04:30 101.4 F H 94 14 109/74 99 02/27/20 04:00 102.3 F H 94 14 100/69 99 Medical Necessity - Tobacco Use Smoking Status: Former smoker Tobacco Use: Non-smoker Assessment/Plan All Active Problems GARCIA (acute kidney injury) (Acute) Hypokalemia (Acute) Coma (Acute) Metabolic acidosis (Acute) Encephalopathy acute (Acute) 1.Acute metabolic/toxic encephalopathy, likely also anoxic brain injury versus status epilepticus Patient has been intubated for primary airway protection. Admitted with GCS of 3. Urine tox positive for cocaine, amphetamines and tricyclics. Serum alcohol level was 42 Patient is on Adderall, Elavil. She was on propofol overnight, off propofol as CK was elevated EEG is pending, will start on IV Keppra 500 mg twice daily Would repeat CT of the brain today as MRI is unable to be obtained 2. Fever, unclear etiology, possibly related to anoxic brain injury WBC count is elevated at 16.1 from 11.7 Chest x-ray negative for acute infiltrate, blood and urine cultures pending Patient currently on day 1 of empiric antibiotics -IV Zosyn 3. Acute hypoxic respiratory failure, secondary to #1 Status post intubation Companion following 4. Severe hypophosphatemia, replace, recheck in a.m. 5. Lactic acidosis likely secondary to #3, Continue on D5 water 6. Hypokalemia, potassium was 2.9, on replacement Repeat BMP at 12 noon 7. Hypernatremia, persistent, no much improved Continue on D5 water Repeat BMP at 12 noon 8. Hypomagnesemia, severe, magnesium is 1.3, replaced 9. GARCIA on CKD stage III, resolved with hydration, admitting creatinine 1.27, creatinine today 0.92 Continue on IV fluids and monitor urine output 10. Bipolar disorder/ADHD/chronic back pain/neck alcohol use/polysubstance use, Home Adderall, Elavil on hold 11. DVT prophylaxis with heparin subcu 12. GI prophylaxis with famotidine IV 13. CODE STATUS full code Inpatient E&M: 29663 Subs Hosp L3
[2020-02-27 07:55] LABS: Phosphorus 2.8 mg/dL (2.5-4.9)
[2020-02-27] MEDS: Potassium Chloride 10mEq/100mL 10 MEQ/100 ML IV.SOLN. 100 MEQ IV BOLUS ×4 (08:50→13:42)
[2020-02-27 11:04] LABS: Allen Test POS; Blood Gas Specimen Type ART; SITE R RADIAL
[2020-02-27 11:05] LABS: FI02 21; Mode A-C; O2 Delivery Device Vent; PEEP 5; RR 12; Time Given 700; Vt 450
[2020-02-27 11:06] LABS: Base Excess 1 mmol/L (-2 to +2); Bicarbonate 24.8 mmol/L (22-26); PO2 63 mmHG (75-100); SO2 94 % (95-99); Total Carbon Dioxide 26 mmol/L; pCO2 33.6 mmHg (35-45); pH 7.48 (7.35-7.45)
--- NOTE | 2020-02-27 11:20 | RAD_ITS ---
STUDY: X-RAY - ABDOMEN/PELVIS REASON FOR EXAM: Female, 49 years old. OG PLACEMENT TECHNIQUE: Single AP view of the abdomen / pelvis. COMPARISON: None. FINDINGS: Nasogastric tube with the tip above the diaphragm likely in the distal esophagus. There is an unremarkable bowel gas pattern. The visualized liver, spleen and kidneys are grossly normal in size and morphology. Normal soft tissue structures. Normal visualized osseous structures. RAD/Abdomen Single View (Portable) IMPRESSION: Nasogastric tube with the tip above the diaphragm likely in the distal esophagus. Electronically Signed: Nuno Montejo MD at 12:08 EDT Tel , Service support ,
[2020-02-27] MEDS: Magnesium Sulfate 4gm/100mL 4 GM/100 ML IV.SOLN. IV (11:21)
[2020-02-27] MEDS: Chlorhexidine 15 ML PO (11:51)
[2020-02-27] MEDS: Famotidine 200 MG/20 ML MDV 20 MG in 0.9% Normal Saline (Pres. free 8 ML 300 MG IV (11:51)
[2020-02-27] MEDS: CHLORHEXIDINE GLUC 2% CLOTH 1 EACH TOWELETTE TOPICAL (11:51)
--- NOTE | 2020-02-27 12:50 | PCM.DC.SUM ---
Discharge Date and Diagnosis - Problem List Patient Problems: Active and Suspected Problems Coma (Acute) Metabolic acidosis (Acute) Encephalopathy acute (Acute) Date of Admission: 02/26/20 Date of Discharge: 02/27/20 - Primary Discharge Diagnosis Acute Problems: Active Problems Acute metabolic/toxic encephalopathy Fever, unclear etiology Acute hypoxic respiratory failure Severe hypophosphatemia Lactic acidosis Hypokalemia Hypomagnesemia Hypernatremia GARCIA on CKD stage 3 - Secondary Discharge Diagnosis Chronic Problems: Chronic Problems Anxiety and depression (Chronic) Chronic back pain (Chronic) HTN (hypertension) (Chronic) Bipolar 1 disorder (Chronic) Hospital Course and Treatment Imaging Results: Clinical Impression(s) from Imaging Studies Brain CT 02/26/20 12:06 IMPRESSION: 1. No acute intracranial hemorrhage or mass effect. N.B. : The above information has been verbally conveyed by Wale Mosher MD (Brooks) to Francis Frerera MD, on 02/26/2020 12:37:21 (ET). Electronically Signed: Wale Mosher MD (Brooks) at 12:39 EDT , Service support , ADDENDUM: 02/26/20 1246 IMPRESSION: 1. No acute intracranial hemorrhage or mass effect. N.B. : The above information has been verbally conveyed by Wale Mosher MD (Brooks) to Francis Ferrera MD, on 02/26/2020 12:37:21 (ET). Electronically Signed: Wale Mosher MD (Brooks) at 12:39 EDT , Service support , Chest X-Ray 02/26/20 12:06 IMPRESSION: 1. Satisfactory position of endotracheal tube. 2. Suboptimal enteric tube terminating in the lower esophagus. Recommend advancing 10-15 cm. Electronically Signed: Wale Mosher MD (Brooks) at 13:48 EDT , Service support , Head/Neck CTA 02/26/20 12:07 IMPRESSION: 1. No large vessel occlusion. 2. No hemodynamically significant stenosis of the carotid arteries. No arterial dissection. N.B. : The above information has been verbally conveyed by Wale Mosher MD (Brooks) to Francis Ferrera MD, on 02/26/2020 12:47:49 (ET). Electronically Signed: Wale Mosher MD (Brooks) at 12:50 EDT , Service support , ADDENDUM: 02/26/20 1257 IMPRESSION: 1. No large vessel occlusion. 2. No hemodynamically significant stenosis of the carotid arteries. No arterial dissection. N.B. : The above information has been verbally conveyed by Wale Mosher MD (Brooks) to Francis Ferrera MD, on 02/26/2020 12:47:49 (ET). Electronically Signed: Wale Mosher MD (Brooks) at 12:50 EDT , Service support , Chest X-Ray 02/27/20 00:50 IMPRESSION: No radiographic evidence of acute cardiopulmonary disease. Electronically Signed: Jany Rodriguez MD at 1:28 EDT , Service support , KUB X-Ray 02/27/20 11:20 IMPRESSION: Nasogastric tube with the tip above the diaphragm likely in the distal esophagus. Electronically Signed: Nuno Montejo MD at 12:08 EDT Tel , Service support , Critical care Teleneurology Operations: None, - - LAVH/RSO Procedures: Intubation Summary of Care Provided: The patient is a 49 year old F past medical history of bipolar disorder/ADHD/polysubstance use who comes in unresponsive. Patient lives in [place] and was came to [facility] to attend her niece's birthday libertarian. At a libertarian, she is reported to have drank lots of alcohol. She apparently went to bed around 12 midnight. She was found around 10 AM, on the floor, unresponsive. The EMS was called. Blood sugars were okay; in the 120s. She was given 2 mg Narcan intranasally. Patient had a pulse and was breathing spontaneously. In the ED, her GCS was 3 out of 15. She was emergently intubated for primary airway protection. Chest x-ray was unremarkable. CT scan of the brain showed no acute bleed. Patient was admitted to the ICU initially without any use of sedatives. A stat EEG was tested. Telemetry neurology was consulted and did not think patient had a seizure activity. They recommended repeat CT scan as patient has spinal stimulator and cannot do an MRI. Patient later on became febrile and had left lower leg seizure-like activity. She was resumed on propofol. Patient had a repeat tele-neurology consult. Status epilepticus could not be ruled out. Continuous video EEG monitoring was recommended. Patient was accepted at [facility] neuro ICU. Patient Problems: Active and Suspected Problems Coma (Acute) Metabolic acidosis (Acute) Encephalopathy acute (Acute) Subjective: See progress note Objective: See progress note - Physical Exam Vitals/I&O's: Vital Signs Temp Pulse Resp BP Pulse Ox 100.3 F H 121 H 26 H 159/103 H 97 02/27/20 08:00 02/27/20 12:00 02/27/20 11:00 02/27/20 11:00 02/27/20 11:00 Oxygen Flow Rate (L/min) 30 Oxygen Delivery Method Mechanical Ventilator Weight: 72.1 kg Body Mass Index (BMI) 24.7 Finger Stick Blood Glucose 158 Intake and Output for Last 24 Hours 02/25/20 02/26/20 02/27/20 23:59 23:59 23:59 Intake Total 1838.00 / 1851.40 5259.2033 / 5259.2033 Output Total 800 / 975 600 / 600 Balance 1038.00 / 876.40 4659.2033 / 4659.2033 Microbiology Past 72 Hours 02/27/20 02:00 Sputum, Induced/Lukens Gram Stain - Final Laboratory Results 02/26/20 12:00: Phosphorus 1.1 L*, Magnesium 2.1, TSH 1.67 02/26/20 12:00: Serum Osmolality Cancelled 02/26/20 12:00: Acetaminophen < 2.0 L 02/26/20 12:00: Total Bilirubin 0.20, Direct Bilirubin 0.08, AST 52 H, ALT 53, Alkaline Phosphatase 157 H, Total Protein 7.0, Albumin 3.4, Globulin 3.6 02/26/20 12:00: Miscellaneous Test Pending 02/26/20 13:09: Specimen Type ART, Sample Site R BRACHIAL, pH 7.22 L, Bicarbonate Actual 14.6 L, Total CO2 16, Base Excess -13 L, O2 Saturation 97, O2 % 30, ABG pCO2 35.3, ABG pO2 112 H, Valentino Test NA, Respiration Rate 12, O2 Delivery Device Vent, Vent Mode A-C, Tidal Volume 450, POC PEEP 3, Blood Gas Notified Whom ED 02/26/20 13:15: PT 13.4, INR 1.1, APTT 23.8 L 02/26/20 13:45: Lactic Acid 2.7 H* 02/26/20 13:45: Methyl Alcohol, Quant Cancelled 02/26/20 17:00: Sodium 149 H, Potassium 4.1, Chloride 122 H, Carbon Dioxide 17.0 L, Anion Gap 10, BUN 12, Creatinine 1.27 H, Estim Creat Clear Calc 50.16, Est GFR (MDRD) Af Amer 57 L, Est GFR (MDRD) Non-Af 47 L, BUN/Creatinine Ratio 9.4 L, Glucose 143 H, Calcium 8.0 L 02/26/20 17:00: Total Creatine Kinase 3626 H 02/26/20 17:00: Total Creatine Kinase 3607 H, Triglycerides 119 02/26/20 : Miscellaneous Test Pending 02/26/20 : Miscellaneous Test Pending 02/27/20 01:00: Lactic Acid 4.0 H* 02/27/20 01:00: Urine Color Straw, Urine Clarity Clear, Urine pH 7.0, Ur Specific [place] 1.010, Urine Protein Negative, Urine Glucose (UA) Normal, Urine Ketones Negative, Urine Occult Blood 25 H, Urine Nitrite Negative, Urine Bilirubin Negative, Urine Urobilinogen Normal, Ur Leukocyte Esterase Negative, Urine RBC 0 SEEN, Urine WBC 0 SEEN, Ur Squamous Epith Cells 0 SEEN, Urine Bacteria 0 SEEN, Urine Mucus 0 SEEN 02/27/20 04:20: WBC Cancelled, Corrected WBC Cancelled, RBC Cancelled, Hgb Cancelled, Hct Cancelled, MCV Cancelled, MCH Cancelled, MCHC Cancelled, RDW Std Deviation Cancelled, RDW Coeff of [place] Cancelled, Plt Count Cancelled, MPV Cancelled, Immature Gran % (Auto) Cancelled, Neut % (Auto) Cancelled, Lymph % (Auto) Cancelled, [place] % (Auto) Cancelled, Eos % (Auto) Cancelled, Baso % (Auto) Cancelled, Absolute Neuts (auto) Cancelled, Absolute Lymphs (auto) Cancelled, Total Counted Cancelled, Neutrophils % (Manual) Cancelled, Band Neutrophils % Cancelled, Lymphocytes % (Manual) Cancelled, Monocytes % (Manual) Cancelled, Eosinophils % (Manual) Cancelled, Basophils % (Manual) Cancelled, Metamyelocytes % Cancelled, Myelocytes % Cancelled, Promyelocytes % Cancelled, Blast Cells % Cancelled, Plasma Cell % (Manual) Cancelled, Other Cells % Cancelled, Nucleated RBC % Cancelled, Nucleated RBCs/100 WBC Cancelled, Differential Comment Cancelled, Diff Path Review Cancelled, Hypersegmented Neuts Cancelled, Atypical Lymphocytes Cancelled, Reactive Lymphocytes Cancelled, Smudge Cells Cancelled, Toxic Granulation Cancelled, Toxic Vacuolation Cancelled, Dohle Bodies Cancelled, Mohsen Rods Cancelled, Platelet Estimate Cancelled, Plt Morphology Comment Cancelled, RBC Morphology Cancelled, Polychromasia Cancelled, Hypochromasia Cancelled, Poikilocytosis Cancelled, Basophilic Stippling Cancelled, Anisocytosis Cancelled, Microcytosis Cancelled, Macrocytosis Cancelled, Spherocytes Cancelled, Sickle Cells Cancelled, Target Cells Cancelled, Tear Drop Cells Cancelled, Ovalocytes Cancelled, Stomatocytes Cancelled, [place] Bodies Cancelled, [place] Cells Cancelled, Bite Cells Cancelled, Crenated Cell Cancelled, Acanthocytes (Spur) Cancelled, Rouleaux Cancelled, Schistocytes Cancelled 02/27/20 04:20: Sodium Cancelled, Potassium Cancelled, Chloride Cancelled, Carbon Dioxide Cancelled, Anion Gap Cancelled, BUN Cancelled, Creatinine Cancelled, Estim Creat Clear Calc Cancelled, Est GFR (MDRD) Af Amer Cancelled, Est GFR (MDRD) Non-Af Cancelled, BUN/Creatinine Ratio Cancelled, Glucose Cancelled, Calcium Cancelled, Magnesium Cancelled, Total Bilirubin Cancelled, AST Cancelled, ALT Cancelled, Alkaline Phosphatase Cancelled, Total Protein Cancelled, Albumin Cancelled, Globulin Cancelled, Albumin/Globulin Ratio Cancelled 02/27/20 05:05: Lactic Acid 5.8 H* 02/27/20 05:05: Sodium 148 H, Potassium 2.8 L, Chloride 117 H, Carbon Dioxide 23.0, Anion Gap 8, BUN 8, Creatinine 0.92, Estim Creat Clear Calc 69.25, Est GFR (MDRD) Af Amer 83, Est GFR (MDRD) Non-Af 69, BUN/Creatinine Ratio 8.7 L, Glucose 130 H, Calcium 5.8 L*, Magnesium 1.3 L, Total Bilirubin 0.20, AST 53 H, ALT 39, Alkaline Phosphatase 99, Total Protein 4.3 L, Albumin 1.9 L, Globulin 2.4, Albumin/Globulin Ratio 0.8 L 02/27/20 05:05: WBC 16.1 H, RBC 3.49 L, Hgb 10.7 L, Hct 33.2 L, MCV 95.1, MCH 30.7, MCHC 32.2, RDW Std Deviation 53.3 H, RDW Coeff of [place] 15.5 H, Plt Count 211, MPV 9.9, Immature Gran % (Auto) 0.400, Neut % (Auto) 83.7 H, Lymph % (Auto) 8.4 L, [place] % (Auto) 7.4, Eos % (Auto) 0.0, Baso % (Auto) 0.1, Absolute Neuts (auto) 13.5 H, Absolute Lymphs (auto) 1.35, Nucleated RBC % 0 02/27/20 05:05: Phosphorus 2.8 02/27/20 07:00: Specimen Type ART, Sample Site R RADIAL, pH 7.48 H, Bicarbonate Actual 24.8, Total CO2 26, Base Excess 1, O2 Saturation 94 L, O2 % 21, ABG pCO2 33.6 L, ABG pO2 63 L, Valentino Test POS, Respiration Rate 12, O2 Delivery Device Vent, Vent Mode A-C, Tidal Volume 450, POC PEEP 5, Blood Gas Notified Whom ICU MD, Blood Gas Notified Time 700 02/27/20 08:30: Ammonia 33.0 H Current Medications Acetaminophen (Tylenol) 650 mg RECTAL Q6H PRN PRN PRN Reason: Temp > 100.7 Last Admin: 02/27/20 01:54 Dose: 650 mg Documented by: Chlorhexidine Gluconate () 15 ml PO BID JULIUS Last Admin: 02/27/20 11:51 Dose: 15 ml Documented by: Chlorhexidine Gluconate () 1 each TOPICAL DAILY JULIUS Last Admin: 02/27/20 11:51 Dose: 1 each Documented by: Heparin Sodium (Porcine) (Heparin Na) 5,000 unit SC Q8 JULIUS Last Admin: 02/27/20 05:34 Dose: 5,000 unit Documented by: Fentanyl Citrate 1,000 mcg/ (Sodium Chloride) 100 mls @ 5 mls/hr CONT INF .Q20H JULIUS; Protocol Last Titration: 02/27/20 11:15 Dose: 75 mcg/hr, 7.5 mls/hr Documented by: Propofol (Diprivan) 1,000 mg in 100 mls @ 4.326 mls/hr CONT INF .Q12H [facility]; Protocol Last Titration: 02/27/20 11:15 Dose: 10 mcg/kg/min, 4.3 mls/hr Documented by: Sodium Chloride () 250 mls @ 15 mls/hr IV .[id number] PRN PRN Reason: Saline Flush Sodium Chloride () 250 mls @ 15 mls/hr IV .[id number] PRN PRN Reason: Additional IVPB Infusion Piperacillin Sod/Tazobactam (Sod 3.375 gm/ Sodium Chloride) 50 mls @ 12.5 mls/hr IV Q8 [facility] Dextrose () 1,000 mls @ 100 mls/hr IV .Q10H JULIUS Last Admin: 02/27/20 08:47 Dose: 100 mls/hr Documented by: Levetiracetam 500 mg/ Sodium (Chloride) 105 mls @ 400 mls/hr IV Q12 [facility] Last Admin: 02/27/20 12:40 Dose: 400 mls/hr Documented by: Famotidine 20 mg/ Sodium (Chloride) 10 mls @ 300 mls/hr IV Q24 [facility] Last Infusion: 02/27/20 12:02 Dose: Infused Documented by: Lorazepam (Ativan) 2 mg IV Q2H PRN PRN PRN Reason: SEIZURES Last Admin: 02/26/20 21:29 Dose: 2 mg Documented by: Sodium Chloride () 10 - 40 ml IV UD PRN PRN Reason: SALINE FLUSH Last Admin: 02/27/20 11:51 Dose: 20 ml Documented by: Discharge Diet: - - NPO Home Medications: Medications to take at Discharge Amantadine [Symmetrel] 100 mg PO DAILY 09/28/18 Amantadine [Symmetrel] 200 mg PO QHS 09/28/18 Aripiprazole [Abilify] 10 mg PO DAILY 09/28/18 Dextroamphetamine/Amphetamine [Adderall 20 mg Tablet] 30 mg PO DAILY 09/28/18 Lorazepam [Ativan] 1 mg PO DAILY PRN PRN 09/28/18 Amitriptyline HCl [Elavil] 100 mg PO QHS 02/26/20 Gabapentin [Neurontin] 600 mg PO BIDCM 02/26/20 Primary Care Physician: Bryon Hall MD [Primary Care Provider] - Disposition: Acute care Hospital Minutes spent on discharge:: 55 Patient Condition:: Stable Medical Necessity - Tobacco Use Smoking Status: Former smoker Tobacco Use: Non-smoker Meaningful Use Info Meaningful Use Diagnoses (Choose all that apply): None applicable Inpatient E&M: 71746 Disch Hosp
[2020-02-27] MEDS: Propofol 10MG/Ml 1,000 MG/100 ML Bottle 8.7 MG CONT INF (14:23)
== END 2020-02-27 14:50 | disposition short-term general hospital (02) | DRG 52 ==
LOC: ED 13:31 → ICU 14:12
PROVIDERS: Hospitalist; Internal Medicine Critical Care Medicine; Physician Assistant; Admitting Provider Internal Medicine; Emergency Provider Emergency Medicine; PCP Family Medicine; Visit Provider Internal Medicine
DX: G92 Toxic encephalopathy (principal); J96.01 Acute respiratory failure with hypoxia; E87.2 Acidosis; R50.9 Fever, unspecified; E87.6 Hypokalemia; E83.42 Hypomagnesemia; E87.0 Hyperosmolality and hypernatremia; N17.9 Acute kidney failure, unspecified; N18.3 Chronic kidney disease, stage 3 (moderate); E83.39 Other disorders of phosphorus metabolism; I12.9 Hypertensive chronic kidney disease with stage 1 through stage 4 chronic kidney disease, or unspecified chronic kidney disease; Z87.891 Personal history of nicotine dependence; E66.9 Obesity, unspecified; R40.2430 Glasgow coma scale score 3-8, unspecified time; Z79.899 Other long term (current) drug therapy; Z86.73 Personal history of transient ischemic attack (TIA), and cerebral infarction without residual deficits; F31.9 Bipolar disorder, unspecified; F41.9 Anxiety disorder, unspecified; G89.4 Chronic pain syndrome; M54.9 Dorsalgia, unspecified; F90.9 Attention-deficit hyperactivity disorder, unspecified type; Z68.29 Body mass index [BMI] 29.0-29.9, adult; E87.1 Hypo-osmolality and hyponatremia
CPT/HCPCS: 31500; 31720; 36415; 36600; 70450; 70496; 70498; 71045; 74018; 80048; 80053; 80076; 80307; 80320; 80329; 81001; 82140; 82550; 82803; 83605; 83735; 84100; 84443; 84478; 84484; 85025; 85610; 85730; 87040; 87070; 87077; 87086; 87088; 87186; 87205; 87635; 93005; 94002; 94003; 95819; 97802; 99251; 99285; C9803; J7030; J7040; J7120; Q9967; A4216; G0463; G0480; J3010; J3490; U0003

== ENCOUNTER 2023-01-03 22:26 | Emergency (ER) | payer MEDICAID, SELFPAY ==
[2023-01-03 22:27] VITALS: BP 99/73; PULSE 75; RESP 16; TEMP 36.7; O2SAT 91; BMI 26.9
--- NOTE | 2023-01-03 22:32 | EDS_ITS ---
HPI History of Present Illness Chief Complaint: Suicidal [facility] Medical History (Updated 01/03/23 @ 22:34 by Dao Adam) Depression Home Medications amantadine HCl 100 mg capsule 100 mg PO DAILY depression/nreve pain 09/28/18 [History Last Taken 09/28/18] amantadine HCl 100 mg capsule 200 mg PO QHS depression/nerve pain 09/28/18 [History Last Taken 09/28/18] aripiprazole 10 mg tablet 10 mg PO DAILY depression 09/28/18 [History Last Taken 09/28/18] dextroamphetamine-amphetamine 20 mg tablet (Adderall) 30 mg PO DAILY ADHD 09/28/18 [History Last Taken 09/28/18] lorazepam 1 mg tablet 1 mg PO DAILY PRN PRN Anxiety 09/28/18 [History Last Taken 09/28/18] amitriptyline 100 mg tablet 100 mg PO QHS 02/26/20 [History Last Taken Unknown] gabapentin 600 mg tablet 600 mg PO BIDCM 02/26/20 [History Last Taken Unknown] Allergy/AdvReac Type Severity Reaction Status Date / Time tramadol Allergy Hives Verified 02/26/20 14:01 Social History Smoking Status: Former smoker EXAM Physical Exam Const Vital Signs: 01/03/23 22:27 Temperature 98.1 F Temperature Source Oral Pulse Rate 75 Respiratory Rate 16 Blood Pressure 99/73 Blood Pressure Mean 81 Pulse Ox 91 Oxygen Delivery Method Nasal Cannula Oxygen Flow Rate (L/min) 2 MDM MDM MDM Narrative Medical decision making narrative: HISTORY OF PRESENT ILLNESS: 52-year-old female here with suicide ideation status post attempting to cut both wrists. Per EMS patient was combative and received 10 mg of Haldol REVIEW OF SYSTEMS: Pertinent positives: [] Pertinent negatives: [] PHYSICAL EXAM: Nursing triage notes reviewed, Vital signs reviewed Constitutional: please see mdm HENT: MMM Eyes: Pupils equal round and reactive to light, Extraocular muscles intact Neck: No stridor, no JVD, full neck ROM Lungs: Clear to auscultation, No wheezing or rales. No increased work of breathing, no conversational dyspnea, no accessory muscle use, no nasal flaring. No respiratory distress noted Heart: Regular rate and rhythm, No murmurs, No rubs and No gallops, 2+ distal pulses (radial, femoral, posterior tibial) in all extremities Abdomen: Soft, there is no tenderness, rigidity, rebound or guarding, no obvious peritoneal signs, no palpable pulsatile abdominal masses, no auscultated abdominal bruit : No CVAT Extremities: No edema Neuro: No focal neurological deficits, cranial nerves II through XII intact, 5/5 strength in all extremities. Intact sensation to light touch in all extremities, 2+ reflexes bilateral patella tendons. Normal gait. No ataxia. Skin: No rash or lesions noted MEDICAL DECISION MAKING: Chief Complaint: [] External records reviewed: Last ED visit in 2019 for bipolar disorder Factors affecting care: Bipolar disorder, anxiety, hypertension, Social determinants of health: none [] History obtained from others: none [] Consults: none [] ALL IMAGES (IF OBTAINED) HAVE BEEN PERSONALLY REVIEWED AND INTERPRETED BY MYSELF. MDM Narrative: [] I considered the following differential diagnosis: [] [] The patient and/or family, caregivers express understanding. The patient and/or family, caregivers agrees with the plan. Total critical care time today provided was at least 0 [] minutes. This excludes separately billable procedures. Critical care time (if documented) is secondary to the patient having high probability of clinically significant/life threatening deterioration in the patient's condition which required my urgent intervention. Shared decision making: I will have a discussion with the patient and or visitors regarding risk/benefits of further testing or admission. They will be made aware of of the risk/benefits inherent in this decision they will be given the opportunity to voice understanding. Discharge Plan Triage Chief Complaint: Suicidal ED Provider: Destin Mustafa Dx/Rx/DC Orders Prescriptions: No Action amantadine HCl 100 MG capsule 100 mg PO DAILY amantadine HCl 100 MG capsule 200 mg PO QHS dextroamphetamine-amphetamine [Adderall] 20 MG tablet 30 mg PO DAILY lorazepam 1 MG tablet 1 mg PO DAILY PRN PRN (Reason: Anxiety) aripiprazole 10 MG tablet 10 mg PO DAILY gabapentin 600 MG tablet 600 mg PO BIDCM amitriptyline 100 MG tablet 100 mg PO QHS Primary Care Provider: Bryon Hall Referrals: Bryon Hall MD [Primary Care Provider] -
--- NOTE | 2023-01-03 22:42 | EX.ED.VIS.PS ---
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 Patient states that she tried to kill herself tonight both due to chronic and acute reasons. She has a history of depression anxiety and takes multiple meds for this. She did not take extra meds or pills today. There was an argument regarding her daughter's boyfriend her . She states he is not a good person. This patient ended up cutting her wrist while on a FaceTime talk with family members. Police and EMS were called. But evidently she took off and hit from them for about 2 and half hours. She was given Haldol. She was evidently initially combative but is better now. Patient does think of suicide. She is not having any physical complaints now. She never fell or hit her head. She does have lacerations on both forearms. Bleeding is controlled. Last tetanus is unknown. [facility] Medical History Depression Home Medications amantadine HCl 100 mg capsule 100 mg PO DAILY depression/nreve pain 09/28/18 [History Last Taken 09/28/18] amantadine HCl 100 mg capsule 200 mg PO QHS depression/nerve pain 09/28/18 [History Last Taken 09/28/18] aripiprazole 10 mg tablet 10 mg PO DAILY depression 09/28/18 [History Last Taken 09/28/18] dextroamphetamine-amphetamine 20 mg tablet (Adderall) 30 mg PO DAILY ADHD 09/28/18 [History Last Taken 09/28/18] lorazepam 1 mg tablet 1 mg PO DAILY PRN PRN Anxiety 09/28/18 [History Last Taken 09/28/18] amitriptyline 100 mg tablet 100 mg PO QHS 02/26/20 [History Last Taken Unknown] gabapentin 600 mg tablet 600 mg PO BIDCM 02/26/20 [History Last Taken Unknown] escitalopram oxalate 10 mg tablet 10 mg PO DAILY 01/03/23 [History Last Taken Unknown] trazodone 100 mg tablet 100 mg PO QHS 01/03/23 [History Last Taken Unknown] Allergy/AdvReac Type Severity Reaction Status Date / Time tramadol Allergy Hives Verified 01/03/23 22:39 Social History Smoking Status: Current every day smoker tobacco type: cigarettes ROS ROS ED Constitutional Constitutional ED: Denies fever(s) Eyes Eyes: Denies change in vision ENT ENT ED: Denies sore throat Cardiovascular Cardiovascular: Denies chest pain or palpitations Respiratory/Chest Respiratory/Chest: Denies cough or dyspnea Gastrointestinal Gastrointestinal: Denies abdominal pain, nausea or vomiting Musculoskeletal Musculoskeletal: Denies back pain Integumentary Reports other Details: Bilateral forearm lacerations Neurologic Neurologic: Denies headache(s) Psychiatric Psychiatric: Reports anxiety, depression, suicidal ideation and suicidal thoughts Hematologic/Lymphatic Hematologic/Lymphatic: Denies easy bleeding or easy bruising Allergic/Immunologic Allergic/Immunologic ED: Denies urticaria EXAM Physical Exam Narrative Exam Narrative: CONSTITUTIONAL: Patient is nontoxic in appearance. The patient looks comfortable. Work of breathing looks normal. She does sit with her eyes closed but talks immediately as I walk in the room. She is not lethargic. She HEENT: No notable trauma. Mucous membranes minimally dry. No sinus tenderness. No indication of pain with swallowing. EYES: No conjunctival injection. No proptosis. She does have very small pupils. NECK:No JVD. No stridor. CARDIOVASCULAR: Regular rate. Regular rhythm. No notable murmur. No JVD. Peripheral pulses are intact. RESPIRATORY: No respiratory distress. Breathing is unlabored. No wheezes. No rhonchi. No rales. No pain with a deep breath. No chest wall tenderness. She is off oxygen now and has a saturation about 94% showing no hypoxia. GASTROINTESTINAL: Not distended. Bowel sounds are normal. No tenderness. No guarding. No rebound. No palpable mass. No bruit is heard. GENITOURINARY: No tenderness over the bladder. No CVA tenderness. MUSCULOSKELETAL: No deformities. No pain with motion. However she does have laceration on the volar left forearm. We are unwrapping the right arm and cleaning up both of these so we can get better detailed exam of them. 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 No obvious sensory changes either. NEUROLOGICAL: Patient is alert and overall appropriate. She is consistent with her answers. She is somewhat subdued likely due to a combination of Haldol as well as alcohol that she drank tonight. She had a couple beers. SKIN: No noted rashes. No diaphoresis. PSYCHIATRIC: Patient is calm. Patient still admits to suicidal thoughts. Const Vital Signs: 01/03/23 22:27 01/03/23 23:26 01/04/23 00:26 Temperature 98.1 F Temperature Source Oral Pulse Rate 75 Respiratory Rate 16 20 H 18 Blood Pressure 99/73 Blood Pressure Mean 81 Pulse Ox 91 Oxygen Delivery Method Nasal Cannula Oxygen Flow Rate (L/min) 2 01/04/23 01:26 01/04/23 02:26 01/04/23 03:26 Temperature Temperature Source Pulse Rate Respiratory Rate 18 16 16 Blood Pressure Blood Pressure Mean Pulse Ox Oxygen Delivery Method Oxygen Flow Rate (L/min) 01/04/23 04:26 01/04/23 05:00 01/04/23 06:00 Temperature Temperature Source Pulse Rate 67 Respiratory Rate 18 18 16 Blood Pressure 108/85 H Blood Pressure Mean 92 Pulse Ox 98 Oxygen Delivery Method Room Air Oxygen Flow Rate (L/min) 01/04/23 08:00 01/04/23 09:00 01/04/23 10:00 Temperature Temperature Source Pulse Rate Respiratory Rate 14 14 16 Blood Pressure Blood Pressure Mean Pulse Ox Oxygen Delivery Method Oxygen Flow Rate (L/min) 01/04/23 11:00 Temperature Temperature Source Pulse Rate Respiratory Rate 16 Blood Pressure Blood Pressure Mean Pulse Ox Oxygen Delivery Method Oxygen Flow Rate (L/min) MDM MDM MDM Narrative Medical decision making narrative: Patient CBC is showing no marked abnormalities. Patient's electrolytes show minimally low potassium and bicarb with minimally elevated chloride. Creatinine is mildly up at 1.15 that should self correct. Glucose is mildly up at 137. This does not need acute treatment. Liver function test are overall normal other than minimal elevation of the alkaline phosphatase to 118. is negative. Alcohol is 243. Urine toxicology is pending. Tylenol and salicylates are pending. Once we get these results back, as long the patient is medically cleared we will have crisis see her. If 1 of these levels is markedly abnormal, she may need medical admission. But by her history she did not take these medicines. Procedure: Suture laceration left and right forearm Sequentially the forearms were scrubbed and draped. Total length was 4 cm. Left side was anesthetized with 4 cc of 1% lidocaine without epinephrine locally. It was then copiously scrubbed and irrigated. It was sutured with 7 running sutures of 4-0 Ethilon with good cosmesis and hemostasis. Patient tolerated this well. It was then cleansed afterwards and will be placed in a dressing. Attention was then directed to the right arm. This was unwrapped. We then did new cleaning of the area. It was anesthetized with 10 cc of 1% lidocaine locally with good anesthesia. Total length was approximately 16 cm. The distal 4 cm was shallow but did just have a small amount of opening. Proximally it open more. But there is no involvement of the tendons. I could see the surface of the tendons but there sheath and protective covering was not violated. I did copious scrubbing and further irrigation. No active bleeding. It was then sutured with 4 interrupted 4-0 Vicryl buried sutures to bring subcutaneous tissue together. We had a great deal of trouble having the patient hold still on both of these lacerations. This side was tougher. It was not that it was hurting her she would just fall asleep wake up and jerk and move her arms frequently. She would roll over toward the area. It was no longer safe to attempt suturing. We did use candi and placed a total of 19 candi in this laceration. I checked range of motion fingers afterwards and there does not appear to be any involvement of the tendons with candi. Clinically this would be unlikely due to the depth of the wound. She tolerated this well and dressings will be applied. After patient's alcohol came down, she did have crisis evaluation. They have arranged for placement and the patient is being transferred for ongoing care. Lab Data Attestation: I reviewed the patient's lab results. Labs: Laboratory Results - last 24 hr 01/03/23 01/04/23 01/04/23 23:00 01:00 05:58 WBC 6.9 RBC 4.79 Hgb 14.7 Hct 43.5 MCV 90.8 MCH 30.7 MCHC 33.8 RDW Std Deviation 46.5 H RDW Coeff of [place]az 13.9 Plt Count 201 MPV 10.9 Immature Gran % (Auto) 1.900 H Neut % (Auto) 58.9 Lymph % (Auto) 28.6 [place] % (Auto) 8.7 Eos % (Auto) 1.2 Baso % (Auto) 0.7 Absolute Neuts (auto) 4.1 Absolute Lymphs (auto) 1.97 Nucleated RBC % 0 Sodium 143 Potassium 3.3 L Chloride 116 H Carbon Dioxide 18.0 L Anion Gap 9 BUN 14 Creatinine 1.15 H Estim Creat Clear Calc 49.41 Est GFR (MDRD) Af Amer 64 Est GFR (MDRD) Non-Af 53 L BUN/Creatinine Ratio 12.2 Glucose 137 H Calcium 8.5 Total Bilirubin 0.20 AST 30 ALT 42 Alkaline Phosphatase 118 H Total Protein 7.6 Albumin 3.6 Globulin 4.0 Albumin/Globulin Ratio 0.9 Serum , Qual NEGATIVE Salicylates 4.1 Urine Opiates Screen NEGATIVE Urine Methadone Screen NEGATIVE Acetaminophen < 2.0 L Ur Barbiturates Screen NEGATIVE Ur Phencyclidine Scrn NEGATIVE Ur Amphetamines Screen NEGATIVE MDMA (Ecstasy) Screen NEGATIVE U Benzodiazepines Scrn NEGATIVE Urine Cocaine Screen NEGATIVE U Cannabinoids Screen NEGATIVE Ur Drug Screen Comment Ethyl Alcohol 243.0 99.0 EKG Initial EKG: Comments: Plan up and interpretation the patient's x-ray shows a normal sinus rhythm. No ventricular ectopy. Overall rate is 85. No acute ST elevation or depression. No preexcitation. PA interval and QRS duration are within normal limits. QTc is mildly long at 487. Management Discussion w/another healthcare provider: Hospitalist and Director Federal Discharge Plan Triage Chief Complaint: Bite ED Provider: José Miguel Ramachandran Dx/Rx/DC Orders Clinical Impression: Alcohol intoxication, Suicide attempt, Laceration of forearm, left, Laceration of forearm, right, Sutured skin wound Prescriptions: No Action amantadine HCl 100 MG capsule 100 mg PO DAILY amantadine HCl 100 MG capsule 200 mg PO QHS dextroamphetamine-amphetamine [Adderall] 20 MG tablet 30 mg PO DAILY lorazepam 1 MG tablet 1 mg PO DAILY PRN PRN (Reason: Anxiety) aripiprazole 10 MG tablet 10 mg PO DAILY gabapentin 600 MG tablet 600 mg PO BIDCM Hold Instructions: MED CHANGED amitriptyline 100 MG tablet 100 mg PO QHS trazodone 100 mg tablet 100 mg PO QHS escitalopram oxalate 10 mg tablet 10 mg PO DAILY Primary Care Provider: Bryon Hall Referrals: Bryon Hall MD [Primary Care Provider] - Disposition Disposition: Psychiatric Hospital or Unit Discharge Location: [facility] Discharge Date/Time: 01/04/23 12:01
[2023-01-03 23:26] VITALS: RESP 20
[2023-01-03 23:34] LABS: Absolute Lymphocyte Count 1.97 X10^3/uL (0.83-4.51); Absolute Neutrophil Count 4.1 X10^3/uL (2.0-7.7); Basophil# 0.05 X10^3/uL; Basophil% 0.7 % (0-1); Eosinophil# 0.08 X10^3/uL; Eosinophils% 1.2 % (0-5); Hematocrit 43.5 % (37-47); Hemoglobin 14.7 g/dL (12.0-15.0); Lymphocyte # 1.97 X10^3/ul (0.83-4.51); Lymphocyte % 28.6 % (19-41); Mean Corp Hgb Conc 33.8 g/dL (32-36); Mean Corpuscular Hgb 30.7 pg (27.0-32.0); Mean Corpuscular Volume 90.8 fL (81-99); Mean Platelet Vol. 10.9 fl (6.2-12.0); Monocyte% 8.7 % (0-10); NRBC Flagged by Analyzer 0 % (0-5); Neutrophil # 4.05 X10^3/uL (2.7-7.7); Neutrophil % 58.9 % (47-70); Platelet Count 201 K/mm3 (150-450); RBC Distribution Width CV 13.9 % (11.6-14.6); RBC Distribution Width SD 46.5 fl (35.1-43.9); Red Blood Count 4.79 M/mm3 (4.2-5.4); White Blood Count 6.9 K/mm3 (4.4-11.0)
[2023-01-03 23:37] LABS: ALB/GLOB Ratio 0.9 RATIO (0.9-2.4); AST(SGOT) 30 U/L (15-37); Alanine Aminotransfer ALT/SGPT 42 U/L (13-56); Albumin, Serum 3.6 g/dL (3.2-5.0); Alkaline Phosphatase 118 U/L (45-117); Anion Gap 9 (5-15); BUN 14 mg/dL (7-18); BUN/Creat Ratio 12.2 RATIO (10-20); Calcium,Total 8.5 mg/dL (8.5-10.1); Chloride 116 mmol/L (98-107); Creatinine, Serum 1.15 mg/dL (0.55-1.02); EST Glomerular Filtration Rate 53 mL/min (>60); Est Glom Filt Rate - Afr Amer 64 mL/min (>60); Estimated Creatinine Clearance 49.41 ml/min; Glucose 137 mg/dL (74-106); Potassium 3.3 mmol/L (3.5-5.1); Protein, Total 7.6 g/dL (6.4-8.2); Sodium Level 143 mmol/L (136-145)
[2023-01-03 23:49] LABS: Internal QC Validated? YES +Cl - CLEAR BKGD; Pregnancy, Serum, hCG Quali. NEGATIVE Negative
[2023-01-04] VITALS (11 sets, daily range): BP systolic 108; BP diastolic 85; PULSE 67; RESP 14–18; O2SAT 98
[2023-01-04] MEDS: Lidocaine 1% (20 ml mdv) 20 ML Vial INFILT (00:30)
[2023-01-04] MEDS: Diphth,Pertuss(Acell),Tet Vac 0.5 ML Vial IM (00:30)
[2023-01-04 00:32] LABS: Acetaminophen (Tylenol) Level < 2.0 ug/mL (10.0-30.0); Salicylate 4.1 mg/dL (2.8-20.0)
[2023-01-04 01:55] LABS: Amphetamine Urine VISTA NEGATIVE (<1000 ng/mL); Barbiturate Urine VISTA NEGATIVE (< 200 ng/mL); Benzodiazepine Urine VISTA NEGATIVE (< 200 ng/mL); Cocaine Urine VISTA NEGATIVE (< 300 ng/mL); Ecstacy Urine VISTA NEGATIVE (< 500 ng/mL); Methadone Urine VISTA NEGATIVE (< 300 ng/mL); PCP Urine VISTA NEGATIVE (< 25 ng/mL); THC Urine VISTA NEGATIVE (< 50 ng/mL); Vista UDS pH Range 6
--- NOTE | 2023-01-04 08:38 | ED.RN ---
ekg, pink slips and chart faxed at this time to crisis. pt is pending at [facility]
--- NOTE | 2023-01-04 10:07 | ED.RN ---
accepted at [facility]. no room or unit at this time. ok to call report.
--- NOTE | 2023-01-04 10:24 | ED.RN ---
spoke with ariella at physicians at 1009, 90 min eta.
--- NOTE | 2023-01-04 12:13 | ED.RN ---
rn report given at this time with no questions or concerns.
== END 2023-01-04 12:01 ==
PROVIDERS: Emergency Medicine; Emergency Provider Emergency Medicine; PCP Family Medicine; Visit Provider Emergency Medicine
DX: S51.812A Laceration without foreign body of left forearm, initial encounter (principal); F10.129 Alcohol abuse with intoxication, unspecified; X78.1XXA Intentional self-harm by knife, initial encounter; F17.210 Nicotine dependence, cigarettes, uncomplicated; S51.811A Laceration without foreign body of right forearm, initial encounter; F32.A Depression, unspecified; Z79.899 Other long term (current) drug therapy; Z23 Encounter for immunization; F41.9 Anxiety disorder, unspecified
CPT/HCPCS: 12035; 36415; 80053; 80307; 80329; 82077; 84703; 85025; 87811; 90471; 90715; 93005; 99285; G0480

== ENCOUNTER → 2024-02-17 | Outpatient (CLI) | payer MEDICAID, SELFPAY ==
--- NOTE | 2024-02-17 14:11 | CT_ITS ---
STUDY: CT LUMBAR SPINE WITH CONTRAST REASON FOR EXAM: Female, 53 years old. Low back pain. RADIATION DOSAGE (If Supplied By Facility): CTDIvol = ( 15.67 ) mGy, DLP = ( 514.33 ) mGycm TECHNIQUE: The patient was scanned in a multi detector CT scanner. High resolution transaxial imaging was performed following the intravenous administration of IV 100mL Isovue-300. Images were obtained from L1 to S1 vertebral level. Sagittal and coronal images were reconstructed. Individualized dose optimization techniques were used for this CT. COMPARISON: Comparison is made with prior abdomen examination dated August 28, 2023. FINDINGS: There is straightening of the normal lumbar lordosis. There is no substantial scoliosis. Normal vertebrae of the lumbar spine. L1-2: Mild degree of disc space narrowing. L2-3: Mild degree of disc space narrowing. L3-4: Mild degree of disc space narrowing. No evidence of spinal stenosis. L4-5: Moderate degree of disc space narrowing with disc degeneration. Posterior central disc herniation causing deformity of the thecal sac centrally. Hypertrophy of the ligamenta flava as well as the facet joints suggestive of bilateral neural foraminal stenosis and central canal stenosis. L5-S1: Grade 1 anterolisthesis of L5 on S1. Mild degree of disc space narrowing and disc degeneration. Facet joint osteoarthritis and hypertrophy worse on the right side. Status post left laminectomy. There is a 1.3 cm cyst in the lateral aspect of the right kidney. Multiple bilateral nonobstructive intrarenal calculi are seen. CT/Spine Lumbar WITH Contrast IMPRESSION: Spinal stenosis at the L4-L5 level as described. Electronically Signed: Rivera Blakely MD at 15:12 EDT ,
== END | disposition home or self-care (01) ==
LOC: CT 14:10
PROVIDERS: PCP Family Medicine; Referring Provider Orthopaedic Surgery Orthopaedic Surgery of the Spine; Visit Provider Orthopaedic Surgery Orthopaedic Surgery of the Spine
DX: M43.16 Spondylolisthesis, lumbar region (principal); M53.2X6 Spinal instabilities, lumbar region
CPT/HCPCS: 72132; Q9967

== ENCOUNTER → 2024-02-29 | Outpatient (CLI) | payer MEDICAID, SELFPAY ==
--- NOTE | 2024-02-29 12:33 | MRI_ITS ---
EXAM: MR LUMBAR SPINE WITHOUT INTRAVENOUS CONTRAST CLINICAL INDICATION: Pain -- Iatrogenic facet fracture -- severe low back pain x 1-2 years radiating into L leg TECHNIQUE: Multiplanar and multisequence MR images of the lumbar spine without intravenous contrast. COMPARISON: CT lumbar spine 02/17/2024, MR Lumbar Spine dated 09/12/2016 FINDINGS: VERTEBRAE: Transitional vertebra noted with assumption of riblets at the L1 level. Normal vertebral body height. No bone marrow edema. SPINAL CORD: Normal. Normal position and signal intensity of the conus medullaris. SOFT TISSUES: Normal. DISCS/SPINAL CANAL/NEURAL FORAMINA: L1-L2: Normal. Normal disc height and morphology. Normal spinal canal and lateral recesses. Normal neuroforamina. L2-L3: Normal. Normal disc height and morphology. Normal spinal canal and lateral recesses. Normal neuroforamina. L3-L4: Normal. Normal disc height and morphology. Normal spinal canal and lateral recesses. Normal neuroforamina. L4-L5: Moderate narrowing of the intervertebral disc persistent central disc protrusion. Ligamentous hypertrophy and mild facet arthropathy. Changes result in mild to moderate spinal stenosis. Intact neural foramina. L5-S1: Surgical resection of the inferior left L5 facet. Prominent hypertrophic changes of the right facet. Interval development of mild anterior listhesis of L5 on S1. There is moderate disc space narrowing and vacuum disc phenomenon associated with lytic type II endplate changes. Broad-based disc protrusion without significant spinal stenosis. Severe stenosis of the left neural foramen related to the bony hypertrophy. Mild narrowing of the right neural foramen. MRI/Spine Lumbar (Routine) IMPRESSION: Degenerative changes at L4-5 and L5-S1 resulting in mild to moderate spinal stenosis at L4-5 and severe left L5-S1 neural foraminal narrowing. Electronically Signed: Phi Granados MD at 11:27 EDT ,
== END | disposition home or self-care (01) ==
LOC: MRI 12:24
PROVIDERS: PCP Family Medicine; Referring Provider Orthopaedic Surgery Orthopaedic Surgery of the Spine; Visit Provider Orthopaedic Surgery Orthopaedic Surgery of the Spine
DX: S32.009A Unspecified fracture of unspecified lumbar vertebra, initial encounter for closed fracture (principal); X58.XXXA Exposure to other specified factors, initial encounter
CPT/HCPCS: 72148

== ENCOUNTER 2024-05-11 11:57 | Inpatient (IN) | payer MEDICAID, SELFPAY ==
--- NOTE | 2024-04-29 08:32 | EKG12_ITS ---
Test Reason : PREOP Blood Pressure : */* mmHG Vent. Rate : 92 BPM Atrial Rate : 92 BPM P-R Int : 156 ms QRS Dur : 78 ms QT Int : 366 ms P-R-T Axes : 61 29 47 degrees QTcB Int : 452 ms Normal sinus rhythm Normal ECG Confirmed by TONIO ALVARENGA ([id number]), manuscript editor LOUIE MENDEZ ([id number]) on 04/29/2024 11:51:26 AM Referred By: Buck Guerrero Confirmed By: TONIO ALVARENGA
[2024-04-29 09:37] LABS: Absolute Lymphocyte Count 2.29 X10^3/uL (0.83-4.51); Absolute Neutrophil Count 4.4 X10^3/uL (2.0-7.7); Basophil# 0.04 X10^3/uL; Basophil% 0.5 % (0-1); Eosinophil# 0.31 X10^3/uL; Eosinophils% 4.2 % (0-5); Hematocrit 41.5 % (37-47); Hemoglobin 14.4 g/dL (12.0-15.0); Lymphocyte # 2.29 X10^3/ul (0.83-4.51); Lymphocyte % 30.7 % (19-41); Mean Corp Hgb Conc 34.7 g/dL (32-36); Mean Corpuscular Hgb 30.4 pg (27.0-32.0); Mean Corpuscular Volume 87.6 fL (81-99); Mean Platelet Vol. 9.9 fl (6.2-12.0); Monocyte# 0.43 X10^3/uL; Monocyte% 5.8 % (0-10); NRBC Flagged by Analyzer 0 % (0-5); Neutrophil # 4.37 X10^3/uL (2.7-7.7); Neutrophil % 58.5 % (47-70); Platelet Count 243 K/mm3 (150-450); RBC Distribution Width CV 13.2 % (11.6-14.6); RBC Distribution Width SD 42.1 fl (35.1-43.9); Red Blood Count 4.74 M/mm3 (4.2-5.4); White Blood Count 7.5 K/mm3 (4.4-11.0)
[2024-04-29 10:00] LABS: Anion Gap 7 (5-15); BUN 11 mg/dL (7-18); BUN/Creat Ratio 9.1 RATIO (10-20); Chloride 113 mmol/L (98-107); Creatinine, Serum 1.21 mg/dL (0.55-1.02); EST Glomerular Filtration Rate 49 mL/min (>60); Est Glom Filt Rate - Afr Amer 60 mL/min (>60); Glucose 162 mg/dL (74-106); Potassium 3.3 mmol/L (3.5-5.1); Sodium Level 141 mmol/L (136-145)
[2024-04-29 10:38] LABS: HIV - WCH Non-Reactive (Nonreactive); Hepatitis B Surface Antibody Non-Reactive; Hepatitis C Antibody Non-Reactive (Nonreactive)
[2024-04-29 14:52] LABS: Magnesium 1.9 mg/dL (1.6-2.6)
[2024-04-30 05:07] LABS: Hepatitis A AB, Total Negative (Negative)
[2024-05-11] VITALS (15 sets, daily range): BP systolic 112–156; BP diastolic 62–102; PULSE 67–102; RESP 11–18; TEMP 36.1–37.1; O2SAT 89–100; BMI 27.2
[2024-05-11] MEDS: Magnesium 1 GM over 15 mins IV (06:02)
[2024-05-11] MEDS: Acetaminophen 500 MG Tablet 1000 MG PO ×2 (06:03→21:32)
[2024-05-11] MEDS: Lactated Ringers 1,000 ML 15 ML IV ×2 (06:04→13:42)
[2024-05-11] MEDS: Insulin Lispro 100 UNIT/ML INSULN.PEN SC (06:29)
[2024-05-11 06:36] LABS: Bedside Glucose 265 mg/dL (74-106)
--- NOTE | 2024-05-11 07:09 | PRE.ANES_ITS ---
ASA Classification* ASA Classification ASA Classification: 2 Assessment & Plan Anesthesia* Anesthesia Assessment Anesthesia Assessment: Discussed sedation and/or anesthesia options, risks, benefits, and alternatives with patient/parents/legal guardian/POA. Questions invited. The patient/parents/legal guardian/POA seems to understand and agrees to proceed with anesthesia plan. Reviewed the physical assessment, medical history, allergy history and patient home medications list prior to surgery/procedure/anesthetic and documented any changes. Performed airway and anesthesia risk assessments. Anesthesia Type Anesthesia Type: General (Limited ROM neck. suggest glidescope) Anesthesia Focused Assessment* Temperature: 98.1 F Pulse Rate: 84 Blood Pressure: 114/69 Respiratory Rate: 16 Pulse Ox: 98 Airway Assessment Mouth opens: >3 cm Mallampati Score: II Focused Labs Anesthesia Preop lab: CBC WBC 7.5 K/mm3 (4.4-11.0) 04/29/24 08:51 RBC 4.74 M/mm3 (4.2-5.4) 04/29/24 08:51 Hgb 14.4 g/dL (12.0-15.0) 04/29/24 08:51 Hct 41.5 % (37-47) 04/29/24 08:51 Plt Count 243 K/mm3 (150-450) 04/29/24 08:51 CHEMISTRY Potassium 3.3 mmol/L (3.5-5.1) L 04/29/24 08:51 Sodium 141 mmol/L (136-145) 04/29/24 08:51 Magnesium 1.9 mg/dL (1.6-2.6) 04/29/24 08:51 Phosphorus 2.8 mg/dL (2.5-4.9) 02/27/20 05:05 BUN 11 mg/dL (7-18) 04/29/24 08:51 Creatinine 1.21 mg/dL (0.55-1.02) H 04/29/24 08:51 Glucose 162 mg/dL (74-106) H 04/29/24 08:51 POC Glucose 265 mg/dL (74-106) H 05/11/24 05:58 TSH 1.67 uIU/mL (0.358-3.74) 02/26/20 12:00 COAG PT 13.4 SECONDS (11.7-14.9) 02/26/20 13:15 Pre-Assessment Diagnosis/Proposed Procedure Planned Operative Procedure(s): 360 Lumbar Fusion L4-5 and L5-S1 Anesthesia History 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 When Was Last Pacemaker Check QUESTION #4 FULL TEXT: You/Your Family Experience fever (hyperthermia) with Anesthesia Last Oral Intake Last Oral intake: Last Oral Intake NPO since 05:00 05/11/24 06:06 Meds taken in AM with sips of No 05/11/24 06:06 water? 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 Female Yes 04/27/24 15:14 HX of Motion Sickness No 04/27/24 15:14 HX of N/V After Surgery No 04/27/24 15:14 Non-Smoker Yes 04/27/24 15:14 Duration of Surgery greater Yes 04/27/24 15:14 than 60 minutes Number of Risk Factors 3 04/27/24 15:14 PONV Score Moderate Risk 04/27/24 15:14 Height & Weight Height & Weight: Anesthesia: Height & Weight Height 5 ft 4 in 05/11/24 06:06 Weight: 72 kg 05/11/24 06:06 Body Mass Index (BMI) 27.2 05/11/24 06:06 Respiratory Assessment Respiratory Assessment - roads and parking lots sweeper operator: Respiratory Tract Infection Hx - roads and parking lots sweeper operator Hx Respiratory Tract Infection No 04/27/24 15:14 STOP Sleep Apnea STOP Sleep Apnea - roads and parking lots sweeper operator: STOP Sleep Apnea - roads and parking lots sweeper operator Hx Hypertension Yes: CONTROLLED WITH MED 04/27/24 15:14 Hx Sleep Apnea Yes 04/27/24 15:14 CPAP Yes: NON COMPLAINT, LOST 04/27/24 15:14 MACHINE BIPAP No 04/27/24 15:14 Do you snore loudly (louder than talking or can be heard Do you often feel tired/ fatigued/ sleepy during daytime? Has anyone observed you stop breathing during sleep? STOP Results Positive 04/27/24 15:14 QUESTION #5 FULL TEXT : Do you snore loudly (louder than talking or can be heard through closed doors)? 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 Specify any problems Hx of Preganancy in last 3 N/A 04/27/24 15:14 Months Nurse Filling Out Transfusion NBUCHER 04/27/24 15:14 & Questions: Date: 04/27/24 04/27/24 15:14 Time: 15:15 04/27/24 15:14 Patient unable to answer at this time (ie. confused, unrespo /Reproduction History /Reproductive History - roads and parking lots sweeper operator: /Reproductive Hx- roads and parking lots sweeper operator Hx Now No 04/27/24 15:14 Gestational Age (in weeks): EDC: Hx Hx Para Hx Section SAB No 04/27/24 15:14 Active Medications Active Medications: Current Medications Generic Name Dose Route Start Last Admin Trade Name Freq PRN Reason Stop Dose Admin Acetaminophen 1,000 mg 05/11/24 07:30 05/11/24 06:03 Acetaminophen 500 Mg Tablet PO 05/11/24 07:31 1,000 mg X1 ONE Administration Magnesium Sulfate 1 gm/ 102 mls @ 408 mls/hr 05/11/24 07:30 05/11/24 06:02 Dextrose IV 05/11/24 07:44 408 mls/hr X1 ONE Administration Cefazolin Sodium 2 gm/ N/A 20 mls @ 400 mls/hr 05/11/24 07:30 IV 05/11/24 07:32 PREOP ONE Tranexamic Acid 1,000 mg/ 110 mls @ 660 mls/hr 05/11/24 07:30 Sodium Chloride IV 05/11/24 07:39 X1 ONE Tranexamic Acid 1,000 mg/ 110 mls @ 660 mls/hr 05/11/24 07:30 Sodium Chloride IV 05/11/24 07:39 X1 ONE Lactated Ringer's 1,000 mls @ 15 mls/hr 05/11/24 06:15 05/11/24 06:04 IV 05/16/24 19:34 15 mls/hr .Q48H JULIUS Administration Protocol Insulin Human Lispro 1 - 6 unit 05/11/24 07:30 05/11/24 06:29 Insulin Lispro 100 Unit/Ml Insuln.Pen SC 05/11/24 18:00 3 units Q4H PRN PRN Administration BG>/= 180, SEE PROTOCOL Protocol PFSH Medical History Wears dentures Bipolar disorder Anxiety Walker as ambulation aid High cholesterol Former smoker CPAP (continuous positive airway pressure) dependence Sleep apnea Leg cramps Depression Home Medications ?Medication ?Instructions ?Recorded ?Last Taken ?Type aripiprazole 10 mg tablet 10 mg PO DAILY depression 09/28/18 05/10/24 History dextroamphetamine-amphetamine 20 30 mg PO DAILY ADHD 09/28/18 05/10/24 History mg tablet (Adderall) escitalopram oxalate 10 mg tablet 10 mg PO DAILY ANXIETY 01/03/23 05/10/24 History trazodone 100 mg tablet 100 mg PO QHS SLEEP 01/03/23 05/10/24 History amlodipine 5 mg tablet 5 mg PO QDAY HTN 10/22/23 05/10/24 History rosuvastatin 10 mg tablet 10 mg PO QHS HLD 10/22/23 05/10/24 History Allergy/AdvReac Type Severity Reaction Status Date / Time risperidone Allergy Hives Verified 05/11/24 06:06 tramadol Allergy Hives Verified 05/11/24 06:06 Surgical History H/O laminectomy H/O neck surgery History of back surgery S/P complete hysterectomy Social History Smoking Status: Former smoker Tobacco: How many years used: 40 how long ago did patient quit smokin weeks ago alcohol intake: never Review of Systems (Anesthesia) ROS Narrative System reviewed and no additional complaints, except as documented.
--- NOTE | 2024-05-11 07:28 | HP.PCM_ITS ---
History and Physical Date of Admission: 05/11/24 MR#: [id number] Acct: [id number] Name: HALEY PULLIAM Rep #: [id number] : 1970 Provider: Dr. Buck Guerrero MD Age/Sex: 54/F Location: [facility] [place] Status: Signed Intake Vital Signs 10/21/2412:01 05/03/2410:37 Height 5 ft 4 in 5 ft 4 in Weight: 160 lb BMI 27.4 Intake Visit Reasons: lumbar spine Accompanied by: Other Family Is patient in pain?: Yes Pain scale (1-10): 7 Allergies risperidone Allergy (Verified 05/03/24 10:42) Hivestramadol Allergy (Verified 05/03/24 10:42) Hives Medications ?Medication ?Instructions ?Recorded ?Confirmed ?Type aripiprazole 10 mg tablet 10 mg PO DAILY depression 09/28/18 05/03/24 History dextroamphetamine-amphetamine 20 30 mg PO DAILY ADHD 09/28/18 05/03/24 History mg tablet (Adderall) escitalopram oxalate 10 mg tablet 10 mg PO DAILY ANXIETY 01/03/23 05/03/24 History trazodone 100 mg tablet 100 mg PO QHS SLEEP 01/03/23 05/03/24 History amlodipine 5 mg tablet 5 mg PO QDAY HTN 10/22/23 05/03/24 History rosuvastatin 10 mg tablet 10 mg PO QHS HLD 10/22/23 05/03/24 History PFSH Medical History Wears dentures Bipolar disorder Anxiety Walker as ambulation aid High cholesterol Former smoker CPAP (continuous positive airway pressure) dependence Sleep apnea Leg cramps Depression Surgical History H/O laminectomy H/O neck surgery History of back surgery S/P complete hysterectomy Social History Smoking Status: Former smoker Tobacco: How many years used: 40 how long ago did patient quit smokin weeks ago alcohol intake: never HPI lumbar spine Details: This documentation accurately reflects the service provided and the decisions made by me, Dr. Buck Guerrero MD 05/03/24 1037. Part of today?s visit was documented by Elisabet CASAS , acting as scribe. HALEY PULLIAM is a 54 year old F here today for a pre-op dos 05/11/2024. Patient is having a 360 Lumbar Fusion L4-5 L5-S1. Last a1c was 5.9 four months ago. No blood thinners. HPI from 03/29/24: HALEY PULLIAM is a 54 year old F here today for a MRI Review. Patient is having a lot of nerve pain in the left side now. Patient states it does fluctuate between the two sides. Patient can't bend over to shave her legs, or stand a the sink to do dishes due to the pain. Patient can't walk short distances. Last injection over a year ago. HPI from 01/21/24: HALEY PULLIAM is a 53 year old F here today for low back pain followup. Patient notes that she continues to have low back pain. She states that she has radiating pain into her right leg into her calf. She had her dorsal column stimulator and battery removed on 12/22/23. Patient has a history of 2 lumbar laminectomies. She has increased pain with prolonged sitting, standing or laying. Patient has tried tylenol and ibuprofen with no relief. She denies any MRI. Her insurance company denied an MRI stating she needed a CT scan although she had a CT scan prior to her last appointment with Dr Anaya. Haley has seen Dr. Anaya in the past. She has had 2 surgeries which she remembers to be a few months apart in 2017 by different surgeon. These are likely decompression surgeries at L5-S1. She started off with partial foot drop on the right side which improved to some extent after the first surgery but did not improve completely. It is unknown as to why she had a second surgery in the same level. She continued to have severe right worse than left lower extremity radiating pain. Right now her axial back pain is worse. She has had physical therapy and injections in the past. She underwent a spinal cord stimulator placement in 2018 which was removed 4 weeks ago as it was MRI incompatible. Ortho Exam General General: Yes no acute distress Neurologic: Yes alert and Yes oriented x3 Spine SPINE TESTING CERVICAL THORACIC LUMBAR Musculoskeletal Strength 0=absent - 5=normal Details: Examination the back shows midline and small paramedian incision in the lower lumbar spine towards the right. Spinal cord stimulator battery incision is in the lateral abdominal region. No upper lumbar or lower thoracic scars. Severe midline and right paraspinal tenderness to lower lumbar spine. Neurologic evaluation of lower extremity shows 5 x 5 power in all muscle except for bilateral ankle dorsiflexion and EHL which are grade 4. Passive straight leg raise test is positive on both sides. Coding Level of Care Code Off vis,est,level 4 Diagnoses Foot drop, bilateral M21.371; M21.372 Spondylolisthesis, lumbar region M43.16 Time Spent (min) 35 Assessment and Plan Assessment and Plan (1) Foot drop, bilateral: Status: Acute (2) Spondylolisthesis, lumbar region: Status: Acute Plan Again reviewed prior imaging. X-rays show L4-5 and L5-S1 disc height loss and L5-S1 shows grade 1 spondylolisthesis which is unstable on dynamic views. MRI from 02/29/24 shows degenerative changes at L4-5 and L5-S1 resulting in mild to moderate spinal stenosis at L4-5 and severe left L5-S1 neural foraminal narrowing. Again reviewed previous CT scan which shows prior left L5-S1 decompression with possible iatrogenic facet resection and associated instability. Reviewed the benefits and risks of surgery. Plan is to undergo L4-S1 anterior posterior fusion with indirect decompression. Risks of surgery include bleeding, infection, visceral injury, ileus, hardware failure, pseudoarthrosis, adjacent segment degeneration, pneumonia, DVT, pulmonary embolism, atelectasis, gait abnormality, persistent pain, stretch injuries, chance for future surgeries. Patient understands and agrees to proceed with surgery. Explained in detail the procedure of the lumbar fusion. Discussed post surgery restrictions such as no bending, lifting, or twisting. Answered all questions that she had today in preparation for surgery. Consent was signed. Patient is in agreement.
[2024-05-11] MEDS: Cefazolin 2 GM in Syringe IV ×3 (07:45→21:31)
--- NOTE | 2024-05-11 07:47 | RAD_ITS ---
PROCEDURE: Intraoperative fluoroscopic services for lumbar fusion. DATE OF EXAMINATION: May 11, 2024. INDICATION: Female, 54 years old. Lumbar fusion. FLUOROSCOPY TIME (if supplied): (1 minute and 2 seconds) minutes/seconds. 33.86 mGy. RAD/Lumbar Spine 2 or 3 Views IMPRESSION: Intraoperative fluoroscopic services provided for fusion at the L4-L5 and L5-S1 levels. Electronically Signed: Rivera Blakely MD at 12:13 EST ,
[2024-05-11] MEDS: TXA 1000mg in NS100 100ml (IVPB at Incision) 660 MG IV (07:48)
[2024-05-11] MEDS: TXA 1000mg in NS100 100ml (IVPB at Closure) 660 MG IV (11:22)
[2024-05-11] MEDS: Ropivacaine 0.5% 30 ML Vial (11:46)
--- NOTE | 2024-05-11 12:15 | PCM.POST.ANE ---
Anesthesia: Postop Eval I Current Vital Signs Temperature: 97.2 F Pulse Rate: 102 Blood Pressure: 143/102 Respiratory Rate: 16 Pulse Ox: 100 Oxygen Delivery Method: Simple Mask Oxygen Flow Rate (L/min): 6 Assessment Airway patent: No Spontaneous unlabored respirations: No Mental status: Awake nausea: No Vomiting: No Anesthesia Complication: No Fluid Hydration Crystalloid volume administer (ml): 1,000 Total IV fluid infused: 1,000 Progress Note Anesthesia document: Postop Eval 1 completed: Yes
[2024-05-11 13:31] LABS: Bedside Glucose 151 mg/dL (74-106)
--- NOTE | 2024-05-11 13:42 | POSTOPAN2_ITS ---
Anesthesia Postop Eval I Sum Postop Eval Completion status Anesthesia document: Postop Eval 1 completed: Yes Anesthesia Postop Eval I Summary Anesthesia Postop Eval I Summary: Anesthesia Postop Eval I: Assessment Summary Airway patent No 05/11/24 12:16 TRANSITIONS MANAGER [email or web address] Spontaneous unlabored No 05/11/24 12:16 TRANSITIONS MANAGER [email or web address] respirations Mental status Awake 05/11/24 12:16 [email or web address] [email or web address] [email or web address] nausea No 05/11/24 12:16 TRANSITIONS MANAGER [email or web address] Vomiting No 05/11/24 12:16 TRANSITIONS MANAGER [email or web address] Anesthesia Postop Eval I: Fluid Summary Crystalloid volume administer 1,000 05/11/24 12:16 TRANSITIONS MANAGER [email or web address] (ml) Colloids volume administered ( ml) Blood Product volume administered (ml) Total IV fluid infused 1,000 05/11/24 12:16 TRANSITIONS MANAGER [email or web address] Anesthesia Postop Eval I: Summary Notes Anesthesia Complication No 05/11/24 12:16 TRANSITIONS MANAGER [email or web address] Anesthesia Complication Comment: Post-operative progress note Anesthesia: Postop Eval II Evaluation Mental status: Awake Pain Level: 0 nausea: No Vomiting: No
--- NOTE | 2024-05-11 13:42 | PCM.POSTANE2 ---
Anesthesia Postop Eval I Sum Postop Eval Completion status Anesthesia document: Postop Eval 1 completed: Yes Anesthesia Postop Eval I Summary Anesthesia Postop Eval I Summary: Anesthesia Postop Eval I: Assessment Summary Airway patent No 05/11/24 12:16 [email or web address] Spontaneous unlabored No 05/11/24 12:16 [email or web address] respirations Mental status Awake 05/11/24 12:16 [email or web address] nausea No 05/11/24 12:16 [email or web address] Vomiting No 05/11/24 12:16 [email or web address] Anesthesia Postop Eval I: Fluid Summary Crystalloid volume administer 1,000 05/11/24 12:16 [email or web address] (ml) Colloids volume administered ( ml) Blood Product volume administered (ml) Total IV fluid infused 1,000 05/11/24 12:16 [email or web address] Anesthesia Postop Eval I: Summary Notes Anesthesia Complication No 05/11/24 12:16 [email or web address] Anesthesia Complication Comment: Post-operative progress note Anesthesia: Postop Eval II Evaluation Mental status: Awake Pain Level: 0 nausea: No Vomiting: No
--- NOTE | 2024-05-11 13:52 | OP.PCM_ITS ---
Operative Report (Standard) Operative Information Surgery/Procedure Performed: L4-S1 oblique lumbar interbody fusion Surgeon: Buck Guerrero Date of Procedure: 05/11/24 Procedure Start Time: 08:14 Procedure Stop Time: 11:50 Pre-Operative Diagnosis: L5-S1 spondylolisthesis, L4-S1 disc degeneration with stenosis, neurogenic claudication Post-Operative Diagnosis: Same Select all DRAINS/GRAFTS/IMPLANTS that apply: Graft Graft details: Allograft cancellous bone chips, autologous bone marrow aspirate and Implanted device Implanted device details: DePuy cougar peek cage Type of Anesthesia: General Estimated Blood Loss: 50 cc Specimen collected: No Description of surgery: Preoperative diagnosis: L5-S1 spondylolisthesis, L4-S1 disc degeneration, stenosis with neurogenic claudication Postoperative diagnosis: Same Name of procedures L4-S1 oblique lumbar interbody fusion (OLIF), minimally invasive left sided approach, lateral decubitus: ? L4-5 anterolateral spinal fusion 78786 ? L5-S1 anterolateral fusion 59956/51 ? L4-5 insertion of cage [id number] ? L5-S1 insertion of cage 64174/51 ? Bone graft aspirate left iliac crest separate incision ? Allograft cancellous chips Attending Surgeon: Dr. Buck Guerrero Co-surgeon: Dr. Matthew Ahn Estimated blood loss: 50 mL Anesthesia: General Complications: None Indications: Patient is a 54-year-old pleasant lady who has had a long history of low back pain and left worse than right lower extremity radiation, difficulty walking distances. Xrays & MRI revealed prior postsurgical changes of L5-S1 left laminotomy with iatrogenic instability at L5-S1 with grade 1 spondylolisthesis, L4-S1 disc degeneration with stenosis. After undergoing a prolonged period of nonoperative treatment, the patient elected to undergo surgical decompression & fusion. All surgical options were discussed with the patient including anterior and posterior approaches. All risks and benefits associated with the procedure were explained to the patient. The risks include but are not limited to infection, bleeding, injury to nerves and vessels including major vessels like IVC and aorta, persistent paresthesia, persistent pain, dural tear, need for further procedures, adjacent segment degeneration, pseudoarthrosis, hardware failure, retrograde ejaculation, paralytic ileus, etc. Procedure: The patient was identified in the preoperative holding suite using Unique patient identifiers. Skin was marked, consent was reviewed, and all questions were answered. The patient was then brought back to the operative room. A surgical timeout was performed to make sure correct procedure was being done on the correct patient and all operative room staff were on the same page. General endotracheal anesthesia was then given to the patient. Yoder catheter was inserted. The patient was then carefully positioned in right lateral decubitus position with the left side up on a regular OR table. Axillary roll was placed and all bony prominences were well- padded. Hip positioners were placed in the posterior buttocks and anterior sternal area. The surgical area was prepped and draped in usual fashion. Preoperative antibiotic was injected IV as preoperative antibiotic. A final timeout was then again done just before starting the procedure. A 2 inch incision oblique was taken in the left lower quadrant of the abdomen 2 fingerbreadths away from the iliac crest and the lower ribs. Sharp dissection with Bovie was carried out up to the fascia covering the external oblique. The external oblique, internal oblique and transversus abdominis muscles were split along the muscle fibers and retroperitoneal space was entered. Sponge sticks were utilized to move the bowel and peritoneum fra-mm-wrh-way and psoas muscle was exposed staying within the retroperitoneal plane. [employer] retractor system was positioned and the retractor blade was applied onto the psoas. The interval between psoas and midline structures was developed and appropriate retractors were placed. Once adequate interval was cleared, a disc space was identified and a marker x-ray was taken. This identified the L4-5 disc level. The prepsoas interval was then traced inferiorly to expose the left lateral annulus of the L5-S1 disc lateral to the bifurcated vessels. Annulotomy was done with a long handled knife starting at L5-S1. Pituitary was used to remove disc material. Curettes were used to prepare the endplates. Disc space spreaders were utilized to distract and increase the disc height. Near complete discectomy was performed. Trials of serially increasing sizes were used. A Jamshidi needle was used to aspirate bone marrow from the left anterior iliac crest through a separate incision and this aspirate was mixed with the allograft bone chips. A Depuy Bowdle cage of size of the 18 x 45 x 14 mm with 15 degrees lordosis was packed with corticocancellous allograft bone chips mixed with bone marrow aspirate. This was inserted into the L5-S1 disc space. The retractors were then repositioned to expose the L4-5 disc and the procedure was repeated with complete discectomy and endplate preparation. Smaller disc distractors were also used to bluntly perform a contralateral annulotomy at the L4-5 level. Cage size was 18 x 45 x 12 mm at L4-5. AP and lateral C-arm pictures were taken to confirm good position of the cage. Some bone chips were also packed around the cages. Screw with washer was placed into the lower L4 body with a washer partially covering the cage at L4-5. Hemostasis was confirmed. The retractor blades were removed. Closure was done in layers with a continuous strand of # 1 Vicryl in all muscle layers. 2-0 Vicryl was used for subcutaneous tissue and 4-0 for Monocryl for the skin. Steri-Strips were applied and 4 x 4 gauze and Tegaderm were applied. Dr. Matthew Ahn, vascular surgeon, was the co-surgeon who helped with the anterolateral access to the lumbar spine. Office Workforce Planner Angela Turner PA-C. My physician hospital nursing assistant was a vital part of this case. They were important in appropriate retraction during the case, and protection of soft tissues during the procedure. Their intimate knowledge of the case and my steps aided in safe and expedient completion of the procedure as well as appropriate position of the patient during the surgery. They were also vital in assisting with closure under my direct supervision. Surgical Findings: See operative note Metal Filer documentation specialist: Yes Sales Enablement Manager: Matthew Ahn Tasks completed by assistant at surgery: Opening & closing, Dissecting tissue, Removing tissue, Hemostasis: Electrocautery, Retracting and Other (Co-surgeon, vascular surgery for access) Additional hospital nursing assistant?: Yes Additional Office Workforce Planner #2: Angela Turner Tasks completed by hospital nursing assistant #2: Closing, Removing tissue, Hemostasis: Electrocautery and Retracting Complications Complications: No Procedures Musculoskeletal [id number]-[id number]: Other Procedure See Report
--- NOTE | 2024-05-11 13:59 | PCM.OPRPT ---
Operative Report (Standard) Operative Information Surgery/Procedure Performed: L4-S1 posterior spinal instrumented fusion Surgeon: Buck Guerrero Date of Procedure: 05/11/24 Procedure Start Time: 08:14 Procedure Stop Time: 11:50 Pre-Operative Diagnosis: L5-S1 spondylolisthesis, L4-S1 disc degeneration with stenosis, neurogenic claudication Post-Operative Diagnosis: Same Select all DRAINS/GRAFTS/IMPLANTS that apply: Graft Graft details: Allograft cancellous bone chips and Implanted device Implanted device details: DePuy Viper prime pedicle screw instrumentation Type of Anesthesia: General Estimated Blood Loss: 50 cc Specimen collected: No Description of surgery: Preoperative diagnosis: L5-S1 spondylolisthesis, L4-S1 disc degeneration, stenosis with neurogenic claudication Postoperative diagnosis: Same Name of procedures: L4-S1 posterior percutaneous pedicle screw instrumented fusion, prone: ? L4-5 posterior spinal fusion 89218 ? L4-S1 posterior pedicle screw instrumentation 19596 ? L5-S1 posterior fusion 02344/51 ? Allograft cancellous chips [id number] Attending Surgeon: Dr. Buck Guerrero Estimated blood loss: 50 mL (total for entire case) Anesthesia: General Complications: None Description of procedure: After the anterior procedure was complete, the patient was then turned supine. The patient was then transferred to Stevo table in prone position. Back was prepped and draped in usual fashion. C-arm AP view was then taken. C-arm was positioned in a way that L4 was centralized and superior endplate of was parallel to the beam. Spinous process was centered between the pedicles. Midline was marked with skin marker and lateral borders of the pedicles were also marked. Skin marker was also utilized to leonela transversely across the middle of the pedicles at L4. 2 transverse paramedian incisions of 1 inch were placed. The fascia was incised vertically. Finger dissection was utilized to palpate the transverse process and facet joint. Viper Prime screws with towers were inserted and docked onto the transverse processes. This was then slowly moved medially to reach the superior articular process of L4. This was then confirmed on C-arm and then a mallet was utilized to drive the trocar into the pedicle going up to the medial wall of the pedicle on AP view. This was performed both sides. C-arm lateral view confirmed that the tip of the trocar was in the vertebral body, and the screw was advanced into the pedicle and vertebral body. This was repeated similarly at L5 and S1 bilaterally. Screw sizes were 7 x 45 mm at L4, L5 and S1 on both sides. 65 mm precontoured titanium 5.5 mm lordotic alex on both sides were then passed through the screw extensions and reduced down to the screws with the help of [employer] instrumentation system on both sides. AP and lateral view of the C-arm showed good positioning of the screws and cages. Final tightening with the torque screwdriver was then completed. Benji was utilized to roughen the facet joint at L4-5 and L5-S1 on the right side. Cancellous allograft bone chips mixed with bone marrow aspirate were then placed over this decorticated area. Hemostasis was achieved. Closure was done in layers with 0 Vicryls for the fascia, 2-0 Vicryls for the subcutaneous tissue, and Monocryl for the skin. Dermabond was applied. Dressings were applied covered with Tegaderm. The patient was then turned supine onto a hospital bed. The patient was extubated and taken to PACU in stable condition. The patient tolerated the procedure well and no complications occurred. Depuy [place] cage & Viper Prime minimally invasive pedicle screw instrumentation system was utilized in this case. No dural tear was identified intraoperatively. I was present for the entirety of the case and performed the surgery. Cpc Coder Angela Turner PA-C. My physician title i instructional assistant was a vital part of this case. They were important in appropriate retraction during the case, and protection of soft tissues during the procedure. Their intimate knowledge of the case and my steps aided in safe and expedient completion of the procedure as well as appropriate position of the patient during the surgery. They were also vital in assisting with closure under my direct supervision. Surgical Findings: See operative note Imaging Analyst music engineer: Yes Cleat Layer: Angela Turner Tasks completed by entry level administrative assistant: Closing, Implanting device and Retracting Complications Complications: No Procedures Musculoskeletal 20xxx-29xxx: Other Procedure See Report
[2024-05-11] MEDS: Morphine 2 MG/ML Syringe IV ×3 (14:53→21:33)
[2024-05-11] MEDS: 0.9% Saline Lock 10 ML Syringe IV ×2 (16:50→18:06)
--- NOTE | 2024-05-11 17:14 | PCM.PN.HOSP ---
Reason for Visit Reason for Visit: L5-S1 spondylolisthesis, L4-S1 disc degeneration with stenosis, neurogenic claudication) Subjective Subjective Middle-aged, white female who presented for L4-S1 oblique lumbar interbody fusion due to L5-S1 spondylolisthesis, L4-S1 disc degeneration with stenosis and neurogenic claudication. Patient developed bilateral foot drop. Past medical history includes NORMA with CPAP utilization, bipolar disorder, essential hypertension, ADHD and hyperlipidemia. Preoperative laboratory data reviewed and overall no significant abnormalities other than some mild hypokalemia and patient does appear to have some CKD stage IIIa. We have been consulted postoperatively for medical management of her chronic medical issues. Patient currently complaining of some pain and needing to urinate. No other issues at this time. Is asking if it is time for pain medication which I did discuss with nursing. Objective Data Objective Data Vital Signs: Vital Signs Temp Pulse Resp BP Pulse Ox O2 Del Method O2 Flow Rate 98.7 F 77 16 112/81 H 95 Nasal Cannula 2 05/11/24 16:00 05/11/24 16:00 05/11/24 16:00 05/11/24 16:00 05/11/24 16:00 05/11/24 16:00 05/11/24 16:00 Oxygen Flow Rate (L/min) 2 Oxygen Delivery Method Nasal Cannula Weight: 72 kg Body Mass Index (BMI) 27.2 Intake & Output: Intake and Output for Last 24 Hours 05/09/24 05/10/24 05/11/24 23:59 23:59 23:59 Intake Total 1362 / 1362 Output Total 600 / 600 Balance 762 / 762 Lab / Micro Data 04/29/24 08:51 04/29/24 08:51 Labs: Laboratory Results - last 24 hr 05/11/24 05:58: POC Glucose 265 H 05/11/24 13:01: POC Glucose 151 H Micro: Microbiology 04/29/24 08:51 Swab (Method) Nasal Screen MRSA/MSSA - Final Radiography Diagnostic Testing: Radiology Impression Lumbar Spine X-Ray 05/11/24 07:47 IMPRESSION: Intraoperative fluoroscopic services provided for fusion at the L4-L5 and L5-S1 levels. Electronically Signed: Rivera Blakely MD at 12:13 EST , Physical Exam Const alert, oriented x3, no apparent distress and well nourished Constitutional Narrative: Slightly overweight, middle-aged, white female, appears older than stated age, sitting up in bed, does not appear toxic HEENT head/scalp atraumatic and moist oral mucous membranes Head and Scalp: normocephalic Resp normal respiratory effort, no retractions, no use of accessory muscles and No clear to auscultation bilaterally Resp Narrative: Diffusely diminished with few scattered expiratory wheezes Cardio regular rate, regular rhythm, S1 normal heart sound, S2 normal heart sound, no murmurs, no rub, no gallops and no clicks GI normal to inspection, nondistended, normoactive bowel sounds and soft to palpation GI Narrative: Mild tenderness on left flank area Extremity no clubbing, cyanosis or edema Extremity Narrative: 2+ pedal pulses Neuro oriented x3, moves all extremities and no focal motor deficits Speech: speech normal Psych Psych Narrative: Appears mildly anxious, interacts appropriately, answers all questions Assessment & Plan Assessment/Plan (1) Foot drop, bilateral: (2) Spondylolisthesis, lumbar region: (3) Lumbar spine instability: (4) DDD (degenerative disc disease), lumbar: (5) DDD (degenerative disc disease), lumbosacral: PLAN: Plan L5-S1 spondylolisthesis/L4-S1 disc degeneration with stenosis/neurogenic claudication -Postop day 0 L4-S1 oblique lumbar interbody fusion -Management per primary service -Would recommend scheduled bowel regimen -PT/OT per primary service Essential hypertension/hyperlipidemia -Continue amlodipine -Continue rosuvastatin CKD stage IIIa -Baseline serum creatinine elevated on outpatient labs at 1.1-1.3 -Lab pending for a.m. History of hypokalemia -Potassium on preoperative lab 04/29/2024 showed a potassium of 3.3 -Magnesium level was normal at that time -AM BMP is pending NORMA -Would recommend continued CPAP until discharge ADHD/bipolar disorder -Hold Adderall while hospitalized -Continue home aripiprazole -Continue home Lexapro -Continue home trazodone History of tobacco abuse -Quit in late March -Recommend ongoing cessation especially with current surgery DVT prophylaxis -Per primary Charges/Coding Visit Charges Inpatient E&M: 22458 Subs Hosp L2
[2024-05-11] MEDS: Methocarbamol 500 MG Tablet 1000 MG PO ×2 (18:12→21:33)
[2024-05-11] MEDS: traZODone 100 MG Tablet PO (21:32)
[2024-05-11] MEDS: Atorvastatin Calcium 20 MG Tablet PO (21:32)
[2024-05-11] MEDS: Senna/Docusate Sodium 1 Tablet 2 TABLET PO (21:32)
[2024-05-12 00:15] VITALS: BP 124/86; PULSE 74; RESP 18; TEMP 37.1; O2SAT 98
[2024-05-12 02:50] VITALS: BP 139/81; PULSE 89; RESP 18; TEMP 37; O2SAT 94
[2024-05-12] MEDS: oxyCODONE 5 MG Tablet PO ×2 (02:52→10:03)
[2024-05-12 05:32] VITALS: BP 112/76; PULSE 98; RESP 18; TEMP 36.8; O2SAT 99
[2024-05-12] MEDS: 0.9% Saline Lock 10 ML Syringe IV (05:34)
[2024-05-12] MEDS: Morphine 2 MG/ML Syringe IV (05:34)
[2024-05-12] MEDS: Acetaminophen 500 MG Tablet 1000 MG PO ×2 (05:44→13:39)
[2024-05-12 06:48] LABS: Hematocrit 36.3 % (37-47); Hemoglobin 12.5 g/dL (12.0-15.0); Mean Corp Hgb Conc 34.4 g/dL (32-36); Mean Corpuscular Hgb 30.1 pg (27.0-32.0); Mean Corpuscular Volume 87.5 fL (81-99); Mean Platelet Vol. 10.1 fl (6.2-12.0); Platelet Count 204 K/mm3 (150-450); RBC Distribution Width CV 13.5 % (11.6-14.6); RBC Distribution Width SD 43.1 fl (35.1-43.9); Red Blood Count 4.15 M/mm3 (4.2-5.4); White Blood Count 14.8 K/mm3 (4.4-11.0)
--- NOTE | 2024-05-12 07:00 | RAD_ITS ---
STUDY: X-RAY - LUMBAR SPINE REASON FOR EXAM: Female, 54 years old. s/p lumbar fusion -- please do upright AP and LAT TECHNIQUE: 2 view(s) of the lumbar spine were obtained. COMPARISON: 01/21/2024 FINDINGS: Normal lumbar lordosis. Mild levoscoliosis centered at L3. Status post discectomy, interbody fusion, transpedicular fixation from L4 through S1 with anatomic alignment. Normal vertebral bodies and endplates. Normal disc space heights. The soft tissue structures are unremarkable. RAD/Lumbar Spine 2 or 3 Views IMPRESSION: Status post discectomy, interbody fusion, transpedicular fixation from L4 through S1. Mild levoscoliosis. Electronically Signed: Nuno Montejo MD at 8:50 EST ,
[2024-05-12 07:22] LABS: Anion Gap 7 (5-15); BUN 12 mg/dL (7-18); BUN/Creat Ratio 11.5 RATIO (10-20); Calcium,Total 8.7 mg/dL (8.5-10.1); Chloride 111 mmol/L (98-107); Creatinine, Serum 1.04 mg/dL (0.55-1.02); EST Glomerular Filtration Rate 59 mL/min (>60); Est Glom Filt Rate - Afr Amer 71 mL/min (>60); Estimated Creatinine Clearance 60.16 ml/min; Glucose 135 mg/dL (74-106); Potassium 3.6 mmol/L (3.5-5.1); Sodium Level 139 mmol/L (136-145)
--- NOTE | 2024-05-12 07:34 | PCM.PN.HOSP ---
Reason for Visit Reason for Visit: Diagnoses Foot drop, right foot (05/11/24) Foot drop, left foot (05/11/24) Spondylolisthesis, lumbar region (05/11/24) Other intervertebral disc degeneration, lumbar region (05/11/24) Other intervertebral disc degeneration, lumbosacral region (05/11/24) Spinal instabilities, lumbar region (05/11/24) Encounter for other preprocedural examination (05/11/24) Subjective Subjective Patient evaluated at bedside, feeling well, looking forward to going home. No acute complaints Objective Data Objective Data Vital Signs: Vital Signs Temp Pulse Resp BP Pulse Ox O2 Del Method O2 Flow Rate 98.2 F 98 18 112/76 99 Room Air 2 05/12/24 05:32 05/12/24 05:32 05/12/24 05:32 05/12/24 05:32 05/12/24 05:32 05/12/24 05:32 05/11/24 16:00 Oxygen Flow Rate (L/min) 2 Oxygen Delivery Method Room Air Weight: 72 kg Body Mass Index (BMI) 27.2 Intake & Output: Intake and Output for Last 24 Hours 05/10/24 05/11/24 05/12/24 23:59 23:59 23:59 Intake Total 1782 / 1782 300 / 300 Output Total 750 / 750 Balance 1032 / 1032 300 / 300 Lab / Micro Data 05/12/24 05:52 05/12/24 05:52 Labs: Laboratory Results - last 24 hr 05/11/24 13:01: POC Glucose 151 H 05/12/24 05:52: WBC 14.8 H, RBC 4.15 L, Hgb 12.5, Hct 36.3 L, MCV 87.5, MCH 30.1, MCHC 34.4, RDW Std Deviation 43.1, RDW Coeff of Shiraz 13.5, Plt Count 204, MPV 10.1, Sodium 139, Potassium 3.6, Chloride 111 H, Carbon Dioxide 21.0, Anion Gap 7, BUN 12, Creatinine 1.04 H, Estim Creat Clear Calc 60.16, Est GFR (MDRD) Af Amer 71, Est GFR (MDRD) Non-Af 59 L, BUN/Creatinine Ratio 11.5, Glucose 135 H, Calcium 8.7 Micro: Microbiology 04/29/24 08:51 Swab (Method) Nasal Screen MRSA/MSSA - Final Radiography Diagnostic Testing: Radiology Impression Lumbar Spine X-Ray 05/11/24 07:47 IMPRESSION: Intraoperative fluoroscopic services provided for fusion at the L4-L5 and L5-S1 levels. Electronically Signed: Rivera Blakely MD at 12:13 EST , Physical Exam Narrative General: Alert, oriented, no apparent distress HEENT: Atraumatic, normocephalic Eyes: extraocular movements grossly intact Neck: Supple Respiratory: normal respiratory effort Cardiovascular: no edema appreciated GI: nondistended Extremities: Moving all extremities Neuro: No overt focal neurological deficits Psych: Cooperative Assessment & Plan Assessment/Plan (1) Foot drop, bilateral: (2) Spondylolisthesis, lumbar region: (3) Lumbar spine instability: (4) DDD (degenerative disc disease), lumbar: (5) DDD (degenerative disc disease), lumbosacral: PLAN: Plan #HTN -Continue amlodipine, BP 112/76 this a.m. # CKD stage III a -Appears to be at baseline -Continue to follow-up with primary care physician #L5-S1 spondylolisthesis/L4-S1 disc degeneration with stenosis/neurogenic claudication -s/p L4-S1 oblique lumbar interbody fusion 05/11 w/ Dr. Guerrero -Management per primary service -PT/OT per primary service #NORMA -Would recommend continued CPAP until discharge if applicable # History of mood disorder/ADHD -Continue Abilify, Lexapro, trazodone -Can resume Adderall on DC #Leukocytosis -Suspect reactive, no focal complaints that would be indicative of underlying infection and pt afebrile #DVT ppx: Per primary Ngoc Vogel MD Charges/Coding Visit Charges Inpatient E&M: 15099 Subs Hosp L1
[2024-05-12 08:00] VITALS: BP 104/71; PULSE 77; RESP 18; TEMP 36.7; O2SAT 98
[2024-05-12] MEDS: Methocarbamol 500 MG Tablet 1000 MG PO ×2 (10:03→13:39)
[2024-05-12] MEDS: ARIPiprazole 10 MG Tablet PO (10:03)
[2024-05-12] MEDS: Meloxicam 15 MG Tablet PO (10:04)
[2024-05-12] MEDS: amLODIPine 5 MG Tablet PO (10:04)
[2024-05-12] MEDS: Escitalopram Oxalate 10 MG Tablet PO (10:04)
[2024-05-12] MEDS: Senna/Docusate Sodium 1 Tablet 2 TABLET PO (10:05)
--- NOTE | 2024-05-12 10:30 | CASEMGMT ---
Addendum entered by Liz Centeno 05/12/24 11:23: Strata: 1 Original Note: RN CM GAS FITTER CM to room to meet with patient for initial transition planning/care coordination assessment. RN CM introduced self and role at [facility]. Pt voices understanding and consents to assessment at this time. Pt sitting up in chair in no distress at this time. Daughter, Julianna, and Julianna's fiance @ bedside and pt agreeable to them remaining present during assessment. Pt is A/O at this time and answers all questions appropriately. Care providers, pharmacy, and demographics verified/updated at this time. PCP: Dr Jean Marie Quintero Specialists: Dr Piper. Pt states she also sees a psychiatric nurse and counselor. Preferred Pharmacy: [facility] for maintenance medications. Would like to use [facility] @ discharge. Insurance: [employer]. States she does not have a Surgical Device Sales Representative. Prescription Benefit: Yes Living Will/HPOA: States does not have LW or HCPOA . Interested in more information and would like to talk to to complete paperwork. ABDIEL, Isi, notified. LNOK: 4 adult children. One daughter's name is Julianna. Living Arrangements: Lives alone in 1st-floor apt w/one step to enter. Independent w/ADL's and IADL's. Julianna can assist, if needed, but lives in [place], so not able to come often. Transportation: Pt drives and denies having transportation concerns. DME: Pt states she has the following: Has a cane and rollator available, but does not use. States has sleep apnea and used to have a CPAP but no longer uses it. Pt would like a shower chair w/backrest. Made aware pt's insurance may cover for a shower chair, but not certain. Verbal list provided of several local DME co's that carry shower chairs. Pt and daughter state will take to local [facility] and pick one up there. Made aware a script can be provided @ discharge. Pt and daughter also interested in medical alert info. MS3 RN CM, Deb, made aware and will provide this. HHC/SNF: No history of either and denies needs. No needs identified. PT/OT evals reviewed. No additional therapy recommended. Pt wishes to return home and states has no concerns with going home at time of discharge. CM to follow for any further discharge planning/needs. Pt and daughter voice no further concerns/needs at this time. Advised them to ask for CM if any further questions/concerns/needs arise. They voice understanding. PLAN: Home Berny GUIDO RN CM
--- NOTE | 2024-05-12 11:00 | CASEMGMT ---
RN SYEDA informed pt would like a script for shower bench and information about medical alert. RITCHIE LANDA into pt room, provided script and information to pt regarding medical alert options. Pt denies questions or concerns at this time.
--- NOTE | 2024-05-12 11:23 | CASEMGMT ---
Social Work- SW met with pt to complete directives per pt request. Pt named daughter Julianna lemos as primary agent; no alternates. Pt was provided with original; copy given to daughter and also placed on chart. Pt reports no other needs at this time. RODRIGO Stanley
--- NOTE | 2024-05-12 11:29 | OP.PCM_ITS ---
Operative Report (Standard) Operative Information Surgery/Procedure Performed: L4-S1 oblique lumbar interbody fusion (OLIF), m inimally invasive left sided approach, lateral decubitus: ? L4-5 anterolateral spinal fusion 55522 ? L5-S1 anterolateral fusion 89789/51 ? L4-5 insertion of cage 27970 ? L5-S1 insertion of cage 52753/51 ? Bone graft aspirate left iliac crest separate incision ? Allograft cancellous chips Surgeon: Co surgeons: Dr. Guerrero, Dr. Ahn Date of Procedure: 05/11/24 Procedure Start Time: 08:15 Procedure Stop Time: :15 Pre-Operative Diagnosis: Pre-Operative Diagnosis: L5-S1 spondylolisthesis, L4-S1 disc degeneration with stenosis, neurogenic claudication Post-Operative Diagnosis: same Select all DRAINS/GRAFTS/IMPLANTS that apply: Implanted device Implanted device details: Select all DRAINS/GRAFTS/IMPLANTS that apply: Graft Graft details: Allograft cancellous bone chips, autologous bone marrow aspirate and Implanted device Implanted device details: DePuy cougar peek cage Type of Anesthesia: General Estimated Blood Loss: 50 Specimen collected: No Description of surgery: HPI: Patient is a 54-year-old female with multilevel lumbar degenerative disc disease evaluated by Dr. Guerrero and felt to be appropriate for oblique lumbar interbody fusion of L4-L5 and L5-S1. Vascular surgery assistance is requested for exposure to mobilized and protected the pelvic vasculature. Description of procedure: Upon obtaining form consent and verification correct patient procedure site patient was taken to the operating where she was placed under general anesthesia. She was then positioned prepped and draped in usual sterile fashion and timeout is performed. Oblique incision was made and Bovie electrocautery used to dissect down through the subcutaneous tissue to the level the fascia. The fascia was then incised parallel to the external oblique muscular fibers and the muscle split with blunt dissection. The internal oblique and transversalis muscles likewise were split along the orientation of the fibers and hand-held retractors moved deeper into the wound. Blunt dissection was then used to develop a plane in the retroperitoneum mobilizing the abdominal contents from the lateral and posterior abdominal wall displacing them toward the midline. Once the psoas muscle was visualized along its medial border the Syn frame self-retaining retractor was then put into position. Fur ther blunt dissection and Bovie dissection were utilized to expose the L4-L5 disc. The disc was then marked and we carried our dissection distally down to the L5-S1 disc space. This was dissected free with no iliolumbar vein visualized or encountered. Once satisfactory visualization of the L5-S1 disc was obtained Dr. Guerrero performed his discectomy and implant insertion which he will describe in further detail separately. Attention was again turned to the L4-L5 disc with the discectomy and implant insertion described by Dr. Guerrero. Once this was completed the retroperitoneum was inspected for hemostasis and self-retaining retractors removed along the abdominal contents to return to the [place] position. The muscle layer was then closed with 1 Vicryl in running fashion individually. Superficial wound was then copiously irrigated with saline and the skin closed with 3-0 Vicryl followed by 4-0 Monocryl. Dry sterile dressing was then applied the patient was repositioned for posterior approach. Surgical Findings: see above Outdoor Landscape Architect outdoor adventure leader: Yes Computer Programmer: Angela Turner Tasks completed by first leveler: Opening & closing and Retracting Complications Complications: No
--- NOTE | 2024-05-12 12:10 | PN.ORTHO_ITS ---
Subjective Subjective Seem with Dr. Guerrero. Patient is postop day 1 L4-S1 lumbar fusion. She was sitting upright in a recliner upon arrival. She is doing well postoperatively with her pain well- managed on the current regimen. She has walked with therapy and is cleared for discharge from their end. She has passed flatus and tolerated a solid meal. Ready for home discharge today. Says that she does have left-sided hip pain however this is related to the surgery incision. Objective Data Objective Data Vital Signs: Vital Signs Temp Pulse Resp BP Pulse Ox O2 Del Method O2 Flow Rate 98.1 F 77 18 104/71 98 Room Air 2 05/12/24 08:00 05/12/24 08:00 05/12/24 08:00 05/12/24 08:00 05/12/24 08:00 05/12/24 08:04 05/11/24 16:00 Oxygen Flow Rate (L/min) 2 Oxygen Delivery Method Room Air Weight: 158 lb 11.725 oz Body Mass Index (BMI) 27.2 Intake & Output: Intake and Output for Last 24 Hours 05/10/24 05/11/24 05/12/24 23:59 23:59 23:59 Intake Total 1782 / 1782 300 / 300 Output Total 750 / 750 Balance 1032 / 1032 300 / 300 Lab / Micro Data 05/12/24 05:52 05/12/24 05:52 Labs: Laboratory Results - last 24 hr 05/11/24 13:01: POC Glucose 151 H 05/12/24 05:52: WBC 14.8 H, RBC 4.15 L, Hgb 12.5, Hct 36.3 L, MCV 87.5, MCH 30.1, MCHC 34.4, RDW Std Deviation 43.1, RDW Coeff of Shiraz 13.5, Plt Count 204, MPV 10.1, Sodium 139, Potassium 3.6, Chloride 111 H, Carbon Dioxide 21.0, Anion Gap 7, BUN 12, Creatinine 1.04 H, Estim Creat Clear Calc 60.16, Est GFR (MDRD) Af Amer 71, Est GFR (MDRD) Non-Af 59 L, BUN/Creatinine Ratio 11.5, Glucose 135 H , Calcium 8.7 Micro: Microbiology 04/29/24 08:51 Swab (Method) Nasal Screen MRSA/MSSA - Final Radiography Diagnostic Testing: Radiology Impression Lumbar Spine X-Ray 05/11/24 07:47 IMPRESSION: Intraoperative fluoroscopic services provided for fusion at the L4-L5 and L5-S1 levels. Electronically Signed: Rivera Blakely MD at 12:13 EST , Lumbar Spine X-Ray 05/12/24 07:00 IMPRESSION: Status post discectomy, interbody fusion, transpedicular fixation from L4 through S1. Mild levoscoliosis. Electronically Signed: Nuno Montejo MD at 8:50 EST , Physical Exam Narrative Neurological exam of the lower extremity shows 4+ power with left ankle plantar flexion, all other muscle groups shows 5 power. Pain with hip flexion bilaterally. Tegaderm and gauze intact over back incisions. Belly incision was reinforced with more Tegaderm so that the gauze was not exposed. Const alert, oriented x3 and no apparent distress Assessment & Plan Assessment/Plan (1) Status post lumbar spinal fusion: PLAN: Plan Post op day 1 L4-S1 lumbar fusion. PT/OT cleared. She has passed flatus and tolerated a solid meal. Ready for home discharge from an orthopedics perspective. Home meds include oxycodone, Robaxin, meloxicam, acetaminophen, and senna. Follow up in clinic in 2 weeks.
[2024-05-12] MEDS: FLU VACC 2024-25(6MOS UP)/PF 45 MCG/0.5 ML SYRINGE IM (13:37)
--- NOTE | 2024-05-12 13:42 | PHA.DC.MC.R ---
Pharmacy [facility] Pharm[facility] Service has performed discharge medication reconciliation and counseling for this patient. The patient's discharge medication list was reviewed for discrepancies and discrepancies were resolved. The patient was counseled on the following discharge medications and changes in medications for homegoing were reviewed. The Reason for Use, instructions for use, and potential side effects were reviewed for all new medications. The patient's questions regarding all of their medications were answered. 1. Acetaminophen 500 mg PO Q6H PRN pain 2. Meloxicam 15 mg PO daily 3. Methocarbamol 750 mg PO TID PRN pain/spasm 4. Oxycodone 5 mg PO Q6H PRN pain x 7 days 5: senna/docusate 2 tablets PO BID PRN constipation The patient was able to verbally demonstrate an understanding of their discharge medications. The patient was counselled on new medications by pharmacy technician program director Luis. Medications at Discharge Home Medications aripiprazole 10 mg tablet 10 mg PO DAILY depression 09/28/18 dextroamphetamine-amphetamine 20 mg tablet (Adderall) 30 mg PO DAILY ADHD 09/28/18 escitalopram oxalate 10 mg tablet 10 mg PO DAILY ANXIETY 01/03/23 trazodone 100 mg tablet 100 mg PO QHS SLEEP 01/03/23 amlodipine 5 mg tablet 5 mg PO QDAY HTN 10/22/23 rosuvastatin 10 mg tablet 10 mg PO QHS HLD 10/22/23 acetaminophen 500 mg tablet 500 mg PO Q6H #30 tabs 05/12/24 meloxicam 15 mg tablet 15 mg PO DAILY #30 tabs 05/12/24 methocarbamol 500 mg tablet 750 mg (1.5 x 500 mg) PO TID PRN pain/spasms #30 tabs 05/12/24 oxycodone 5 mg tablet 5 mg PO Q6H PRN pain 7 days #28 tabs 05/12/24 sennosides 8.6 mg-docusate sodium 50 mg tablet (Stimulant Laxative Plus) 2 tab PO BID PRN constipation #30 tabs 05/12/24
[2024-05-12 13:56] VITALS: BP 130/84; PULSE 77; RESP 18; TEMP 36.9; O2SAT 97
== END 2024-05-12 14:03 | disposition home or self-care (01) | DRG 300 ==
PROVIDERS: Anesthesiology; Student in an Organized Health Care Education/Training Program; Admitting Provider Orthopaedic Surgery Orthopaedic Surgery of the Spine; PCP Family Medicine; Referring Provider Orthopaedic Surgery Orthopaedic Surgery of the Spine; Visit Provider Orthopaedic Surgery Orthopaedic Surgery of the Spine
DX: M48.062 Spinal stenosis, lumbar region with neurogenic claudication (principal); E78.00 Pure hypercholesterolemia, unspecified; F31.9 Bipolar disorder, unspecified; N18.31 Chronic kidney disease, stage 3a; I12.9 Hypertensive chronic kidney disease with stage 1 through stage 4 chronic kidney disease, or unspecified chronic kidney disease; E78.5 Hyperlipidemia, unspecified; M43.19 Spondylolisthesis, multiple sites in spine; M48.07 Spinal stenosis, lumbosacral region; G47.33 Obstructive sleep apnea (adult) (pediatric); M48.08 Spinal stenosis, sacral and sacrococcygeal region; F90.9 Attention-deficit hyperactivity disorder, unspecified type; Z90.710 Acquired absence of both cervix and uterus; M51.379 Other intervertebral disc degeneration, lumbosacral region without mention of lumbar back pain or lower extremity pain; Z87.891 Personal history of nicotine dependence; M51.369 Other intervertebral disc degeneration, lumbar region without mention of lumbar back pain or lower extremity pain
CPT/HCPCS: 36415; 72100; 76000; 80048; 82962; 83735; 85025; 85027; 86703; 86706; 86708; 86803; 86850; 86900; 86901; 87081; 90656; 93005; 94668; 97162; 97166; C1713; J7120; A4216; J2405; J3475

== ENCOUNTER → 2025-04-04 | Outpatient (CLI) | payer MEDICAID, SELFPAY ==
--- NOTE | 2025-04-04 11:12 | MRI_ITS ---
PROCEDURE: SPINE LUMBAR W/WO CONTRAST 04/04/2025 REASON FOR EXAM: PAIN, RADICULOPATHY AFTER SURGERY TECHNIQUE: Procedure Code: MRISPLWW Modality: MR Procedure: SPINE LUMBAR W/WO CONTRAST Multiplanar and multisequence images were obtained without and with intravenous gadolinium-based contrast administration. CONTRAST: Clariscan VOLUME: 15 mL COMPARISON: Lumbar spine x-ray 03/20/2025. FINDINGS: Vertebrae: Present by height and signal. Status post fusion L4, L5 and S1. the last designated disc was labeled as S1-S2. Alignment: Normal. Conus Medullaris: Unremarkable. No abnormal enhancement. L1-2: Unremarkable. L2-3: Unremarkable. L3-4: Unremarkable. L4-5: Disc desiccation. Disc bulge. A 2 mm left paracentral disc protrusion. No significant foraminal or canal stenosis. L5-S1: Facet joint arthropathy. Mild bilateral foramina stenosis. No canal stenosis. Sacrum: Unremarkable. Postcontrast images: No abnormal enhancement. MRI/Spine Lumbar W/WO Contrast IMPRESSION: Unremarkable postsurgical changes without abnormal enhancement or acute process . No significant foraminal or canal stenosis. Reading Location: [id number]
--- NOTE | 2025-04-04 11:12 | MRI_ITS ---
PROCEDURE: SPINE LUMBAR W/WO CONTRAST 04/04/2025 REASON FOR EXAM: PAIN, RADICULOPATHY AFTER SURGERY TECHNIQUE: Procedure Code: MRISPLWW Modality: MR Procedure: SPINE LUMBAR W/WO CONTRAST Multiplanar and multisequence images were obtained without and with intravenous gadolinium-based contrast administration. CONTRAST: Clariscan VOLUME: 15 mL COMPARISON: Lumbar spine x-ray 03/20/2025. FINDINGS: Vertebrae: Present by height and signal. Status post fusion L4, L5 and S1. the last designated disc was labeled as S1-S2. Alignment: Normal. Conus Medullaris: Unremarkable. No abnormal enhancement. L1-2: Unremarkable. L2-3: Unremarkable. L3-4: Unremarkable. L4-5: Disc desiccation. Disc bulge. A 2 mm left paracentral disc protrusion. No significant foraminal or canal stenosis. L5-S1: Facet joint arthropathy. Mild bilateral foramina stenosis. No canal stenosis. Sacrum: Unremarkable. Postcontrast images: No abnormal enhancement. MRI/Spine Lumbar W/WO Contrast IMPRESSION: Unremarkable postsurgical changes without abnormal enhancement or acute process . No significant foraminal or canal stenosis. Reading Location: [id number]
== END | disposition home or self-care (01) ==
LOC: OPMRI 11:06
PROVIDERS: PCP Family Medicine; Referring Provider Student in an Organized Health Care Education/Training Program; Visit Provider Student in an Organized Health Care Education/Training Program
DX: M54.16 Radiculopathy, lumbar region (principal); Z98.1 Arthrodesis status
CPT/HCPCS: 72158; A9575